=== PATIENT | female | born 1955 | race Caucasian/White ===

== ENCOUNTER 2020-12-13 08:09 | Outpatient (REF) | payer MEDICARE, SELFPAY ==
[2020-12-13 08:52] LABS: MANUAL DIFF FLAG NO
[2020-12-13 08:53] LABS: Glucose Urine UA NEG (NEG); Leukocyte Esterase Urine 1+ (NEG); Nitrite Urine NEG (NEG); Specific Gravity - Urine 1.025 (1.005-1.025); Urine Blood TRACE (NEG); Urine Ketones NEG (NEG); Urine Protein NEG (NEG-TRACE)
[2020-12-13 08:54] LABS: Basophils Absolute Auto 0.1 X10*3/uL (0.0-0.2); Basophils Percent Auto 1.4 % (0-2); Eosinophils Absolute Auto 0.3 X10*3/uL (0.0-0.4); Eosinophils Percent Auto 5.1 % (0-4); Hematocrit 42.6 % (37-47); Hemoglobin 14.3 g/dl (12.0-16.0); Imm Gran Abs Auto 0.01 X10*3/uL (0.00-0.03); Imm Gran Pct Auto 0.2 % (0.0-0.4); Lymphocytes Absolute Auto 1.3 X10*3/uL (1.2-4.9); Lymphocytes Percent Auto 23.5 % (20-40); Mean Corpuscular HGB Conc 33.6 g/dl (31.0-35.0); Mean Corpuscular Hemoglobin 30.6 pg (27.0-33.0); Mean Corpuscular Volume 91.2 fL (80-98); Mean Platelet Volume 10.2 fL (9.4-12.3); Monocytes Absolute Auto 0.5 X10*3/uL (0.1-1.2); Monocytes Percent Auto 8.1 % (2-11); Neutrophils Absolute Auto 3.5 X10*3/uL (2.0-8.3); Neutrophils Percent Auto 61.7 % (45-73); Platelet Count 247 X10*3/uL (160-400); Red Blood Count 4.67 X10*6/uL (4.20-5.50); Red Cell Distribution Width 12.6 % (11.0-16.0); White Blood Count 5.7 X10*3/uL (4.8-10.8)
[2020-12-13 08:59] LABS: Appearance Urine CLEAR; Color Urine YELLOW
[2020-12-13 09:02] LABS: Estimated Average Glucose 128 mg/dL; Hemoglobin A1c % 6.1 %
[2020-12-13 09:21] LABS: Bacteria Urine TRACE /LPF; RBC Urine 0-2 /HPF (0); Squamous Epithelial Cell Urine 2+ /LPF
[2020-12-13 09:46] LABS: Alanine Aminotransferase 24 U/L (0-31); Albumin Level 3.9 g/dL (3.5-5.0); Alkaline Phosphatase 58 U/L (39-117); Anion Gap 10 (12-20); Aspartate Amino Transferase 20 U/L (5-31); Bilirubin Total 0.7 mg/dL (0.0-1.0); Blood Urea Nitrogen 12 mg/dL (9-16); Calcium 9.1 mg/dL (8.4-10.2); Carbon Dioxide 28 mmol/L (22-29); Chloride 108 mmol/L (96-108); Cholesterol 188 mg/dL; Estimated Glomerular Filt Rate > 60; Glucose Random 105 mg/dL (60-115); HDL Cholesterol 42 mg/dL; LDL Cholesterol Calculated 113 mg/dl; Potassium 3.9 mmol/L (3.3-5.1); Sodium 142 mmol/L (135-145); Total Protein 6.3 g/dL (6.5-8.0); Triglycerides 166 mg/dL
[2020-12-13 10:07] LABS: Free T4 (Free Thyroxine) 0.91 ng/dL (0.71-1.85); Thyroid Stimulating Hormone 3.58 uIU/mL (0.32-4.0); Vitamin D 25-OH Total 43.4 ng/mL (>30)
[2020-12-13 10:24] LABS: Folate 19.2 ng/mL (> or = 4.0); Vitamin B12 259 pg/mL (200-900)
== END 2020-12-13 08:10 | disposition home or self-care (01) ==
LOC: HO.LAB 08:09
PROVIDERS: PCP Internal Medicine; Visit Provider Internal Medicine
DX: E03.9 Hypothyroidism, unspecified (principal); R73.02 Impaired glucose tolerance (oral); E78.00 Pure hypercholesterolemia, unspecified
CPT/HCPCS: 36415; 80053; 80061; 81001; 82306; 82607; 82746; 83036; 84439; 84443; 85025

== ENCOUNTER → 2021-02-09 09:04 | Outpatient (REF) | payer MEDICARE, SELFPAY ==
--- NOTE | 2021-02-09 09:07 | CA_ITS ---
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 Normal LV systolic function with grade 1 diastolic dysfunction 2. Mild tricuspid regurgitation 3. Normal RV systolic pressure 4. No gross pericardial effusion Findings Left Ventricle Normal left ventricular size, thickness, and systolic function. The visually estimated ejection fraction is between 65-70%. Spectral Doppler is indicative of an impaired relaxation filling pattern. E/E prime ratio is <8, consistent with normal filling pressures. Evidence suggests grade I (mild) diastolic dysfunction. Right Ventricle Normal right ventricular cavity size and systolic function. Atria Both atria are normal in size. There is lipomatous hypertrophy of the interatrial septum. There is no evidence of interatrial shunt. Aortic Valve There is mild calcification of the aortic valve. There is no aortic valve stenosis. There is no aortic valve regurgitation. Mitral Valve There is mild anterior and posterior mitral leaflet thickening. There is trace mitral valve regurgitation. There is no mitral valve stenosis. Pulmonic Valve The pulmonic valve is likely normal. There is trace pulmonic valve regurgitation. Tricuspid Valve Normal tricuspid valve structure. There is mild tricuspid valve regurgitation. The right ventricular systolic pressure is normal. The right ventricular systolic pressure is 27 mmHg. Normal right atrial pressure. There is no evidence of pulmonary hypertension. Great Vessels All visible segments of the aorta are normal in size. The pulmonary artery was not well visualized. Venous The inferior vena cava is normal in size and collapses greater than 50% with inspiration. Pericardium/Pleural There is no evidence of pericardial effusion. Prior Study Comparison Changes noted compared to prior study dated: 02/07/2016. tricuspid regurgitation is mild Measurements 2D Linear Measurements IVSd: 1.11 0.6-0.9/0.6-1.0 cm LVIDd: 4.32 3.9-5.3/4.2-5.9 cm LVIDd Index: 2.34 2.4-3.2/2.2-3.1 cm/m2 LVIDs: 3.05 2.0-3.6 cm LVPWd: 1.19 0.7-1.1 cm Ao Root: 3.00 2.1-3.5 cm LA Diam: 2.90 2.7-3.8/3.0-4.0 cm LAIDs Index: 1.57 1.5-2.3 cm/m2 LV Mass: 217.88 67-162/88-224 g LV Mass Index: 117.77 43-95/49-115 g/m2 LVOT Diam: 2.20 3.0+(-)1.3 cm 2D Systolic Function EF 4C: 73.70 >55% EF 2C: 72.70 >55% EF BiP: 74.00 >55% Mitral Valve MV Pk E: 0.54 MV PK A: 0.83 MV Decel Time: 231.00 E/A: 0.70 E'Lateral: 8.27 E'Medial: 4.68 E/E' Med: 11.50 E/E' Lat: 6.50 PHT: 68.00 MVA PHT: 3.24 Decel Tyler: 2.33 Aortic Valve AoV Pk Dylan: 1.32 AoV Pk Grad: 7.00 LVOT LVOT Pk Dylan: 0.85 LVOT Mn Dylan: 0.58 LVOT VTI: 0.19 LVOT Pk Grad: 3.00 LVOT Mn Grad: 2.00 LVOT Diam: 2.20 LVOT Area: 3.80 Diastolic Function MV Pk E: 0.54 MV Pk A: 0.83 E/A: 0.70 E'Medial: 4.68 E/E' Med: 11.50 E' Laterial: 8.27 E/E' Lat: 6.50 Right Ventricle TAPSE (mm): 2.30 Tricuspid Valve TR Pk Dylan: 2.46 TR Pk Grad: 24.00 RA Press: 3.00 RVSP: 27.00 Great Vessels Aorta Ao Root-2D: 3.00 2.0-3.7 cm Ao Asc: 3.40 2.1-3.4 cm Updated in Other Vendor System with Status of Final Tello Salazar MD electronically signed on 02/10/2021 9:03:24 AM with status of Final
== END ==
LOC: HO.CARD 09:04
PROVIDERS: Visit Provider Internal Medicine
DX: I07.1 Rheumatic tricuspid insufficiency (principal)
CPT/HCPCS: 93306

== ENCOUNTER 2021-06-20 18:21 | Outpatient (REF) | payer MEDICARE, SELFPAY | END 2021-06-20 18:22 | disposition home or self-care (01) | LOC: HO.LNP 18:21 | PROVIDERS: Visit Provider Nurse Practitioner Family | DX: M54.50 Low back pain, unspecified (principal) | CPT/HCPCS: 87086 ==

== ENCOUNTER 2021-07-13 09:51 | Outpatient (REF) | payer MEDICARE, SELFPAY ==
--- NOTE | ~2021-07-13 | US_ITS ---
EXAMINATION: US RETROPERITONEAL LIMITED (RENAL ONLY) CLINICAL INFORMATION: Low back pain, unspecified. COMPARISON: None TECHNIQUE: Real-time imaging of the kidneys. FINDINGS: RIGHT KIDNEY: 10.4 x 4.2 x 5.4 cm (SAG x AP x TRV). The kidney is normal in size, contour, and echogenicity. Renal cortical thickness is normal. No calculi or focal parenchymal lesions. There is mild fullness of kidney pelvis. There are scattered echogenic areas likely vascular calcifications. LEFT KIDNEY: 10.2 x 5.1 x 4.3 cm (SAG x AP x TRV). The kidney is normal in size, contour, and echogenicity. Renal cortical thickness is normal. No renal calculi or focal parenchymal lesions. There is mild fullness of left kidney pelvis. US/US renal BI IMPRESSION: 1. Scattered echogenic vascular calcifications throughout the right kidney. 2. No echogenic stones or hydronephrosis seen. There is mild fullness of bilateral kidney pelvis.
[2021-07-13 11:36] LABS: Appearance Urine CLEAR; Color Urine YELLOW; Glucose Urine UA NEG (NEG); Leukocyte Esterase Urine NEG (NEG); Nitrite Urine NEG (NEG); PH 5.5 (5.0-8.0); Urine Blood NEG (NEG); Urine Ketones NEG (NEG); Urine Protein NEG (NEG-TRACE)
== END 2021-07-13 09:52 | disposition home or self-care (01) ==
LOC: HO.US 09:51
PROVIDERS: PCP Internal Medicine; Visit Provider Nurse Practitioner Family
DX: M54.50 Low back pain, unspecified (principal)
CPT/HCPCS: 76775; 81003

== ENCOUNTER 2021-08-08 08:31 | Outpatient (REF) | payer MEDICARE, SELFPAY ==
--- NOTE | ~2021-08-08 | MM_ITS ---
EXAMINATION: MM SCREENING DIGITAL BREAST TOMOSYNTHESIS, BILATERAL CLINICAL INFORMATION: Screening. Asymptomatic. The lifetime risk of breast cancer based on the Tyrer-Cuzick Model is 4.2%. COMPARISON: Mammography: December 07, 2019 and studies dating back to July 25, 2013 TECHNIQUE: Digital breast tomosynthesis is performed in both the craniocaudal and mediolateral oblique views along with computer-aided detection (CAD). Synthesized 2D images are generated from the tomosynthesis. FINDINGS: There are scattered areas of fibroglandular density (ACR BI-RADS breast composition Category b). There are no significant masses, abnormal calcifications, or other abnormalities. MM/MM tomosynthesis screening BI IMPRESSION: There are no significant changes from prior study. ASSESSMENT: BI-RADS 1: Negative RECOMMENDATION: Routine annual mammography screening. This patient's information was entered into a reminder system with a target due date for their next mammogram.
[2021-08-08 10:56] LABS: Anion Gap 12 (12-20); Blood Urea Nitrogen 13 mg/dL (9-16); Carbon Dioxide 29 mmol/L (22-29); Chloride 105 mmol/L (96-108); Estimated Glomerular Filt Rate > 60; Glucose Random 110 mg/dL (60-115); Potassium 4.1 mmol/L (3.3-5.1); Sodium 142 mmol/L (135-145)
== END 2021-08-08 08:32 | disposition home or self-care (01) ==
LOC: HO.MAMMO 08:31
PROVIDERS: Absent Provider Nurse Practitioner Family; PCP Internal Medicine; Visit Provider Internal Medicine
DX: M54.50 Low back pain, unspecified (principal); Z12.31 Encounter for screening mammogram for malignant neoplasm of breast
CPT/HCPCS: 36415; 77063; 77067; 80048

== ENCOUNTER 2022-08-09 08:01 | Outpatient (REF) | payer MEDICARE, SELFPAY ==
--- NOTE | ~2022-08-09 | MM_ITS ---
EXAMINATION: MM SCREENING DIGITAL BREAST TOMOSYNTHESIS, BILATERAL CLINICAL INFORMATION: Screening. Asymptomatic. The lifetime risk of breast cancer based on the Tyrer-Cuzick Model is 4.7%. COMPARISON: Mammography: August 08, 2021 and studies dating back to August 05, 2015 TECHNIQUE: Digital breast tomosynthesis is performed in both the craniocaudal and mediolateral oblique views along with computer-aided detection (CAD). Synthesized 2D images are generated from the tomosynthesis. FINDINGS: There are scattered areas of fibroglandular density (ACR BI-RADS breast composition Category b). There are no significant masses, abnormal calcifications, or other abnormalities. MM/MM tomosynthesis screening BI IMPRESSION: No significant changes ASSESSMENT: BI-RADS 1: Negative RECOMMENDATION: Routine annual mammography screening. This patient's information was entered into a reminder system with a target due date for their next mammogram.
--- NOTE | ~2022-08-09 | MM_ITS ---
EXAMINATION: BONE DENSITOMETRY CLINICAL INDICATION: Osteoporosis. COMPARISON: Previous BD dated 11/10/2019 and baseline BD dated 04/06/2011. TECHNIQUE: Using a [employer] DXA System (software version: 13.1) manufactured by [employer], dual-energy x-ray absorptiometry was performed of the lumbar spine and left hip. The images are of good technical quality. Summary results are attached. FINDINGS: AP SPINE L1-L4: Current: BMD 1.144 g/cm2, Z-score 0.9, T-score -0.3, normal, 4.0% increase from previous, 0.5% decrease from baseline (<5% change is not significant). Prior: BMD 1.100 g/cm2. Baseline: BMD 1.150 g/cm2. LEFT FEMUR, NECK: Current: BMD 0.780 g/cm2, Z-score -0.5, T-score -1.9, osteopenia. Prior: BMD 0.802 g/cm2. Baseline: BMD 0.897 g/cm2. LEFT FEMUR, TOTAL: Current: BMD 0.870 g/cm2, Z-score 0.0, T-score -1.1, osteopenia, 1.3% increase from previous, 5.9% decrease from baseline (<5% change is not significant). Prior: BMD 0.859 g/cm2. Baseline: BMD 0.925 g/cm2. IDENTIFIED RISK FACTORS: Menopause, height loss, hyperthyroidism, low calcium intake, secondary osteoporosis, thiazide. HISTORY OF FRACTURE: None listed. MEDICATIONS: Calcium or multivitamin. Vitamin D. MM/XR DEXA axial skeleton IMPRESSION: 1. DIAGNOSIS: Osteopenia based on the lowest T-score value of -1.9 in the femoral neck applying World Health Organization criteria. 2. 10-YEAR FRACTURE RISK PREDICTION, FRAX: Major osteoporotic fracture (clinical spine, forearm, hip or shoulder) 10.8%. Hip fracture 1.8%. 3. Treatment Recommendations: NOF guidelines recommend consideration for treatment in postmenopausal women and men age 50 and older presenting with the following: -A hip or vertebral (clinical or morphometric) fracture. -T-score less than or equal to -2.5 at the femoral neck or spine after appropriate evaluation to exclude secondary causes. -Low bone mass at the hip or spine and a 10-year fracture probability by FRAX of greater than or equal to 3% for hip fracture or greater than or equal to 20% for major osteoporotic fracture based on the [place] adapted WHO algorithm. 4. Other Recommendations: All treatment decisions require clinical judgment and consideration of individual patient factors, including patient preferences, comorbidities, previous drug use, risk factors not captured in the FRAX model (e.g. frailty, falls, vitamin D deficiency, increased bone turnover, interval significant decline in bone density) and possible under or overestimation of fracture risk by FRAX. Additional medical evaluation for secondary cause of low bone mineral density may be appropriate. FUTURE SCAN RECOMMENDATION: People with diagnosed cases of osteoporosis or at high risk for fracture should have regular bone mineral density tests. For patients eligible for Medicare, routine testing is allowed once every 2 years. The testing frequency can be increased to one year for patients who have rapidly progressing disease, those who are receiving or discontinuing medical therapy to restore bone mass, or have additional risk factors.
[2022-08-09 08:09] LABS: MANUAL DIFF FLAG NO
[2022-08-09 08:43] LABS: Basophils Absolute Auto 0.1 X10*3/uL (0.0-0.2); Basophils Percent Auto 1.5 % (0-2); Eosinophils Absolute Auto 0.2 X10*3/uL (0.0-0.4); Eosinophils Percent Auto 4.3 % (0-4); Hematocrit 42.3 % (37.0-47.0); Hemoglobin 14.6 g/dl (12.0-16.0); Lymphocytes Absolute Auto 1.4 X10*3/uL (1.2-4.9); Lymphocytes Percent Auto 29.9 % (20-40); Mean Corpuscular HGB Conc 34.5 g/dl (31.0-35.0); Mean Corpuscular Hemoglobin 30.9 pg (27.0-33.0); Mean Corpuscular Volume 89.4 fL (80.0-98.0); Mean Platelet Volume 10.5 fL (9.4-12.3); Monocytes Absolute Auto 0.4 X10*3/uL (0.1-1.2); Monocytes Percent Auto 8.8 % (2-11); Neutrophils Absolute Auto 2.6 x10*3/uL (2.0-8.3); Neutrophils Percent Auto 55.5 % (45-73); Platelet Count 239 X10*3/uL (160-400); Red Blood Count 4.73 X10*6/uL (4.20-5.50); White Blood Count 4.7 X10*3/uL (4.8-10.8)
[2022-08-09 09:20] LABS: Alanine Aminotransferase 20 U/L (0-31); Alkaline Phosphatase 61 U/L (39-117); Anion Gap 13 (12-20); Aspartate Amino Transferase 19 U/L (5-31); Bilirubin Total 0.7 mg/dL (0.0-1.0); Blood Urea Nitrogen 16 mg/dL (9-16); Calcium 9.1 mg/dL (8.4-10.2); Carbon Dioxide 26 mmol/L (22-29); Chloride 109 mmol/L (96-108); Cholesterol 192 mg/dL; Estimated Glomerular Filt Rate > 60; Glucose Random 108 mg/dL (60-115); HDL Cholesterol 43 mg/dL; LDL Cholesterol Calculated 126 mg/dl; Potassium 4.1 mmol/L (3.3-5.1); Sodium 144 mmol/L (135-145); Total Protein 6.4 g/dL (6.5-8.0); Triglycerides 115 mg/dL
[2022-08-09 09:42] LABS: Folate 16.7 ng/mL (> or = 4.0); Free T4 (Free Thyroxine) 1.06 ng/dL (0.71-1.85); Thyroid Stimulating Hormone 0.47 uIU/mL (0.32-4.0); Vitamin B12 225 pg/mL (200-900); Vitamin D 25-OH Total 57.9 ng/mL (>30)
== END 2022-08-09 08:02 | disposition home or self-care (01) ==
LOC: HO.MAMMO 08:01
PROVIDERS: PCP Internal Medicine; Visit Provider Internal Medicine
DX: Z13.820 Encounter for screening for osteoporosis (principal); Z12.31 Encounter for screening mammogram for malignant neoplasm of breast; E03.9 Hypothyroidism, unspecified; I10 Essential (primary) hypertension; E78.00 Pure hypercholesterolemia, unspecified; M85.80 Other specified disorders of bone density and structure, unspecified site; M81.0 Age-related osteoporosis without current pathological fracture; Z02.0 Encounter for examination for admission to educational institution; Z78.0 Asymptomatic menopausal state
CPT/HCPCS: 36415; 77063; 77067; 77080; 80053; 80061; 82306; 82607; 82746; 84439; 84443; 85025; 86787

== ENCOUNTER → 2022-10-10 10:19 | Outpatient (BNVA) | payer MEDICARE, SELFPAY | PROVIDERS: PCP Internal Medicine; Visit Provider Internal Medicine | DX: R19.5 Other fecal abnormalities (principal) | CPT/HCPCS: 99202 ==

== ENCOUNTER → 2023-01-10 06:56 | Day surgery (SDC) | payer MEDICARE, SELFPAY ==
[2023-01-08 10:11] VITALS: BMI 30.6
--- NOTE | 2023-01-09 11:06 | HO.ANESPROP2 ---
Documented by User: Janis Rivera NP 01/09/23 11:06 HPI - Anesthesia Eval Consult details Narrative: 68yo F for Colonoscopy PMFSH Active Problems Active Problems: All Active Problems (Updated 01/08/23 @ 10:12 by Vanessa Mcknight RN) Adult general medical exam (Acute) Photosensitive contact dermatitis (Acute) Low back pain (Acute) Knee pain (Acute) Foot pain, bilateral (Acute) Palpitations (Acute) Osteopenia (Acute) Positive colorectal cancer screening using Cologuard test (Acute) Vitamin B 12 deficiency (Acute) Moderate tricuspid regurgitation (Acute) Hypersomnia (Acute) Osteopenia (Acute) Impaired glucose tolerance (Acute) Hypertension (Acute) Obesity (BMI 30-39.9) (Acute) Hypothyroid (Acute) Past Medical History Medical History Colon cancer screening Colonoscopy refused Graves disease Hypersomnia Hypertension Hypothyroid Impaired glucose tolerance Medicare annual wellness visit, initial Moderate tricuspid regurgitation Obesity (BMI 30-39.9) Osteopenia Family History Family History Father Colon cancer Mother CAD (coronary artery disease) Myocardial infarction Paternal Aunt Myocardial infarction Sister Diabetes Hypertension Surgical History Surgical History History of eye surgery History of oral surgery History of tonsillectomy History of tubal ligation Hx of colonoscopy Social History Social History Housing: House Alcohol intake: current Alcohol intake frequency: holidays/special occasions only Patient Tobacco Use Status: Former Tobacco user Tobacco use type: Cigarette Years Smoked: 15 years old e-Cigarette/Vaping Use: Never Used Second Hand Smoke Exposure: No Advance Directives: No Advance Directives Information Provided: Yes service: No Current occupational status: retired Cognitive needs: No Hearing needs: No Vision needs: Yes (glasses) Meds Allergies Allergy/AdvReac Type Severity Reaction Status Date / Time venom-honey bee Allergy Intermediate swelling Verified 10/10/22 10:25 sulfamethoxazole AdvReac Intermediate nausea Verified 10/10/22 10:25 [From Bactrim] trimethoprim [From Bactrim] AdvReac Intermediate nausea Verified 10/10/22 10:25 estradiol [From Vagifem] AdvReac Unknown rash Verified 10/10/22 10:25 Home Medications Medication Instructions Recorded Confirmed Last Taken Type cholecalciferol (vitamin D3) 50 50 mcg PO DAILY 03/01/20 01/08/23 Unknown History mcg (2,000 unit) capsule multivitamin,[id number] 1 tab PO DAILY 03/01/20 01/08/23 Unknown History (Complete Multivitamin tablet) Exam Exam Date and Time: January 09, 2023 1106 Height,Weight and Vital Signs: Height 5 ft 3 in Weight 78.471 kg Narrative Narrative: ECHO 2020 Conclusions: - 1. Normal LV systolic function with grade 1 diastolic? dysfunction? 2. Mild tricuspid regurgitation? 3. Normal RV systolic pressure ? 4. No gross pericardial effusion ? ? Assessment and Plan Assessment Anesthesia Assessment: Chart Reviewed Documented by User: Sherry Christina MD 01/10/23 07:54 [facility] Past Medical History Medical History Colon cancer screening Colonoscopy refused Graves disease Hypersomnia Hypertension Hypothyroid Impaired glucose tolerance Medicare annual wellness visit, initial Moderate tricuspid regurgitation Obesity (BMI 30-39.9) Osteopenia Family History Family History Father Colon cancer Mother CAD (coronary artery disease) Myocardial infarction Paternal Aunt Myocardial infarction Sister Diabetes Hypertension Family history of problems with anesthesia: No Surgical History Surgical History History of eye surgery History of oral surgery History of tonsillectomy History of tubal ligation Hx of colonoscopy History of Problems with Anesthesia: No Social History Social History Housing: House Alcohol intake: current Alcohol intake frequency: holidays/special occasions only Patient Tobacco Use Status: Former Tobacco user Tobacco use type: Cigarette Years Smoked: 15 years old e-Cigarette/Vaping Use: Never Used Second Hand Smoke Exposure: No Advance Directives: No Advance Directives Information Provided: Yes service: No Current occupational status: retired Cognitive needs: No Hearing needs: No Vision needs: Yes (glasses) Meds Allergies Allergy/AdvReac Type Severity Reaction Status Date / Time venom-honey bee Allergy Intermediate swelling Verified 10/10/22 10:25 sulfamethoxazole AdvReac Intermediate nausea Verified 10/10/22 10:25 [From Bactrim] trimethoprim [From Bactrim] AdvReac Intermediate nausea Verified 10/10/22 10:25 estradiol [From Vagifem] AdvReac Unknown rash Verified 10/10/22 10:25 Home Medications Medication Instructions Recorded Confirmed Last Taken Type cholecalciferol (vitamin D3) 50 50 mcg PO DAILY 03/01/20 01/08/23 Unknown History mcg (2,000 unit) capsule multivitamin,[id number] 1 tab PO DAILY 03/01/20 01/08/23 Unknown History (Complete Multivitamin tablet) Exam Airway Mallampati Class: II TM Dist: >3cm Neck ROM: Full Heart: rrr Lungs: ta Assessment and Plan Assessment Anesthesia Assessment: Anesthesia Plan Discussed Final Anesthetic Review Family History of Problems with Anesthesia: No History of Problems with Anesthesia: No NPO: Yes ASA Class: II Final Preanesthetic Review: No Changes in Pt Med Stat, Meds/Allgs Chart Reviewed, Consent Obtained/Reviewed and Anes Risks/Benef Reviewed Patient Risk: Low Procedure Risk: Low Anesthetic Plan Anesthetic Plan: MAC: Disposition: Standard PACU
--- NOTE | 2023-01-10 07:43 | ECG_ITS ---
Test Reason : st depression Blood Pressure : / mmHG Vent. Rate : 065 BPM Atrial Rate : 065 BPM P-R Int : 168 ms QRS Dur : 086 ms QT Int : 418 ms P-R-T Axes : 016 -17 -71 degrees QTc Int : 434 ms Normal sinus rhythm Minimal voltage criteria for LVH, may be normal variant ( R in aVL ) ST & T wave abnormality, consider inferior ischemia ST & T wave abnormality, consider anterolateral ischemia Abnormal ECG When compared with ECG of 15-FEB-2020 09:06, T wave inversion now evident in Anterior leads Referred By: Maik Caal Electronically Signed By:VENECIA DE
[2023-01-10 08:07] VITALS: BP 136/78; PULSE 82; RESP 18; TEMP 36.3; O2SAT 94
--- NOTE | 2023-01-10 09:19 | PCS.ADM ---
Proedure canceled per Dr Velasquez/Dr Perez/ Dr Marquez 2 abn EKG needing cardiology workup prior to next procedure
== END ==
PROVIDERS: PCP Internal Medicine; Visit Provider Internal Medicine
DX: R19.5 Other fecal abnormalities (principal); Z53.09 Procedure and treatment not carried out because of other contraindication; R94.31 Abnormal electrocardiogram [ECG] [EKG]
CPT/HCPCS: 93005

== ENCOUNTER 2023-01-22 13:52 | Outpatient (AMB) | payer MEDICARE, SELFPAY ==
[2023-01-22 14:03] VITALS: BP 124/76; PULSE 76; BMI 29.7
--- NOTE | 2023-01-22 14:03 | MHC.OFFVIS ---
Intake Vital Signs 01/22/23 14:03 Height 5 ft 3 in Weight 167 lb 8.821 oz BMI 29.7 BP 124/76 Blood Pressure Location Lt brachial Position Sitting Pulse 76 Intake Visit Reasons: INSPECT[employer]GE/ Po/abnormal ekg Intake Note: Juan Bernal abnormal ekg was in [facility] this morning with chest pressure Engineer Chief Required: No Allergies venom-honey bee Allergy (Intermediate, Verified 10/10/22 10:25) swelling sulfamethoxazole [From Bactrim] Adverse Reaction (Intermediate, Verified 10/10/22 10:25) nausea trimethoprim [From Bactrim] Adverse Reaction (Intermediate, Verified 10/10/22 10:25) nausea estradiol [From Vagifem] Adverse Reaction (Unknown, Verified 10/10/22 10:25) rash Medication List - Last Reconciled 01/22/23 by Tello Salazar MD cholecalciferol (vitamin D3) 50 mcg PO DAILY cyanocobalamin (vitamin B-12) 1,000 mcg PO DAILY hydrochlorothiazide 12.5 mg PO DAILY levothyroxine 88 mcg PO QAM multivitamin,[id number] (Complete Multivitamin tablet) 1 tab PO DAILY HPI HPI Comments History of Present Illness Details Thank you for referring Mira in cardiology consultation today for abnormal EKG. She is a pleasant 68-year-old woman with prior history of hypertension and tricuspid regurgitation which was mild by prior echocardiogram. She has no show pulmonary hypertension a coronary artery disease. She has had a myocardial perfusion imaging in 2016 which was within normal limits. See in general good physical health. She presented to emergency room today at [facility] with chest discomfort. EKG there showed similar changes as she had in December which was done for pre colonoscopy. EKG is abnormal which shows diffuse ST T wave changes in inferior and anterolateral leads. Persistent changes noted repeat EKG. She denies any clear exertional symptoms. Her troponins today with chest pressure within normal limits. She was discharged and comes for cardiology consultation today. She says a blood pressure is generally well controlled. She denies any heart failure symptoms. Denies any exertional lightheadedness, syncope. She does have intermittent history of palpitation that happens happens twice with rise year that causes prolonged palpitations associated with lightheadedness. There has never been an EKG performed during that time to assess for any arrhythmias. She has family history of atrial fibrillation in her sister. [facility] Medical History Colon cancer screening Colonoscopy refused Graves disease Hypersomnia Hypertension Hypothyroid Impaired glucose tolerance Medicare annual wellness visit, initial Moderate tricuspid regurgitation Obesity (BMI 30-39.9) Osteopenia Surgical History History of eye surgery History of oral surgery History of tonsillectomy History of tubal ligation Hx of colonoscopy Family History Father Colon cancer Mother CAD (coronary artery disease) Myocardial infarction Paternal Aunt Myocardial infarction Sister Diabetes Hypertension Social History Housing: House Are you a primary pharmacy customer care specialist to a significant other at home: No Do you presently have visiting nurse or other home services: No Alcohol intake: current Alcohol intake frequency: holidays/special occasions only Patient Tobacco Use Status: Former Tobacco user Tobacco use type: Cigarette Years Smoked: 15 years old e-Cigarette/Vaping Use: Never Used Second Hand Smoke Exposure: No service: No Current occupational status: retired Cognitive needs: No Hearing needs: No Vision needs: Yes (glasses) Review of Systems Const Denies chills, Denies daytime sleepiness, Denies fatigue, Denies fever(s), Denies frequent falls, Denies poor appetite, Denies snoring, Denies stops breathing during sleep, Denies weakness, Denies weight gain and Denies weight loss Eyes Denies loss of vision ENT Denies dizziness and Denies hearing loss Card Denies chest pain, Denies claudication, Denies leg edema, Denies lightheadedness, Denies palpitations, Denies dyspnea, Denies dyspnea on exertion and Denies orthopnea Resp Denies cough, Denies excessive phlegm production, Denies dyspnea, Denies dyspnea on exertion, Denies snoring and Denies wheezing GI Denies abdominal pain, Denies hematochezia, Denies change in bowel habits, Denies nausea and Denies vomiting Denies urinary frequency and Denies dysuria Musc Denies arthralgias, Denies muscle weakness, Denies numbness and Denies other (frequent falls) Skin/Breast Denies nail changes and Denies rash Neuro Denies Abnormal speech present, Denies dizziness, Denies frequent falls, Denies loss of vision, Denies memory loss, Denies numbness and Denies weakness Psych Denies depression and Denies memory loss Endo Denies fatigue and Denies palpitations Pro/Lymph Reports easy bruising and Reports other (anemia) Aller/Immun Denies wheezing Physical Exam Vital Signs: Last Vital Signs Pulse 76 01/22/23 14:03 BP 124/76 01/22/23 14:03 BMI result Body Mass Index 29.7 Const General: cooperative, comfortable, no acute distress, alert, awake and Physically active Nutritional Appearance: overweight Orientation/consciousness: patient oriented x3 Limitations: no limitations HEENT Head: Yes normocephalic and Yes atraumatic Neck Neck: Yes trachea midline, Yes supple and Yes no JVD Resp Effort & Inspection: normal respiratory effort Auscultation: clear to auscultation bilaterally Cardio Jugular venous distension: no JVD Palpation: normal PMI Rate: regular rate Rhythm: regular rhythm Heart sounds: S1 normal heart sound present, S2 normal heart sound present, no click, no gallops, no murmurs and no rubs GI Auscultation: normal bowel sounds Skin General skin exam: no rashes or lesions noted Neuro General: patient oriented x3 and no focal motor deficits Speech: No Abnormal speech present Extrem General: Yes no clubbing, cyanosis or edema Assessment & Plan Assessment & Plan (1) EKG abnormality: Code(s): R94.31 - Abnormal electrocardiogram [ECG] [EKG] Plan: Abnormal EKG with diffuse ST T wave changes in multiple leads. This could be seen in patient with coronary artery disease especially with her chest pressure symptoms need to be ruled out. Will suggest a coronary CTA to further assess for it. Other possibilities includes LV systolic/diastolic dysfunction hypertensive heart disease and/or RV enlargement for example related to pulmonary hypertension. Will obtain echocardiogram to assess for the same. These tests will be performed in near future. There is no obvious structural heart abnormalities, no further workup and treatment would be pursued. Treatment based on the findings of about mention test. (2) Palpitations: Code(s): R00.2 - Palpitations Plan: Patient with also many years of intermittent episodes of palpitations which are long-lasting associated lightheadedness. As high likelihood of atrial fibrillation given her risk factors especially family history, weight as well as longstanding hypertension. This needs to be ruled out. Will suggest smart phone based EKG monitoring system to assess for presence of atrial fibrillation that would change our management plan. This was discussed with her. Avoidance of stimulants was discussed. (3) Hypertension: Code(s): I10 - Essential (primary) hypertension Qualifiers: Hypertension type: essential hypertension Qualified Code(s): I10 - Essential (primary) hypertension Plan: Hypertension which is currently well optimized on low-dose hydrochlorothiazide therapy. Advised to continue the same. Advised low-salt diet. Advised to monitor blood pressure intermittently at home and maintain a log. Goal blood pressure less than 130/84. Pleasant will follow up in the clinic in 6 weeks time, sooner p.r.n.. Thank you for allowing me to partake in her care Coding Level of Care Code New Pt Level 4 (76861) Diagnoses EKG abnormality R94.31 Palpitations R00.2 Hypertension I10 Hypertension type: essential hypertension
== END 2023-01-22 14:49 | disposition home or self-care (01) ==
PROVIDERS: PCP Internal Medicine; Visit Provider Internal Medicine Cardiovascular Disease
DX: R94.31 Abnormal electrocardiogram [ECG] [EKG] (principal); R00.2 Palpitations; I10 Essential (primary) hypertension
CPT/HCPCS: 99204

== ENCOUNTER → 2023-01-22 13:52 | Outpatient (BNVA) | payer MEDICARE, SELFPAY | PROVIDERS: PCP Internal Medicine; Visit Provider Internal Medicine Cardiovascular Disease | DX: R94.31 Abnormal electrocardiogram [ECG] [EKG] (principal); R00.2 Palpitations; I10 Essential (primary) hypertension | CPT/HCPCS: 99202 ==

== ENCOUNTER 2023-04-09 08:48 | Outpatient (AMB) | payer MEDICARE, SELFPAY ==
[2023-04-09 08:51] VITALS: BP 132/70; PULSE 77; O2SAT 96; BMI 30.6
--- NOTE | 2023-04-09 08:51 | A.OFFPC_ITS ---
Vital Signs 04/09/23 08:51 Height 5 ft 3 in Weight 173 lb BMI 30.6 BP 132/70 Blood Pressure Location Lt brachial Position Sitting Pulse 77 Pulse Source Pulse Oximeter Pulse Oximetry (%) 96 Oxygen Delivery Method Room Air Intake Visit Reasons: cologuard positive, vitamin b 12 Professional Organizer Required: No Case Hardener: Not Required per policy Accompanied by: Self / Same As Patient Allergies venom-honey bee Allergy (Intermediate, Verified 04/09/23 08:51) swelling sulfamethoxazole [From Bactrim] Adverse Reaction (Intermediate, Verified 04/09/23 08:51) nausea trimethoprim [From Bactrim] Adverse Reaction (Intermediate, Verified 04/09/23 08:51) nausea estradiol [From Vagifem] Adverse Reaction (Unknown, Verified 04/09/23 08:51) rash Tobacco use date assessed: 07/03/22 Fall risk assessment: 1 Fall in past year Last assessed Fall Risk: 04/09/23 Dental Screening Dental Screen Date: 04/09/23 Did you have a dental visit in the last 12 months?: Yes Did you have a dental problem in the last 6 months where you did not have access to dental care?: No Was dental information given to patient?: Patient has dentist HPI cologuard positive, vitamin b 12 HPI Details 68-year-old obese female with hypothyroi dism hypertension impaired glucose tolerance osteopenia recently July 2022 positive Cologuard test patient was advised colonoscopy. Patient did see gastroenterology already and booked for 3-6 months... Patient was last seen in September 2022. Review of the notes . Patient went to the emergency room in January 2023 with chest pains patient has been sent to cardiology due to an abnormal EKG with diffuse ST T wave changes multiple leads patient was advised to get coronary CTA, echocardiogram [facility] Medical History Medicare annual wellness visit, initial Colon cancer screening Colonoscopy refused Moderate tricuspid regurgitation Hypersomnia Osteopenia Impaired glucose tolerance Graves disease Hypertension Obesity (BMI 30-39.9) Hypothyroid Surgical History Hx of colonoscopy History of eye surgery History of oral surgery History of tonsillectomy History of tubal ligation Family History Father Colon cancer Mother CAD (coronary artery disease) Myocardial infarction Paternal Aunt Myocardial infarction Sister Diabetes Hypertension Social History Housing: House Are you a primary technical healthcare consultant to a significant other at home: No Do you presently have visiting nurse or other home services: No Alcohol intake: current Alcohol intake frequency: holidays/special occasions only Patient Tobacco Use Status: Former Tobacco user Tobacco use type: Cigarette Years Smoked: 15 years old e-Cigarette/Vaping Use: Never Used Second Hand Smoke Exposure: No service: No Current occupational status: retired Cognitive needs: No Hearing needs: No Vision needs: Yes (glasses) Questionnaire PHQ-9 Over the last 2 weeks, how often have you been bothered by any of the following problems? 1. Little interest or pleasure in doing things: not at all 2. Feeling down, depressed, or hopeless: not at all 3. Trouble falling or staying asleep, or sleeping too much: not at all 4. Feeling tired or having little energy: not at all 5. Poor appetite or overeating: not at all 6. Feeling bad about yourself - or that you are a failure or have let yourself or your family down: not at all 7. Trouble concentrating on things, such as reading the newspaper or watching television: not at all 8. Moving or speaking so slowly that other people could have noticed. Or the opposite - being so fidgety or restless that you have been moving around a lot more than usual: not at all 9. Thoughts that you would be better off or of hurting yourself in some way: not at all Total score: 0 Depression Screening Interpretation: Negative Depression Screening Done: Yes Source: Developed by Drs. Edvin Phillip, Yamilet Rivera, Micky Deng and colleagues, with an educational radha from [employer]. Thrive Questionnaire Date Thrive assessed: 07/03/22 AUDIT C Alcohol Use Questionnaire (AUDIT-C) 1. How often do you have a drink containing alcohol?: Monthly or less Total Score: 1 Score Reviewed/Action Taken: No MOHAMUD-7 AMB Questionnaire MOHAMUD-7 Date MOHAMUD - 7 assessed: 07/03/22 Source: Developed by Yamilet Salinas B.W. Miguel, Micky Deng and colleagues, with an educational radha from [employer]. Physical exam (Primary Care) Vital Signs: Last Vital Signs Pulse 77 04/09/23 08:51 BP 132/70 04/09/23 08:51 Pulse Ox 96 04/09/23 08:51 Oxygen Delivery Method Room Air 04/09/23 08:51 BMI result Body Mass Index 30.6 Tobacco/Smoking Status: Tobacco use Status Tobacco use date assessed 07/03/22 04/09/23 08:52 Patient Tobacco Use Status Former Tobacco user 04/09/23 08:52 Tobacco use type Cigarette 04/09/23 08:52 e-Cigarette/Vaping Use Never Used 04/09/23 08:52 PHQ-9: PHQ-9 Score PHQ-9: Total score 0 04/09/23 08:52 Depression Screening Interpretation: Negative Thrive Assessment: Date of Thrive Assessment Date Thrive assessed 07/03/22 04/09/23 08:52 Const General: alert; No acute distress Eyes Conjunctivae: conjunctivae normal Resp Auscultation: clear to auscultation bilaterally Cardio Rate: regular rate Rhythm: regular rhythm GI Inspection: Yes normal to inspection Extrem General: Yes normal to inspection and No edema Assessment and Plan Assessment & Plan (1) Positive colorectal cancer screening using Cologuard test: Code(s): R19.5 - Other fecal abnormalities Plan: Patient has met with Gastroenterology and will be scheduled for colonoscopy. (2) Obesity (BMI 30-39.9): Code(s): E66.9 - Obesity, unspecified Plan: Diet and exercise (3) Hypothyroid: Code(s): E03.9 - Hypothyroidism, unspecified Qualifiers: Hypothyroidism type: acquired Qualified Code(s): E03.9 - Hypothyroidism, unspecified Plan: Continue with thyroid medication (4) Hypertension: Code(s): I10 - Essential (primary) hypertension Qualifiers: Hypertension type: essential hypertension Qualified Code(s): I10 - Essential (primary) hypertension Plan: Continue with blood pressure medication. Decrease salt intake and exercise patient on hydrochlorothiazide 12.5 mg once a day (5) Impaired glucose tolerance: Code(s): R73.02 - Impaired glucose tolerance (oral) Plan: Decrease the amount of carbohydrate intake, pasta, bread, rice and potatoes are all sugar and that is aside from all the sweet stuff, remember that fruits are good but they are Sweet also. (6) Chest pain: Code(s): R07.9 - Chest pain, unspecified Plan: Patient has met with Cardiology already and CTA as well as echocardiogram requested. 04/2023 Orders: Orders Hemoglobin A1c 3 Months R73.02 - Impaired glucose tolerance (oral) Lipid Panel 3 Months E78.00 - Pure hypercholesterolemia, unspecified, R73.02 - Impaired glucose tolerance (oral) Complete Blood Count Auto Diff 3 Months R73.02 - Impaired glucose tolerance (oral) Comprehensive Met. Panel 3 Months R73.02 - Impaired glucose tolerance (oral) Thyroid Stimulating Hormone 3 Months R73.02 - Impaired glucose tolerance (oral) Vitamin B12 and Folate 3 Months R73.02 - Impaired glucose tolerance (oral) Free T4 (Free Thyroxine) 3 Months R73.02 - Impaired glucose tolerance (oral) Coding Level of Care Code Est Pt Level 4 (57141) Diagnoses Positive colorectal cancer screening using Cologuard test R19.5 Obesity (BMI 30-39.9) E66.9 Acquired hypothyroidism E03.9 Hypothyroidism type: acquired Essential hypertension I10 Hypertension type: essential hypertension Impaired glucose tolerance R73.02 Chest pain R07.9 Additional Codes PHQ-9 - 98817 - PHQ-9 Billing: ([id number])
== END 2023-04-09 09:19 | disposition home or self-care (01) ==
PROVIDERS: Visit Provider Internal Medicine
DX: I10 Essential (primary) hypertension (principal); R19.5 Other fecal abnormalities; E66.9 Obesity, unspecified; Z68.30 Body mass index [BMI] 30.0-30.9, adult; E03.9 Hypothyroidism, unspecified; R73.02 Impaired glucose tolerance (oral); R07.9 Chest pain, unspecified
CPT/HCPCS: 99214

== ENCOUNTER 2023-04-18 08:30 | Outpatient (REF) | payer MEDICARE, SELFPAY ==
[2023-04-18 09:59] LABS: Anion Gap 10 (12-20); Blood Urea Nitrogen 14 mg/dL (9-16); Calcium 9.1 mg/dL (8.4-10.2); Carbon Dioxide 30 mmol/L (22-29); Chloride 106 mmol/L (96-108); Estimated Glomerular Filt Rate > 60; Glucose Random 109 mg/dL (60-115); Potassium 3.6 mmol/L (3.3-5.1); Sodium 142 mmol/L (135-145)
== END 2023-04-18 08:31 | disposition home or self-care (01) ==
LOC: HO.LAB 08:30
PROVIDERS: PCP Internal Medicine; Visit Provider Internal Medicine Cardiovascular Disease
DX: R00.2 Palpitations (principal); R94.31 Abnormal electrocardiogram [ECG] [EKG]
CPT/HCPCS: 36415; 80048

== ENCOUNTER 2023-05-06 12:52 | Outpatient (AMB) | payer MEDICARE, SELFPAY ==
[2023-05-06 12:58] VITALS: BP 120/80; PULSE 84; BMI 31.2
--- NOTE | 2023-05-06 12:58 | A.OFFVIS_ITS ---
Intake Vital Signs 05/06/23 12:58 Height 5 ft 3 in Weight 176 lb 5.917 oz BMI 31.2 BP 120/80 Blood Pressure Location Lt brachial Position Sitting Pulse 84 Intake Visit Reasons: 6 WK FUP S/P ECHO+CTA Intake Note: 6 week follow-up after CTA feeling ok Bulk Mail Technician Required: No Allergies venom-honey bee Allergy (Intermediate, Verified 04/09/23 08:51) swelling sulfamethoxazole [From Bactrim] Adverse Reaction (Intermediate, Verified 04/09/23 08:51) nausea trimethoprim [From Bactrim] Adverse Reaction (Intermediate, Verified 04/09/23 08:51) nausea estradiol [From Vagifem] Adverse Reaction (Unknown, Verified 04/09/23 08:51) rash Medication List - Last Reconciled 05/06/23 by Tello Salazar MD atorvastatin 20 mg PO BEDTIME cholecalciferol (vitamin D3) 50 mcg PO DAILY cyanocobalamin (vitamin B-12) 1,000 mcg PO DAILY hydrochlorothiazide 12.5 mg PO DAILY levothyroxine 88 mcg PO QAM multivitamin,[id number]-[id number] (Complete Multivitamin tablet) 1 tab PO DAILY HPI HPI Comments History of Present Illness Details Mira Callejas comes for follow-up. She recently underwent coronary CTA with FFR which showed moderately severe LAD stenosis which was FFR positive in the distal LAD. She says she continues to have dull ache in her chest with exercise usually after she finishes her exercise. She was started on statin therapy recently. Although with exercise she continues to have symptoms. Denies any symptoms at rest or progressive symptoms. Denies any prolonged palpitation irregular heartbeat. Denies any heart failure symptoms. [facility] Medical History (Updated 05/06/23 @ 13:30 by Tello Salazar MD) CAD (coronary artery disease) Medicare annual wellness visit, initial Colon cancer screening Colonoscopy refused Moderate tricuspid regurgitation Hypersomnia Osteopenia Impaired glucose tolerance Graves disease Hypertension Obesity (BMI 30-39.9) Hypothyroid Surgical History Hx of colonoscopy History of eye surgery History of oral surgery History of tonsillectomy History of tubal ligation Family History Father Colon cancer Mother CAD (coronary artery disease) Myocardial infarction Paternal Aunt Myocardial infarction Sister Diabetes Hypertension Social History Housing: House Are you a primary rn critical care to a significant other at home: No Do you presently have visiting nurse or other home services: No Alcohol intake: current Alcohol intake frequency: holidays/special occasions only Comment: fell in garden Patient Tobacco Use Status: Former Tobacco user Tobacco use type: Cigarette Years Smoked: 15 years old e-Cigarette/Vaping Use: Never Used Second Hand Smoke Exposure: No service: No Current occupational status: retired Cognitive needs: No Hearing needs: No Vision needs: Yes (glasses) Review of Systems Const Denies chills, Denies fatigue, Denies fever(s), Denies frequent falls, Denies weakness, Denies weight gain and Denies weight loss ENT Denies dizziness Card Reports chest pain with activity, Denies leg edema, Denies lightheadedness, Denies palpitations, Denies dyspnea, Denies dyspnea on exertion, Denies orthopnea and Denies other (loss of consciousness) Resp Denies cough, Denies dyspnea and Denies dyspnea on exertion GI Denies hematochezia and Denies change in stool character Musc Denies abnormal gait, Denies muscle weakness, Denies numbness, Denies radiating pain into limb and Denies tingling Neuro Denies Abnormal speech present, Denies abnormal gait, Denies dizziness, Denies frequent falls, Denies numbness, Denies tingling and Denies weakness Endo Denies fatigue and Denies palpitations Physical Exam Vital Signs: Last Vital Signs Pulse 84 05/06/23 12:58 BP 120/80 05/06/23 12:58 BMI result Body Mass Index 31.2 Const General: cooperative, comfortable, no acute distress, alert, awake and Physically active Nutritional Appearance: overweight Orientation/consciousness: patient oriented x3 Limitations: no limitations HEENT Head: Yes normocephalic and Yes atraumatic Neck Neck: Yes trachea midline, Yes supple and Yes no JVD Resp Effort & Inspection: normal respiratory effort Auscultation: clear to auscultation bilaterally Cardio Jugular venous distension: no JVD Palpation: normal PMI Rate: regular rate Rhythm: regular rhythm Heart sounds: S1 normal heart sound present, S2 normal heart sound present, no click, no gallops, no murmurs and no rubs GI Auscultation: normal bowel sounds Skin General skin exam: no rashes or lesions noted Neuro General: patient oriented x3 and no focal motor deficits Speech: No Abnormal speech present Extrem General: Yes no clubbing, cyanosis or edema Assessment & Plan Assessment & Plan (1) CAD (coronary artery disease): Code(s): I25.10 - Atherosclerotic heart disease of [place] coronary artery without angina pectoris Plan: Patient with CAD which is of moderate to severe stenosis anatomic [place] but with FFR positive consistent with physiologically important stenosis although appears to have stable CAD. She has dull ache in her chest post exercise immediately which can last for up to 10 minutes. We discussed that these symptoms are suggestive of myocardial ischemia and represent angina. We discussed pathophysiology of supply demand mismatch. We discussed about management of this. Given chronic stable nature of CAD will require medical therapy as per ISCHEMIA trial. Will start her on Toprol-XL 50 mg and isosorbide 30 mg daily for treatment of angina. If her symptoms are completely resolved and will follow-up with exercise myocardial perfusion imaging to show that she has no ischemia on full medical therapy, can pursue medical therapy aggressively. Continue aspirin and statin therapy. Target goal LDL closer to 60 mg/dL. Pathophysiology of coronary artery disease was discussed in details. Will also suggest an echocardiogram to evaluate for LV systolic function and any regional wall motion abnormality which may also trigger interventional therapy. This was discussed with her. Will follow up in the clinic in 2 months time, sooner p.r.n.. Thank you for allowing me to partake in her care Orders: Orders NM cardiolite stress test 2 Weeks I25.10 - Atherosclerotic heart disease of [place] coronary artery without angina pectoris, R07.9 - Chest pain, unspecified CA stress test Today I25.10 - Atherosclerotic heart disease of [place] coronary artery without angina pectoris CA echo transthoracic complete 2 Months I25.10 - Atherosclerotic heart disease of [place] coronary artery without angina pectoris Medications: New isosorbide mononitrate ER 30 mg PO DAILY 30 tabs 3RF aspirin (Ecotrin Low Strength) 81 mg PO DAILY 30 tabs 1RF metoprolol succinate ER (Toprol XL) 50 mg PO DAILY 30 tabs 1RF Discontinued hydrochlorothiazide Discontinued Reason: Doctor's Order 12.5 mg PO DAILY 90 tabs 3RF Coding Level of Care Code Est Pt Level 4 (71255) Diagnoses CAD (coronary artery disease) I25.10
== END 2023-05-06 14:01 | disposition home or self-care (01) ==
PROVIDERS: PCP Internal Medicine; Visit Provider Internal Medicine Cardiovascular Disease
DX: I25.10 Atherosclerotic heart disease of native coronary artery without angina pectoris (principal)
CPT/HCPCS: 99214

== ENCOUNTER → 2023-05-06 12:52 | Outpatient (BNVA) | payer MEDICARE, SELFPAY | PROVIDERS: PCP Internal Medicine; Visit Provider Internal Medicine Cardiovascular Disease | DX: I25.10 Atherosclerotic heart disease of native coronary artery without angina pectoris (principal) | CPT/HCPCS: 99212 ==

== ENCOUNTER → 2023-06-25 07:30 | Outpatient (REF) | payer MEDICARE, SELFPAY ==
[2023-06-25 07:44] LABS: MANUAL DIFF FLAG NO
--- NOTE | 2023-06-25 07:45 | CA_ITS ---
Transthoracic Echocardiogram Patient (Last, First, Middle): Amanda De Oliveira A Gender: Female Date of : 1955 Age: 68 Procedure Date: 06/25/2023 Procedure Type: Transthoracic Echocardiogram Location: OP Height: 160.02 cm Weight: 81.65 kg BSA: 1.85 m2 Heart Rate: 54 bpm BP: 130 / 90 mmHg Tool Planer Set Up Operator: TO Referring MD: Tello Salazar MD Symptoms: I25.10 - Atherosclerotic heart disease of [place] coronary artery without... Study Quality: Adequate ECG Rhythm: Bradycardia Conclusions: - The left ventricular systolic function is normal. The calculated ejection fraction is 59% by biplane method. - No obvious valvular pathology seen on this study. Findings Procedure Information Contrast agent, definity, is being given per protocol without apparent complications. Left Ventricle Normal left ventricular cavity size. The left ventricular systolic function is normal. The calculated ejection fraction is 59% by biplane method. There is no evidence of regional wall motion abnormalities. Diastolic function is normal for age. There is mild septal asymmetric hypertrophy. Right Ventricle Normal right ventricular cavity size and systolic function. Atria Both atria are normal in size. Aortic Valve There is a normal trileaflet aortic valve. There is mild calcification of the aortic valve. There is no aortic valve stenosis. There is trace (trivial) aortic valve regurgitation. Mitral Valve The mitral valve appears normal. There is no mitral valve regurgitation. There is no mitral valve stenosis. Pulmonic Valve The pulmonic valve is likely normal. Tricuspid Valve Normal tricuspid valve structure. There is mild tricuspid valve regurgitation. There is no evidence of pulmonary hypertension. Great Vessels The asc aorta is normal in size. Venous The inferior vena cava is normal in size and collapses greater than 50% with inspiration. Pericardium/Pleural There is no evidence of pericardial effusion. Prior Study Comparison No significant change compared to prior study dated: 02/09/2021. Recommendations, Care & Conclusions No obvious valvular pathology seen on this study. Measurements 2D Linear Measurements IVSd: 1.17 0.6-0.9/0.6-1.0 cm LVIDd: 4.37 3.9-5.3/4.2-5.9 cm LVIDd Index: 2.36 2.4-3.2/2.2-3.1 cm/m2 LVIDs: 3.06 2.0-3.6 cm LVPWd: 0.99 0.7-1.1 cm LA Diam: 3.40 2.7-3.8/3.0-4.0 cm LAIDs Index: 1.84 1.5-2.3 cm/m2 LV Mass: 202.79 67-162/88-224 g LV Mass Index: 109.62 43-95/49-115 g/m2 LVOT Diam: 2.00 3.0+(-)1.3 cm 2D Systolic Function EF 4C: 60.40 >55% EF 2C: 55.20 >55% EF BiP: 58.70 >55% Mitral Valve MV VTI: 0.38 MV Pk Dylan: 0.83 MV Mn Dylan: 0.55 MV Pk Grad: 3.00 MV Mn Grad: 1.00 MV Pk E: 0.71 MV PK A: 0.63 MV Decel Time: 226.00 E/A: 1.10 E'Lateral: 7.18 E'Medial: 4.90 E/E' Med: 14.50 E/E' Lat: 9.90 PHT: 66.00 MVA PHT: 3.33 MVA Continuity: 1.68 Decel Glynn: 3.15 Aortic Valve AoV Pk Dylan: 1.33 AoV Mn Dylan: 0.92 AoV VTI: 0.36 AoV Pk Grad: 7.00 Aov Mn Grad: 4.00 GARRETT Cont.VTI: 1.76 LVOT LVOT Pk Dylan: 0.76 LVOT Mn Dylan: 0.51 LVOT VTI: 0.20 LVOT Pk Grad: 2.00 LVOT Mn Grad: 1.00 LVOT Diam: 2.00 LVOT Area: 3.14 Diastolic Function MV Pk E: 0.71 MV Pk A: 0.63 E/A: 1.10 E'Medial: 4.90 E/E' Med: 14.50 E' Laterial: 7.18 E/E' Lat: 9.90 Right Ventricle TAPSE (mm): 19.90 TVS' Dylan: 9.90 Tricuspid Valve TR Pk Dylan: 2.76 TR Pk Grad: 30.00 RA Press: 3.00 RVSP: 33.00 Great Vessels Aorta Sinus of Valsalva: 3.32 2.0-3.[address] [place]: 2.40 1.7-3.4 cm Ao Asc: 3.60 2.1-3.4 cm Updated in Other Vendor System with Status of Final Johann Marquez MD electronically signed on 06/27/2023 12:08:55 PM with status of Final
[2023-06-25 08:18] LABS: Basophils Absolute Auto 0.1 X10*3/uL (0.0-0.2); Basophils Percent Auto 1.1 % (0-2); Eosinophils Absolute Auto 0.2 X10*3/uL (0.0-0.4); Eosinophils Percent Auto 4.1 % (0-4); Hematocrit 43.9 % (37.0-47.0); Imm Gran Abs Auto 0.01 X10*3/uL (0.00-0.03); Imm Gran Pct Auto 0.2 % (0.0-0.4); Lymphocytes Absolute Auto 1.4 X10*3/uL (1.2-4.9); Mean Corpuscular HGB Conc 34.2 g/dl (31.0-35.0); Mean Corpuscular Hemoglobin 30.8 pg (27.0-33.0); Mean Corpuscular Volume 90.1 fL (80.0-98.0); Monocytes Absolute Auto 0.5 X10*3/uL (0.1-1.2); Monocytes Percent Auto 8.5 % (2-11); Neutrophils Absolute Auto 3.3 x10*3/uL (2.0-8.3); Neutrophils Percent Auto 61.1 % (45-73); Platelet Count 251 X10*3/uL (160-400); Red Blood Count 4.87 X10*6/uL (4.20-5.50); Red Cell Distribution Width 12.2 % (11.0-16.0); White Blood Count 5.4 X10*3/uL (4.8-10.8)
[2023-06-25 08:21] LABS: Estimated Average Glucose 120 mg/dL; Hemoglobin A1C 150.3247 umol/L; Hemoglobin A1c % 5.8 % (<6.0)
[2023-06-25 08:40] LABS: Alanine Aminotransferase 30 U/L (0-31); Albumin Level 4.1 g/dL (3.5-5.0); Alkaline Phosphatase 69 U/L (39-117); Anion Gap 10 (12-20); Aspartate Amino Transferase 21 U/L (5-31); Bilirubin Total 0.7 mg/dL (0.0-1.0); Blood Urea Nitrogen 15 mg/dL (9-16); Calcium 9.3 mg/dL (8.4-10.2); Carbon Dioxide 28 mmol/L (22-29); Chloride 108 mmol/L (96-108); Cholesterol 141 mg/dL (<200); Estimated Glomerular Filt Rate > 60; Glucose Random 111 mg/dL (60-115); HDL Cholesterol 47 mg/dL (>40); LDL Cholesterol Calculated 75 mg/dL (<100); Potassium 3.9 mmol/L (3.3-5.1); Sodium 142 mmol/L (135-145); Total Protein 6.9 g/dL (6.5-8.0); Triglycerides 95 mg/dL (<150)
[2023-06-25 09:01] LABS: Free T4 (Free Thyroxine) 1.01 ng/dL (0.71-1.85); Thyroid Stimulating Hormone 1.05 uIU/mL (0.32-4.0)
[2023-06-25 09:04] LABS: Folate 13.9 ng/mL (> or = 4.0); Vitamin B12 842 pg/mL (200-900)
== END ==
LOC: HO.CARD 07:30
PROVIDERS: PCP Internal Medicine; Visit Provider Internal Medicine Cardiovascular Disease
DX: I25.10 Atherosclerotic heart disease of native coronary artery without angina pectoris (principal); E78.00 Pure hypercholesterolemia, unspecified; R73.02 Impaired glucose tolerance (oral)
CPT/HCPCS: 36415; 80053; 80061; 82607; 82746; 83036; 84439; 84443; 85025; 93306; Q9957

== ENCOUNTER → 2023-06-25 07:45 | Outpatient (BNV) | payer MEDICARE, SELFPAY | PROVIDERS: PCP Internal Medicine; Visit Provider Internal Medicine | DX: I25.10 Atherosclerotic heart disease of native coronary artery without angina pectoris (principal); I36.1 Nonrheumatic tricuspid (valve) insufficiency | CPT/HCPCS: 93306 ==

== ENCOUNTER → 2023-06-26 07:41 | Outpatient (REF) | payer MEDICARE, SELFPAY ==
--- NOTE | ~2023-06-26 | NM_ITS ---
EXERCISE MYOCARDIAL PERFUSION STUDY INDICATION: Coronary artery disease, assess for ischemia TECHNIQUE: The patient was brought in for an exercise perfusion study on 06/26/2023. Patient performed exercise as per Deon protocol and was injected 25 mCi of sestamibi once target heart rate was achieved. Images were obtained using the SPECT gamma camera interlaced with the gating device. Images were obtained in supine position. Resting perfusion study was performed on 06/27/2023. Patient was administered 25 mCi of sestamibi intravenously at rest. Images were then obtained in supine position. Images were processed with the software and compared side to side in short axis, horizontal long axis and vertical long axis views. Total DLP 106mGy-cm. FINDINGS: Raw images were reviewed. The stress perfusion study showed diminished tracer uptake in the septum, most prominent in the basal to mid sections. There is improvement with CT attenuation correction, but not completely. The gated study shows normal LV systolic function with calculated LVEF of 59%. LV cavity is normal in size. The gated study shows lack of thickening in the septum. Resting study shows diminished tracer uptake in the basal to mid septum. There is improvement with CT attenuation correction and hence could've components of attenuation artifact. Gating at rest reveals ejection fraction at 57%. Basal to mid septum with contracted abnormality. The findings are consistent with basal to mid septum with mixed fixed/some reversible components. NM/NM cardiolite stress test IMPRESSION: 1. Myocardial perfusion imaging study shows mixed ischemia/infarct pattern in the septum, basal to mid portions. 2. Gated LVEF is 59% during stress and 57% during rest. 3. Transient ischemic dilatation not present. EKG component of the test reported separately.
--- NOTE | 2023-06-26 07:45 | CA_ITS ---
Acquisition Time: 2023-06-26 08:40:04 Total Exercise Time: 00:07:31 Test Indications: CP Medications: SEE H Protocol: BOLIVAR Max HR: 130 BPM 86% of Pred: 150 BPM Max BP: 300/070 mmHG Max Work Load: 9.3 METS Exercise stress test exercise 7 min 31 sec of Bolivar protocol achieving 88% MPHR, without anginal symptoms, with PVCs, with normotensive response to exercise, without EKG changes. Nuclear images pending, Test reviewed with Dr. Marquez. Referred By: Tello Salazar Overread By: Cherelle Myers
== END ==
LOC: HO.CARD 07:41
PROVIDERS: PCP Internal Medicine; Visit Provider Internal Medicine Cardiovascular Disease
DX: R07.9 Chest pain, unspecified (principal); I25.10 Atherosclerotic heart disease of native coronary artery without angina pectoris
CPT/HCPCS: 78452; 93017; A9500

== ENCOUNTER → 2023-06-26 07:45 | Outpatient (BNV) | payer MEDICARE, SELFPAY | PROVIDERS: PCP Internal Medicine; Visit Provider Nurse Practitioner | DX: I25.10 Atherosclerotic heart disease of native coronary artery without angina pectoris (principal) | CPT/HCPCS: 78452; 93016; 93018 ==

== ENCOUNTER 2023-07-15 13:07 | Outpatient (AMB) | payer MEDICARE, SELFPAY ==
[2023-07-15 13:32] VITALS: BP 116/70; PULSE 94; BMI 31.7
--- NOTE | 2023-07-15 13:32 | MHC.OFFVIS ---
Intake Vital Signs 07/15/23 13:32 Height 5 ft 3 in Weight 179 lb 0.246 oz BMI 31.7 BP 116/70 Blood Pressure Location Lt brachial Position Sitting Pulse 94 Pulse Source Pulse Oximeter Intake Visit Reasons: 2 month follow up Intake Note: pt is here for 2 month follow up Solution Consultant Required: No Allergies venom-honey bee Allergy (Intermediate, Verified 07/15/23 13:36) swelling sulfamethoxazole [From Bactrim] Adverse Reaction (Intermediate, Verified 04/09/23 08:51) nausea trimethoprim [From Bactrim] Adverse Reaction (Intermediate, Verified 04/09/23 08:51) nausea estradiol [From Vagifem] Adverse Reaction (Unknown, Verified 04/09/23 08:51) rash Medication List - Last Reconciled 07/15/23 by Tello Salazar MD aspirin (Ecotrin Low Strength) 81 mg PO DAILY atorvastatin 20 mg PO BEDTIME cholecalciferol (vitamin D3) 50 mcg PO DAILY cyanocobalamin (vitamin B-12) 1,000 mcg PO DAILY isosorbide mononitrate ER 30 mg PO DAILY levothyroxine 88 mcg PO QAM metoprolol succinate ER (Toprol XL) 50 mg PO DAILY multivitamin,[id number] (Complete Multivitamin tablet) 1 tab PO DAILY HPI HPI Comments History of Present Illness Details Amanda comes for follow-up. Since starting to dual antianginal therapy her symptoms of angina have resolved after exercise although she says she feels a lot of fatigue. She said this has increased compared to in the past she is to have symptoms fatigue. She denies any other symptoms. No lightheadedness, syncope. No prolonged palpitation irregular heartbeat. No shortness of breath, orthopnea, PND. [facility] Medical History CAD (coronary artery disease) Medicare annual wellness visit, initial Colon cancer screening Colonoscopy refused Moderate tricuspid regurgitation Hypersomnia Osteopenia Impaired glucose tolerance Graves disease Hypertension Obesity (BMI 30-39.9) Hypothyroid Surgical History Hx of colonoscopy History of eye surgery History of oral surgery History of tonsillectomy History of tubal ligation Family History Father Colon cancer Mother CAD (coronary artery disease) Myocardial infarction Paternal Aunt Myocardial infarction Sister Diabetes Hypertension Social History Housing: House Are you a primary healthcare network consultant to a significant other at home: No Do you presently have visiting nurse or other home services: No Alcohol intake: current Alcohol intake frequency: holidays/special occasions only Comment: fell in garden Patient Tobacco Use Status: Former Tobacco user Tobacco use type: Cigarette Years Smoked: 15 years old e-Cigarette/Vaping Use: Never Used Second Hand Smoke Exposure: No service: No Current occupational status: retired Cognitive needs: No Hearing needs: No Vision needs: Yes (glasses) Review of Systems Const Denies chills, Denies fatigue, Denies fever(s), Denies frequent falls, Denies weakness, Denies weight gain and Denies weight loss ENT Denies dizziness Card Denies chest pain, Denies leg edema, Denies lightheadedness, Denies palpitations, Reports dyspnea, Denies dyspnea on exertion, Denies orthopnea and Denies other (loss of consciousness) Resp Denies cough, Reports dyspnea and Denies dyspnea on exertion GI Denies hematochezia and Denies change in stool character Musc Denies abnormal gait, Denies muscle weakness, Denies numbness, Denies radiating pain into limb and Denies tingling Neuro Denies Abnormal speech present, Denies abnormal gait, Denies dizziness, Denies frequent falls, Denies numbness, Denies tingling and Denies weakness Endo Denies fatigue and Denies palpitations Physical Exam Vital Signs: Last Vital Signs Pulse 94 07/15/23 13:32 BP 116/70 07/15/23 13:32 BMI result Body Mass Index 31.7 Const General: cooperative, comfortable, no acute distress, alert, awake and Physically active Nutritional Appearance: overweight Orientation/consciousness: patient oriented x3 Limitations: no limitations HEENT Head: Yes normocephalic and Yes atraumatic Neck Neck: Yes trachea midline, Yes supple and Yes no JVD Resp Effort & Inspection: normal respiratory effort Auscultation: clear to auscultation bilaterally Cardio Jugular venous distension: no JVD Palpation: normal PMI Rate: regular rate Rhythm: regular rhythm Heart sounds: S1 normal heart sound present, S2 normal heart sound present, no click, no gallops, no murmurs and no rubs GI Auscultation: normal bowel sounds Skin General skin exam: no rashes or lesions noted Neuro General: patient oriented x3 and no focal motor deficits Speech: No Abnormal speech present Extrem General: Yes no clubbing, cyanosis or edema Assessment & Plan Assessment & Plan (1) CAD (coronary artery disease): Code(s): I25.10 - Atherosclerotic heart disease of [place] coronary artery without angina pectoris Plan: CAD with hemodynamically significant stenosis in the LAD by FFR. Stable CAD. Patient is having adverse effects to high metoprolol therapy. Will reduce metoprolol to 25 mg daily to see if this will continue to resolve her issues of angina. Continue isosorbide therapy. Management of chronic CAD was discussed. Continue low-dose aspirin therapy. Will further uptitrate statin therapy to atorvastatin 40 mg daily to target goal LDL less than 60 mg/dL. Follow-up lipid panel in 3 months time. Follow up in the clinic in 3 months time. (2) Preoperative cardiovascular examination: Code(s): Z01.810 - Encounter for preprocedural cardiovascular examination Plan: Preoperative cardiovascular risk stratification for colonoscopy which is considered low risk procedure. She is stable coronary artery disease withdrawal symptoms of angina. Continue dual antianginal therapy in the perioperative time. Continue statin therapy as well. Aspirin can be withheld for 5-7 days prior to the procedure. She is currently optimized to undergo the procedure with low to intermediate risk for perioperative cardiovascular morbidity mortality. Will follow up in the clinic in 3 months time, sooner p.r.n.. Thank you for allowing me to partake in her care Orders: Orders Lipid Panel 3 Months I25.10 - Atherosclerotic heart disease of [place] coronary artery without angina pectoris Medications: New atorvastatin 40 mg PO DAILY 30 tabs 5RF Changed From metoprolol succinate ER (Toprol XL) 50 mg PO DAILY 90 tabs 1RF To metoprolol succinate ER (Toprol XL) 25 mg (1/2 x 50 mg) PO DAILY 90 tabs 1RF Discontinued atorvastatin Discontinued Reason: Doctor's Order 20 mg PO BEDTIME 30 tabs 11RF Coding Level of Care Code Est Pt Level 4 (04898) Diagnoses CAD (coronary artery disease) I25.10 Preoperative cardiovascular examination Z01.810
== END 2023-07-15 14:02 | disposition home or self-care (01) ==
PROVIDERS: PCP Internal Medicine; Visit Provider Internal Medicine Cardiovascular Disease
DX: I25.10 Atherosclerotic heart disease of native coronary artery without angina pectoris (principal); Z01.810 Encounter for preprocedural cardiovascular examination
CPT/HCPCS: 99214

== ENCOUNTER → 2023-07-15 13:07 | Outpatient (BNVA) | payer MEDICARE, SELFPAY | PROVIDERS: PCP Internal Medicine; Visit Provider Internal Medicine Cardiovascular Disease | DX: Z01.810 Encounter for preprocedural cardiovascular examination (principal); I25.10 Atherosclerotic heart disease of native coronary artery without angina pectoris | CPT/HCPCS: 99212 ==

== ENCOUNTER 2023-07-16 08:22 | Outpatient (AMB) | payer MEDICARE, SELFPAY ==
[2023-07-16 08:33] VITALS: BP 120/72; PULSE 56; O2SAT 96; BMI 31.2
--- NOTE | 2023-07-16 08:33 | A.OFFPC_ITS ---
Vital Signs 07/16/23 08:33 Height 5 ft 3 in Weight 176 lb 0.8 oz BMI 31.2 BP 120/72 Blood Pressure Location Lt brachial Position Sitting Pulse 56 Pulse Source Pulse Oximeter Pulse Oximetry (%) 96 Oxygen Delivery Method Room Air Intake Visit Reasons: IGT, HTN, hypothyroid Principal Librarian Required: No Allergies venom-honey bee Allergy (Intermediate, Verified 07/16/23 08:34) swelling sulfamethoxazole [From Bactrim] Adverse Reaction (Intermediate, Verified 07/16/23 08:34) nausea trimethoprim [From Bactrim] Adverse Reaction (Intermediate, Verified 07/16/23 08:34) nausea estradiol [From Vagifem] Adverse Reaction (Unknown, Verified 07/16/23 08:34) rash Tobacco use date assessed: 07/16/23 Fall risk assessment: No Falls in past year Last assessed Fall Risk: 07/16/23 Dental Screening Dental Screen Date: 07/16/23 HPI IGT, HTN, hypothyroid HPI Details 68-year-old obese female with hypothyroi dism hypertension impaired glucose tolerance last seen in March 2023. Patient had a positive Cologuard testing and was referred for colonoscopy had chest pain and workup was requested. Patient has met with Cardiology : Stress test myocardial perfusion:Myocardial perfusion imaging study shows mixed ischemia/infarct pattern in the septum, basal to mid portions. 2. Gated LVEF is 59% during stress and 57% during rest. 3. Transient ischemic dilatation not pre sent. Echocardiogram June 2023:The left ventricular systolic function is normal. The calculated ejection fraction is 59% by biplane method. - No obvious valvular pathology seen on this study. CTA April 2023 moderate stenosis proximal LAD due to a short segment of noncalcified plaque there is also mild stenosis of the ostium of the LAD due to calcified plaque as well as minimal stenosis 1-24% in the mid LAD due to segment long segment of noncalcified plaque there is minimal stenosis in the RCA due to a short segment of mixed plaque scattered mixed atherosclerotic plaques throughout the visualized portion of the descending thoracic aorta dilated main pulmonary artery 3 cm pulmonary arterial hypertension and or obstructive sleep apnea in June 2023 CAD with hemodynamically significant stenosis in the LAD on metoprolol and isosorbide aspirin and aggressive lowering of cholesterol continue dual antianginal therapy had preoperative clearance for colonoscopy. finds tired all the time. [facility] Medical History (Updated 07/16/23 @ 08:52 by Zainab Bernal MD) CAD (coronary artery disease) Medicare annual wellness visit, initial Colon cancer screening Colonoscopy refused Moderate tricuspid regurgitation Hypersomnia Osteopenia Impaired glucose tolerance Graves disease Hypertension Obesity (BMI 30-39.9) Hypothyroid Surgical History Hx of colonoscopy History of eye surgery History of oral surgery History of tonsillectomy History of tubal ligation Family History Father Colon cancer Mother CAD (coronary artery disease) Myocardial infarction Paternal Aunt Myocardial infarction Sister Diabetes Hypertension Social History Housing: House Are you a primary point of care technician to a significant other at home: No Do you presently have visiting nurse or other home services: No Alcohol intake: current Alcohol intake frequency: holidays/special occasions only Comment: fell in garden Patient Tobacco Use Status: Former Tobacco user Tobacco use type: Cigarette Years Smoked: 15 years old e-Cigarette/Vaping Use: Never Used Second Hand Smoke Exposure: No service: No Current occupational status: retired Cognitive needs: No Hearing needs: No Vision needs: Yes (glasses) Questionnaire Thrive Questionnaire Date Thrive assessed: 07/03/22 AUDIT C Alcohol Use Questionnaire (AUDIT-C) 1. How often do you have a drink containing alcohol?: Monthly or less 2. How many drinks containing alcohol do you have on a typical day when you are drinking?: 1 or 2 3. How often do you have six or more drinks on one occasion?: Never Total Score: 1 Score Reviewed/Action Taken: No MOHAMUD-7 AMB Questionnaire MOHAMUD-7 Date MOHAMUD - 7 assessed: 07/03/22 Source: Developed by Drs. Edvin Phillip, Yamilet Rivera, Micky Deng and colleagues, with an educational radha from [employer]. Physical exam (Primary Care) Vital Signs: Last Vital Signs Pulse 56 07/16/23 08:33 BP 120/72 07/16/23 08:33 Pulse Ox 96 07/16/23 08:33 Oxygen Delivery Method Room Air 07/16/23 08:33 BMI result Body Mass Index 31.2 Tobacco/Smoking Status: Tobacco use Status Tobacco use date assessed 07/16/23 07/16/23 08:34 Patient Tobacco Use Status Former Tobacco user 07/16/23 08:34 Tobacco use type Cigarette 07/16/23 08:34 e-Cigarette/Vaping Use Never Used 07/16/23 08:34 Thrive Assessment: Date of Thrive Assessment Date Thrive assessed 07/03/22 07/16/23 08:34 Const General: alert; No acute distress Eyes Conjunctivae: conjunctivae normal Resp Auscultation: clear to auscultation bilaterally Cardio Rate: regular rate Rhythm: regular rhythm GI Inspection: Yes normal to inspection Extrem General: Yes normal to inspection and No edema Assessment and Plan Assessment & Plan (1) CAD (coronary artery disease): Comment: CTA April 2023 Code(s): I25.10 - Atherosclerotic heart disease of [place] coronary artery without angina pectoris Plan: Control the cholesterol, weight, blood pressure continue with aspirin 81 mg once a day and placed on isosorbide mononitrate 30 mg once a day (2) Hypertension: Code(s): I10 - Essential (primary) hypertension Qualifiers: Hypertension type: essential hypertension Qualified Code(s): I10 - Essential (primary) hypertension Plan: Continue with blood pressure medication. Decrease salt intake and exercise presently on metoprolol 25 mg once a day (3) Obesity (BMI 30-39.9): Code(s): E66.9 - Obesity, unspecified Plan: Diet and exercise (4) Hypothyroid: Code(s): E03.9 - Hypothyroidism, unspecified Qualifiers: Hypothyroidism type: acquired Qualified Code(s): E03.9 - Hypothyroidism, unspecified Plan: Continue with thyroid medication (5) Impaired glucose tolerance: Code(s): R73.02 - Impaired glucose tolerance (oral) Plan: Decrease the amount of carbohydrate intake, pasta, bread, rice and potatoes are all sugar and that is aside from all the sweet stuff, remember that fruits are good but they are Sweet also. (6) Positive colorectal cancer screening using Cologuard test: Code(s): R19.5 - Other fecal abnormalities Plan: Patient has met with Cardiology low to intermediate risk for any cardiac complication and has been advised to stop aspirin 1 week before the procedure/colonoscopy (7) Hypercholesterolemia: Code(s): E78.00 - Pure hypercholesterolemia, unspecified Plan: Avoid fried foods, chicken skin, eggs, butter margarine, pastries and meat. Be it pork or beef they have a lot of cholesterol LDL goal of less than 60 atorvastatin increased to 40 mg once a day (8) Hypersomnia: Code(s): G47.10 - Hypersomnia, unspecified Orders: Orders RT home sleep study Today G47.10 - Hypersomnia, unspecified Coding Level of Care Code Est Pt Level 4 (24812) Diagnoses CAD (coronary artery disease) I25.10 Essential hypertension I10 Hypertension type: essential hypertension Obesity (BMI 30-39.9) E66.9 Acquired hypothyroidism E03.9 Hypothyroidism type: acquired Impaired glucose tolerance R73.02 Positive colorectal cancer screening using Cologuard test R19.5 Hypercholesterolemia E78.00 Hypersomnia G47.10
== END 2023-07-16 09:15 | disposition home or self-care (01) ==
PROVIDERS: PCP Internal Medicine; Visit Provider Internal Medicine
DX: I25.10 Atherosclerotic heart disease of native coronary artery without angina pectoris (principal); I10 Essential (primary) hypertension; E66.9 Obesity, unspecified; Z68.31 Body mass index [BMI] 31.0-31.9, adult; E03.9 Hypothyroidism, unspecified; R73.02 Impaired glucose tolerance (oral); R19.5 Other fecal abnormalities; E78.00 Pure hypercholesterolemia, unspecified; G47.10 Hypersomnia, unspecified
CPT/HCPCS: 99214

== ENCOUNTER 2023-08-20 08:16 | Outpatient (REF) | payer MEDICARE, SELFPAY | END 2023-08-20 08:17 | disposition home or self-care (01) | LOC: HO.MAMMO 08:16 | PROVIDERS: PCP Internal Medicine; Visit Provider Internal Medicine | DX: Z12.31 Encounter for screening mammogram for malignant neoplasm of breast (principal) | CPT/HCPCS: 77063; 77067 ==

== ENCOUNTER → 2023-08-20 08:30 | Outpatient (BNV) | payer MEDICARE, SELFPAY | PROVIDERS: PCP Internal Medicine; Visit Provider Radiology Diagnostic Radiology | DX: Z12.31 Encounter for screening mammogram for malignant neoplasm of breast (principal) | CPT/HCPCS: 77063; 77067 ==

== ENCOUNTER → 2023-08-22 09:48 | Outpatient (REF) | payer MEDICARE, SELFPAY | LOC: HO.SL 09:48 | PROVIDERS: PCP Internal Medicine; Visit Provider Internal Medicine | DX: G47.33 Obstructive sleep apnea (adult) (pediatric) (principal); G47.10 Hypersomnia, unspecified | CPT/HCPCS: 95806 ==

== ENCOUNTER → 2023-08-22 10:00 | Outpatient (BNV) | payer MEDICARE, SELFPAY | PROVIDERS: PCP Internal Medicine; Visit Provider Internal Medicine | DX: G47.33 Obstructive sleep apnea (adult) (pediatric) (principal) | CPT/HCPCS: 95806 ==

== ENCOUNTER 2023-09-17 07:15 | Day surgery (SDC) | payer MEDICARE, SELFPAY ==
--- NOTE | 2023-09-16 08:47 | P.CONAN_ITS ---
Documented by User: Janis Rivera NP 09/16/23 08:50 HPI - Anesthesia Eval Consult details Narrative: 68yo F for Colonoscopy Cx'd DOS 12/2022 for EKG changes. Subsequent cardiac w/u shows stable CAD. Last cardiac office visit 06/2023, optimized for colo PMFSH Active Problems Active Problems: All Active Problems Hypercholesterolemia (Acute) CAD (coronary artery disease) (Acute) Chest pain (Acute) EKG abnormality (Acute) Adult general medical exam (Acute) Photosensitive contact dermatitis (Acute) Low back pain (Acute) Knee pain (Acute) Foot pain, bilateral (Acute) Palpitations (Acute) Osteopenia (Acute) Positive colorectal cancer screening using Cologuard test (Acute) Vitamin B 12 deficiency (Acute) Moderate tricuspid regurgitation (Acute) Hypersomnia (Acute) Osteopenia (Acute) Impaired glucose tolerance (Acute) Hypertension (Acute) Obesity (BMI 30-39.9) (Acute) Hypothyroid (Acute) Past Medical History Medical History CAD (coronary artery disease) Medicare annual wellness visit, initial Colon cancer screening Colonoscopy refused Moderate tricuspid regurgitation Hypersomnia Osteopenia Impaired glucose tolerance Graves disease Hypertension Obesity (BMI 30-39.9) Hypothyroid Family History Family History Father Colon cancer Mother CAD (coronary artery disease) Myocardial infarction Paternal Aunt Myocardial infarction Sister Diabetes Hypertension Family history of problems with anesthesia: No Surgical History Surgical History Hx of colonoscopy History of eye surgery History of oral surgery History of tonsillectomy History of tubal ligation History of Problems with Anesthesia: No Social History Social History Housing: House Are you a primary vp care management to a significant other at home: No Do you presently have visiting nurse or other home services: No Alcohol intake: current Alcohol intake frequency: holidays/special occasions only Comment: fell in garden Patient Tobacco Use Status: Former Tobacco user Tobacco use type: Cigarette Years Smoked: 15 years old e-Cigarette/Vaping Use: Never Used Second Hand Smoke Exposure: No Use of substances other than those prescribed or required for medical reasons: No Are you DNR?: No Advance Directives: No Advance Directives Information Provided: Yes service: No Current occupational status: retired Cognitive needs: No Hearing needs: No Vision needs: Yes (glasses) Meds Allergies Allergy/AdvReac Type Severity Reaction Status Date / Time venom-honey bee Allergy Intermediate swelling Verified 07/16/23 08:34 sulfamethoxazole AdvReac Intermediate nausea Verified 07/16/23 08:34 [From Bactrim] trimethoprim [From Bactrim] AdvReac Intermediate nausea Verified 07/16/23 08:34 estradiol [From Vagifem] AdvReac Unknown rash Verified 07/16/23 08:34 Home Medications ?Medication ?Instructions ?Recorded ?Confirmed ?Last Taken ?Type cholecalciferol (vitamin D3) 50 50 mcg PO DAILY 03/01/20 09/17/23 Unknown History mcg (2,000 unit) capsule multivitamin,[id number] 1 tab PO DAILY 03/01/20 09/17/23 Unknown History (Complete Multivitamin tablet) Exam Pertinent Lab Results Pertinent Lab Results: Laboratory Tests 06/25/23 07:43 WBC 5.4 Hgb 15.0 Hct 43.9 Plt Count 251 Sodium 142 Potassium 3.9 Chloride 108 Carbon Dioxide 28 BUN 15 Creatinine 0.82 Narrative Narrative: ECHO 06/2023 Conclusions: - The left ventricular systolic function is normal. The calculated ejection fraction is 59% by biplane method. - No obvious valvular pathology seen on this study. NM cardiolite stress test 06/2023 IMPRESSION: 1. Myocardial perfusion imaging study shows mixed ischemia/infarct pattern in the septum, basal to mid portions. 2. Gated LVEF is 59% during stress and 57% during rest. 3. Transient ischemic dilatation not present. EKG component of the test reported separately. EKG 12/2022 Vent. Rate : 065 BPM Atrial Rate : 065 BPM P-R Int : 168 ms QRS Dur : 086 ms QT Int : 418 ms P-R-T Axes : 016 -17 -71 degrees QTc Int : 434 ms Normal sinus rhythm Minimal voltage criteria for LVH, may be normal variant ( R in aVL ) ST & T wave abnormality, consider inferior ischemia ST & T wave abnormality, consider anterolateral ischemia Abnormal ECG When compared with ECG of 15-FEB-2020 09:06, T wave inversion now evident in Anterior leads Assessment and Plan Assessment Anesthesia Assessment: Chart Reviewed Final Anesthetic Review Family History of Problems with Anesthesia: No History of Problems with Anesthesia: No Documented by User: Umm Kitchen MD 09/17/23 09:17 PMFSH Past Medical History Medical History CAD (coronary artery disease) Medicare annual wellness visit, initial Colon cancer screening Colonoscopy refused Moderate tricuspid regurgitation Hypersomnia Osteopenia Impaired glucose tolerance Graves disease Hypertension Obesity (BMI 30-39.9) Hypothyroid Family History Family History Father Colon cancer Mother CAD (coronary artery disease) Myocardial infarction Paternal Aunt Myocardial infarction Sister Diabetes Hypertension Surgical History Surgical History Hx of colonoscopy History of eye surgery History of oral surgery History of tonsillectomy History of tubal ligation Social History Social History Housing: House Are you a primary vp care management to a significant other at home: No Do you presently have visiting nurse or other home services: No Alcohol intake: current Alcohol intake frequency: holidays/special occasions only Comment: fell in garden Patient Tobacco Use Status: Former Tobacco user Tobacco use type: Cigarette Years Smoked: 15 years old e-Cigarette/Vaping Use: Never Used Second Hand Smoke Exposure: No Use of substances other than those prescribed or required for medical reasons: No Are you DNR?: No Advance Directives: No Advance Directives Information Provided: Yes service: No Current occupational status: retired Cognitive needs: No Hearing needs: No Vision needs: Yes (glasses) Meds Allergies Allergy/AdvReac Type Severity Reaction Status Date / Time venom-honey bee Allergy Intermediate swelling Verified 07/16/23 08:34 sulfamethoxazole AdvReac Intermediate nausea Verified 07/16/23 08:34 [From Bactrim] trimethoprim [From Bactrim] AdvReac Intermediate nausea Verified 07/16/23 08:34 estradiol [From Vagifem] AdvReac Unknown rash Verified 07/16/23 08:34 Home Medications ?Medication ?Instructions ?Recorded ?Confirmed ?Last Taken ?Type cholecalciferol (vitamin D3) 50 50 mcg PO DAILY 03/01/20 09/17/23 Unknown History mcg (2,000 unit) capsule multivitamin,[id number] 1 tab PO DAILY 03/01/20 09/17/23 Unknown History (Complete Multivitamin tablet) Exam Airway Mallampati Class: II TM Dist: >3cm Neck ROM: Full Loose/Missing/Broken Teeth: No Heart: RRR Lungs: CTA Assessment and Plan Assessment Anesthesia Assessment: Anesthesia Plan Discussed Final Anesthetic Review NPO: Yes ASA Class: III Final Preanesthetic Review: Meds/Allgs Chart Reviewed, Consent Obtained/Reviewed and Anes Risks/Benef Reviewed Patient Risk: Intermediate Procedure Risk: Low Anesthetic Plan Anesthetic Plan: MAC: Disposition: Standard PACU
[2023-09-17 07:53] VITALS: BMI 29.5
[2023-09-17 07:57] VITALS: BP 149/75; PULSE 66; RESP 18; TEMP 36.6; O2SAT 95
[2023-09-17] MEDS: Lactated Ringers 1,000 ML 100 ML IVCONT (08:19)
--- NOTE | 2023-09-17 08:21 | P.OP_ITS ---
Operative Note Operative Note Date of Service: 09/17/23 Narrative: Procedure: Colonoscopy Indication: + cologuard Endoscopist: Rina Velasquez MD Anesthesia Provider: Kings Ernst CRNA Anesthesia type: MAC Instrument: Olympus [id number]-[id number] Consent: Indication, risks vs benefits, and alternatives were discussed with the patient who gave written informed consent to proceed. EKG, pulse, pulse oximetry and blood pressure were monitored throughout the procedure. Please see anesthesia flowsheet. Procedure: The patient was brought to the procedure room and placed in the left lateral decubitus position. IV medications were administered by the anesthesia provider in attendance. A digital rectal exam was performed which was abnormal due to finding of ext hemorrhoids. A distal attachment cap was affixed to the tip of the scope and the colonoscope was then inserted through the anus and advanced through the colon to the cecum at 75 cm,and terminal ileum. Appendiceal orifice and ileocecal valve were identified. Mucosa was carefully examined under high definition white light as the instrument was slowly withdrawn in a retrograde panoramic fashion. Retroflexion was performed in rectum. The procedure was not difficult. There were no immediate obvious complications. The quality of the prep was BBPS: 2+3+2 = adequate Withdrawal time 11 minutes. Limitations: No limitations. Findings: Mucosa: Normal to cecum and terminal ileum. Protruding lesions: * 1 sessile polyp of size 4 mm in sigmoid colon. Cold snare polypectomy was performed. The polyp was completely removed and retrieved. * 1 sessile polyp of size 2 mm in ascending colon. Cold forceps polypectomy was performed. The polyp was completely removed and retrieved. * Medium internal hemorrhoids without stigmata of recent bleeding. Excavated lesions: * Moderate diverticulosis of left sided colon. Impression: 1. Normal colon and terminal ileum mucosa 2. Total of 2 polyps removed 3. External and internal hemorrhoids 4. Diverticulosis Recommendations: - Follow path results. - Repeat colonoscopy in 5-7 years if polyps are adenomas.
--- NOTE | 2023-09-17 08:21 | MHC.SHP ---
Pre-Procedural Eval Section A - 24 Hr Update-Section A only Date of Service: 09/17/23 Section B - Complete if H&P > 30 days Chief Complaint: Other fecal abnormalities Details of Present Illness: Colon cancer screening Colonoscopy refused Graves disease Hypersomnia Hypertension Hypothyroid Impaired glucose tolerance Medicare annual wellness visit, initial Moderate tricuspid regurgitation Obesity (BMI 30-39.9) Osteopenia Surgical History History of eye surgery History of oral surgery History of tonsillectomy History of tubal ligation Hx of colonoscopy Present Medications: see Short Stay Collaborative assessment Allergies: Allergies Allergy/AdvReac Type Severity Reaction Status Date / Time venom-honey bee Allergy Intermediate swelling Verified 07/16/23 08:34 sulfamethoxazole AdvReac Intermediate nausea Verified 07/16/23 08:34 [From Bactrim] trimethoprim [From Bactrim] AdvReac Intermediate nausea Verified 07/16/23 08:34 estradiol [From Vagifem] AdvReac Unknown rash Verified 07/16/23 08:34 Review of Systems Review of Systems Comment: Ten point ROS negative Exam Exam Comment: Gen appear: No acute distress HEENT: no icterus Chest: No overt resp distress Abd: soft, nontender, nondistended Psych: Stable affect, answering questions appropriately Neuro: A/Ox3 noted to move all extremities spontaneously Ext: no peripheral edema Plan Diagnosis/Plan: Unchanged I have reviewed the history and physical and performed a pertinent physical examination on my patient. No changes have occurred unless specified. Time Spent With Patient Time: Total time managing care of this patient today ____ minutes.
[2023-09-17 09:59] VITALS: BP 105/58; PULSE 75; RESP 16; TEMP 36.6; O2SAT 100
[2023-09-17 10:14] VITALS: BP 125/87; PULSE 73; RESP 16; O2SAT 97
[2023-09-17 10:30] VITALS: TEMP 36.8
== END 2023-09-17 11:08 | disposition home or self-care (01) ==
PROVIDERS: PCP Internal Medicine; Visit Provider Internal Medicine
PROC: 0DJD8ZZ Inspection of Lower Intestinal Tract, Via Natural or Artificial Opening Endoscopic (ICD-10-PCS; CPT 45378; principal; 2023-09-17 09:10)
DX: R19.5 Other fecal abnormalities (principal); D12.2 Benign neoplasm of ascending colon; D12.5 Benign neoplasm of sigmoid colon; K57.30 Diverticulosis of large intestine without perforation or abscess without bleeding; K64.8 Other hemorrhoids; I10 Essential (primary) hypertension
CPT/HCPCS: 45385; 45380; 88305; J2704

== ENCOUNTER → 2023-09-17 07:15 | Outpatient (BNV) | payer MEDICARE, SELFPAY | PROVIDERS: PCP Internal Medicine; Visit Provider Internal Medicine | DX: Z12.11 Encounter for screening for malignant neoplasm of colon (principal); R19.5 Other fecal abnormalities; D12.5 Benign neoplasm of sigmoid colon; D12.2 Benign neoplasm of ascending colon; K57.30 Diverticulosis of large intestine without perforation or abscess without bleeding; K64.8 Other hemorrhoids | CPT/HCPCS: 45380; 45385 ==

== ENCOUNTER → 2023-09-30 10:19 | Outpatient (BNVA) | payer MEDICARE, SELFPAY | PROVIDERS: PCP Internal Medicine; Visit Provider Internal Medicine ==

== ENCOUNTER 2023-10-07 15:32 | Outpatient (AMB) | payer MEDICARE, SELFPAY ==
[2023-10-07 15:33] VITALS: BP 138/80; PULSE 57; O2SAT 94
--- NOTE | 2023-10-07 15:33 | MHC.PC.OV ---
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 Allergies venom-honey bee Allergy (Intermediate, Verified 10/07/23 15:33) swelling sulfamethoxazole [From Bactrim] Adverse Reaction (Intermediate, Verified 10/07/23 15:33) nausea trimethoprim [From Bactrim] Adverse Reaction (Intermediate, Verified 10/07/23 15:33) nausea estradiol [From Vagifem] Adverse Reaction (Unknown, Verified 10/07/23 15:33) rash Tobacco use date assessed: 10/07/23 Fall risk assessment: No Falls in past year Last assessed Fall Risk: 10/07/23 Dental Screening Dental Screen Date: 07/16/23 HPI CAD, pulmonary HTN , Cholesterol HPI Details 68-year-old obese female with coronary artery disease hypertension hypothyroidism impaired glucose tolerance recently had a positive Cologuard test and colonoscopy was done August 2023 had tubular adenoma was advised to repeat in 5-7 years. Hypercholesterolemia last seen in June 2023. Mammogram is up-to-date bone density is up-to-date July 2022. With the hypersomnia sleep study was done 08/25/2023 mild with an AHI of 8.7 PFSH Medical History CAD (coronary artery disease) Medicare annual wellness visit, initial Colon cancer screening Colonoscopy refused Moderate tricuspid regurgitation Hypersomnia Osteopenia Impaired glucose tolerance Graves disease Hypertension Obesity (BMI 30-39.9) Hypothyroid Surgical History Hx of colonoscopy History of eye surgery History of oral surgery History of tonsillectomy History of tubal ligation Family History Father Colon cancer Mother CAD (coronary artery disease) Myocardial infarction Paternal Aunt Myocardial infarction Sister Diabetes Hypertension Social History Housing: House Are you a primary student career development specialist to a significant other at home: No Do you presently have visiting nurse or other home services: No Alcohol intake: current Alcohol intake frequency: holidays/special occasions only Comment: fell in garden Patient Tobacco Use Status: Former Tobacco user Tobacco use type: Cigarette Years Smoked: 15 years old e-Cigarette/Vaping Use: Never Used Second Hand Smoke Exposure: No service: No Current occupational status: retired Cognitive needs: No Hearing needs: No Vision needs: Yes (glasses) Questionnaire Thrive Questionnaire Date Thrive assessed: 10/07/23 I am a: Patient What is your living situation today?: I have a steady place to live Within the past 12 months, did the food you bought not last and you didn't have the money to get more?: Never true Within the past 12 months, did you worry whether your food would run out before you got money to buy more?: Never true Do you have trouble paying for medicines?: No Do you have trouble getting transportation to medical appointments?: No Do you have trouble paying your heating and electricity bill?: No Do you have trouble taking care of your child, family member or friend?: No Do you have trouble with day-to-day activities such as bathing, preparing meals, shopping, managing finances, etc.?: No Are you currently unemployed and looking for a job?: No Are you interested in more education?: No Please select the resources that you would like help with: None Currently or been in a relationship where the following occur: no concerns reported THRIVE Score: 0 AUDIT C Alcohol Use Questionnaire (AUDIT-C) 1. How often do you have a drink containing alcohol?: Monthly or less 2. How many drinks containing alcohol do you have on a typical day when you are drinking?: 1 or 2 3. How often do you have six or more drinks on one occasion?: Never Total Score: 1 Score Reviewed/Action Taken: No MOHAMUD-7 AMB Questionnaire MOHAMUD-7 Date MOHAMUD - 7 assessed: 07/03/22 Source: Developed by Drs. Edvin Phillip, Yamilet Rivera, Micky Deng and colleagues, with an educational radha from [employer]. Physical exam (Primary Care) Vital Signs: Last Vital Signs Pulse 57 10/07/23 15:33 BP 138/80 10/07/23 15:33 Pulse Ox 94 10/07/23 15:33 Oxygen Delivery Method Room Air 10/07/23 15:33 BMI result Body Mass Index 30.0 Tobacco/Smoking Status: Tobacco use Status Tobacco use date assessed 10/07/23 10/07/23 15:34 Patient Tobacco Use Status Former Tobacco user 10/07/23 15:34 Tobacco use type Cigarette 10/07/23 15:34 e-Cigarette/Vaping Use Never Used 10/07/23 15:34 Thrive Assessment: Date of Thrive Assessment Date Thrive assessed 10/07/23 10/07/23 15:34 Currently or been in a relationship where the following occur: no concerns reported Const General: alert; No acute distress Eyes Conjunctivae: conjunctivae normal Resp Auscultation: clear to auscultation bilaterally Cardio Rate: regular rate Rhythm: regular rhythm GI Inspection: Yes normal to inspection Extrem General: Yes normal to inspection and No edema Immunizations tetanus-diphtheria toxoids-Td 2 Lf unit-2 Lf unit/0.5 mL IM suspension Performing Provider: Zainab Bernal MD Performing Location: [facility] Administered by: LATISHA Banda on 10/07/23 16:24 Dose Route Admin Location Dispensed Lot Number Expiration Date NDC Legal Archivist 0.5 mL IM Left Deltoid 0.5 mL [id number] 06/29/24 [address]-9 [employer] VIS Given Date VIS Provided VIS Publication Date 10/07/23 Single Vaccine 20 Eligibility Eligibility Date Funding Source Not [facility] Eligible 10/07/23 State [facility] Assessment and Plan Assessment & Plan (1) CAD (coronary artery disease): Comment: CTA April 2023 Code(s): I25.10 - Atherosclerotic heart disease of [place] coronary artery without angina pectoris Plan: Control the cholesterol, weight, blood pressure, on aspirin 81 mg once a day (2) Tubular adenoma of colon: Comment: August 2023 for 5-7 years Code(s): D12.6 - Benign neoplasm of colon, unspecified Plan: Colonoscopy done August 2023 advised repeat in 5-7 years (3) Obesity (BMI 30-39.9): Code(s): E66.9 - Obesity, unspecified Plan: Diet and exercise (4) Hypertension: Code(s): I10 - Essential (primary) hypertension Qualifiers: Hypertension type: essential hypertension Qualified Code(s): I10 - Essential (primary) hypertension Plan: Continue with blood pressure medication. Decrease salt intake and exercise on metoprolol 25 mg once a day (5) Impaired glucose tolerance: Code(s): R73.02 - Impaired glucose tolerance (oral) Plan: Decrease the amount of carbohydrate intake, pasta, bread, rice and potatoes are all sugar and that is aside from all the sweet stuff, remember that fruits are good but they are Sweet also. (6) Tick bite: Code(s): W57.XXXA - Bitten or stung by nonvenomous insect and other nonvenomous arthropods, initial encounter (7) Frequency of micturition: Code(s): R35.0 - Frequency of micturition Orders: Orders Lyme IgG/IgM w/reflex to WB Today W57.XXXA - Bitten or stung by nonvenomous insect and other nonvenomous arthropods, initial encounter Comprehensive Met. Panel Today R73.02 - Impaired glucose tolerance (oral) Complete Blood Count Auto Diff Today E03.9 - Hypothyroidism, unspecified Thyroid Stimulating Hormone Today E03.9 - Hypothyroidism, unspecified Free T4 (Free Thyroxine) Today E03.9 - Hypothyroidism, unspecified Td State Immunization Today Z23 - Encounter for immunization Hemoglobin A1c Today R73.02 - Impaired glucose tolerance (oral) Lipid Panel Today E78.00 - Pure hypercholesterolemia, unspecified, I25.10 - Atherosclerotic heart disease of [place] coronary artery without angina pectoris AMB Urinalysis Automated Today Z13.9 - Encounter for screening, unspecified Coding Level of Care Code Est Pt Level 4 (22503) Diagnoses CAD (coronary artery disease) I25.10 Tubular adenoma of colon D12.6 Obesity (BMI 30-39.9) E66.9 Essential hypertension I10 Hypertension type: essential hypertension Impaired glucose tolerance R73.02 Tick bite W57.XXXA Frequency of micturition R35.0
== END 2023-10-07 16:44 | disposition home or self-care (01) ==
PROVIDERS: PCP Internal Medicine; Visit Provider Internal Medicine
DX: I10 Essential (primary) hypertension (principal); R73.02 Impaired glucose tolerance (oral)
CPT/HCPCS: 81003; 90471; 90714; 99214

== ENCOUNTER 2023-10-17 09:08 | Outpatient (REF) | payer MEDICARE, SELFPAY ==
[2023-10-17 11:18] LABS: Cholesterol 111 mg/dL (<200); HDL Cholesterol 46 mg/dL (>40); LDL Cholesterol Calculated 52 mg/dL (<100); Triglycerides 66 mg/dL (<150)
== END 2023-10-17 09:09 | disposition home or self-care (01) ==
LOC: HO.LAB 09:08
PROVIDERS: PCP Internal Medicine; Visit Provider Internal Medicine Cardiovascular Disease
DX: I25.10 Atherosclerotic heart disease of native coronary artery without angina pectoris (principal)
CPT/HCPCS: 36415; 80061

== ENCOUNTER 2023-10-24 12:43 | Outpatient (AMB) | payer MEDICARE, SELFPAY ==
[2023-10-24 12:55] VITALS: BP 130/80; PULSE 60; BMI 29.5
--- NOTE | 2023-10-24 12:55 | MHC.OFFVIS ---
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 Allergies venom-honey bee Allergy (Intermediate, Verified 10/07/23 15:33) swelling sulfamethoxazole [From Bactrim] Adverse Reaction (Intermediate, Verified 10/07/23 15:33) nausea trimethoprim [From Bactrim] Adverse Reaction (Intermediate, Verified 10/07/23 15:33) nausea estradiol [From Vagifem] Adverse Reaction (Unknown, Verified 10/07/23 15:33) rash Medication List - Last Reconciled 10/24/23 by Tello Salazar MD aspirin (Ecotrin Low Strength) 81 mg PO DAILY atorvastatin 40 mg PO DAILY cholecalciferol (vitamin D3) 50 mcg PO DAILY cyanocobalamin (vitamin B-12) 1,000 mcg PO DAILY isosorbide mononitrate ER 30 mg PO DAILY levothyroxine 88 mcg PO QAM metoprolol succinate ER (Toprol XL) 25 mg (1/2 x 50 mg) PO DAILY multivitamin,[id number]-[id number]-pddgxojy (Complete Multivitamin tablet) 1 tab PO DAILY HPI Comments Details: Amanda Comes for follow-up. She has been doing very well from cardiac perspective. No new cardiac symptoms to report. Denies any anginal symptoms at current workload. Takes all her medications. LDL is not extremely well optimized on current regimen. Her fatigue symptoms have improved with lowering of metoprolol dose. She underwent colonoscopy without any incidence. No heart failure symptoms. No prolonged palpitations, irregular heartbeat, PFSH Medical History CAD (coronary artery disease) Medicare annual wellness visit, initial Colon cancer screening Colonoscopy refused Moderate tricuspid regurgitation Hypersomnia Osteopenia Impaired glucose tolerance Graves disease Hypertension Obesity (BMI 30-39.9) Hypothyroid Surgical History Hx of colonoscopy History of eye surgery History of oral surgery History of tonsillectomy History of tubal ligation Family History Father Colon cancer Mother CAD (coronary artery disease) Myocardial infarction Paternal Aunt Myocardial infarction Sister Diabetes Hypertension Social History Housing: House Are you a primary care advocate to a significant other at home: No Do you presently have visiting nurse or other home services: No Alcohol intake: current Alcohol intake frequency: holidays/special occasions only Comment: fell in garden Patient Tobacco Use Status: Former Tobacco user Tobacco use type: Cigarette Years Smoked: 15 years old e-Cigarette/Vaping Use: Never Used Second Hand Smoke Exposure: No service: No Current occupational status: retired Cognitive needs: No Hearing needs: No Vision needs: Yes (glasses) Review of Systems Const Denies chills, Denies fatigue, Denies fever(s), Denies frequent falls, Denies weakness, Denies weight gain and Denies weight loss ENT Denies dizziness Card Denies chest pain, Denies leg edema, Denies lightheadedness, Denies palpitations, Denies dyspnea, Denies dyspnea on exertion, Denies orthopnea and Denies other (loss of consciousness) Resp Denies cough, Denies dyspnea and Denies dyspnea on exertion GI Denies hematochezia and Denies change in stool character Musc Denies abnormal gait, Denies muscle weakness, Denies numbness, Denies radiating pain into limb and Denies tingling Neuro Denies Abnormal speech present, Denies abnormal gait, Denies dizziness, Denies frequent falls, Denies numbness, Denies tingling and Denies weakness Endo Denies fatigue and Denies palpitations Physical Exam Vital Signs: Last Vital Signs Pulse 60 10/24/23 12:55 BP 130/80 10/24/23 12:55 BMI result Body Mass Index 29.5 Const General: cooperative, comfortable, no acute distress, alert, awake and Physically active Nutritional Appearance: overweight Orientation/consciousness: patient oriented x3 Limitations: no limitations HEENT Head: Yes normocephalic and Yes atraumatic Neck Neck: Yes trachea midline, Yes supple and Yes no JVD Resp Effort & Inspection: normal respiratory effort Auscultation: clear to auscultation bilaterally Cardio Jugular venous distension: no JVD Palpation: normal PMI Rate: regular rate Rhythm: regular rhythm Heart sounds: S1 normal heart sound present, S2 normal heart sound present, no click, no gallops, Murmur heart sound present systolic early and no rubs GI Auscultation: normal bowel sounds Skin General skin exam: no rashes or lesions noted Neuro General: patient oriented x3 and no focal motor deficits Speech: No Abnormal speech present Extrem General: Yes no clubbing, cyanosis or edema Assessment & Plan Assessment & Plan (1) CAD (coronary artery disease): Comment: CTA April 2023 Code(s): I25.10 - Atherosclerotic heart disease of [place] coronary artery without angina pectoris Category: Medical Plan: Coronary artery disease which is stable at this point time with no symptoms of angina at current workload on dual antianginal therapy. Importance of continued aggressive medical therapy was discussed. She is encouraged to continue to participate in physical activity as tolerated. No restriction to activity daily. She is advised to call me with any worsening anginal sounding chest discomfort. Continue current statin therapy. LDL is very well optimized. Pathophysiology coronary artery was discussed and management plan was discussed. (2) Hypertension: Code(s): I10 - Essential (primary) hypertension Category: Medical Qualifiers: Hypertension type: essential hypertension Qualified Code(s): I10 - Essential (primary) hypertension Plan: Hypertension which is currently well optimized advised to monitor blood pressure at home maintain a log. Goal blood pressure less than 130/84. Advise adequate hydration low-salt diet. Continue current therapy. Will follow up in the clinic in 1 year's time, sooner p.r.n.. Thank you for allowing me to partake in the care Coding Level of Care Code Est Pt Level 4 (41296) Diagnoses CAD (coronary artery disease) I25.10 Essential hypertension I10 Hypertension type: essential hypertension
== END 2023-10-24 13:14 | disposition home or self-care (01) ==
PROVIDERS: PCP Internal Medicine; Visit Provider Internal Medicine Cardiovascular Disease
DX: I25.10 Atherosclerotic heart disease of native coronary artery without angina pectoris (principal); I10 Essential (primary) hypertension
CPT/HCPCS: 99214

== ENCOUNTER → 2023-10-24 12:43 | Outpatient (BNVA) | payer MEDICARE, SELFPAY | PROVIDERS: PCP Internal Medicine; Visit Provider Internal Medicine Cardiovascular Disease | DX: I25.10 Atherosclerotic heart disease of native coronary artery without angina pectoris (principal); I10 Essential (primary) hypertension | CPT/HCPCS: 99212 ==

== ENCOUNTER 2024-02-24 09:45 | Outpatient (AMB) | payer MEDICARE, SELFPAY ==
--- NOTE | 2024-02-24 09:54 | A.OFFPC_ITS ---
Vital Signs 02/24/24 09:56 Height 5 ft 4 in Weight 174 lb 2 oz BMI 29.9 BP 124/70 Blood Pressure Location Lt brachial Position Sitting Pulse 72 Pulse Source Pulse Oximeter Pulse Oximetry (%) 92 Oxygen Delivery Method Room Air Intake Visit Reasons: IGT, CAD Intake Note: Patient is here to follow up on IGT, CAD. Pt decline flu shot Desktop Publisher Required: No [employer] Media Mixer: Not Required per policy Accompanied by: Self / Same As Patient Allergies venom-honey bee Allergy (Intermediate, Verified 02/24/24 09:58) swelling sulfamethoxazole [From Bactrim] Adverse Reaction (Intermediate, Verified 02/24/24 09:58) nausea trimethoprim [From Bactrim] Adverse Reaction (Intermediate, Verified 02/24/24 09:58) nausea estradiol [From Vagifem] Adverse Reaction (Unknown, Verified 02/24/24 09:58) rash Tobacco use date assessed: 10/07/23 Fall risk assessment: No Falls in past year Last assessed Fall Risk: 02/24/24 Dental Screening Dental Screen Date: 07/16/23 HPI IGT, CAD HPI Details 69-year-old overweight female with coron panfilo artery disease hypertension impaired glucose tolerance last seen in September 2023. Patient's mammogram is up-to-date bone density is up-to-date colonoscopy is up-to-date in August 2023. Review of the notes has followed up with Cardiology in October 23 . 3 weeks ago - palpitations dizzy, while sitting down O2 sat 89 and on walking wound go down to 87 O2 placed [facility] Medical History CAD (coronary artery disease) Medicare annual wellness visit, initial Colon cancer screening Colonoscopy refused Moderate tricuspid regurgitation Hypersomnia Osteopenia Impaired glucose tolerance Graves disease Hypertension Obesity (BMI 30-39.9) Hypothyroid Surgical History Hx of colonoscopy History of eye surgery History of oral surgery History of tonsillectomy History of tubal ligation Family History Father Colon cancer Mother CAD (coronary artery disease) Myocardial infarction Paternal Aunt Myocardial infarction Sister Diabetes Hypertension Social History Housing: House Are you a primary director career to a significant other at home: No Do you presently have visiting nurse or other home services: No Alcohol intake: current Alcohol intake frequency: holidays/special occasions only Comment: fell in garden Patient Tobacco Use Status: Former Tobacco user Tobacco use type: Cigarette Years Smoked: 15 years old e-Cigarette/Vaping Use: Never Used Second Hand Smoke Exposure: No service: No Current occupational status: retired Cognitive needs: No Hearing needs: No Vision needs: Yes (glasses) Questionnaire PHQ-9 Over the last 2 weeks, how often have you been bothered by any of the following problems? 1. Little interest or pleasure in doing things: not at all 2. Feeling down, depressed, or hopeless: not at all 3. Trouble falling or staying asleep, or sleeping too much: not at all 4. Feeling tired or having little energy: not at all 5. Poor appetite or overeating: not at all 6. Feeling bad about yourself - or that you are a failure or have let yourself or your family down: not at all 7. Trouble concentrating on things, such as reading the newspaper or watching television: not at all 8. Moving or speaking so slowly that other people could have noticed. Or the opposite - being so fidgety or restless that you have been moving around a lot more than usual: not at all 9. Thoughts that you would be better off or of hurting yourself in some way: not at all Total score: 0 Depression Screening Interpretation: Negative Depression Screening Done: Yes Source: Developed by Drs. Edvin Phillip, Yamilet Rivera, Micky Deng and colleagues, with an educational radha from [employer]. Thrive Questionnaire Date Thrive assessed: 10/07/23 Are you currently unemployed and looking for a job?: No AUDIT C Alcohol Use Questionnaire (AUDIT-C) 3. How often do you have six or more drinks on one occasion?: Never Total Score: 0 MOHAMUD-7 AMB Questionnaire MOHAMUD-7 Date MOHAMUD - 7 assessed: 02/24/24 Feeling nervous, anxious, or on edge: 0 = Not at all Not being able to stop or control worryin = Not at all Worrying too much about different things: 0 = Not at all Trouble relaxin = Not at all Being so restless that it is hard to sit still: 0 = Not at all Becoming easily annoyed or irritable: 0 = Not at all Feeling afraid as if something awful might happen: 0 = Not at all Total MOHAMUD-7 score (0-4 normal; 5-9 mild; 10-14 moderate; 15-21 severe): 0 Source: Developed by Drs. Edvin Phillip, Yamilet Rivera, Micky Deng and colleagues, with an educational radha from [employer]. Physical exam (Primary Care) Vital Signs: Last Vital Signs Pulse 72 02/24/24 09:56 BP 124/70 02/24/24 09:56 Pulse Ox 92 02/24/24 09:56 Oxygen Delivery Method Room Air 02/24/24 09:56 BMI result Body Mass Index 29.9 Tobacco/Smoking Status: Tobacco use Status Tobacco use date assessed 10/07/23 02/24/24 09:55 Patient Tobacco Use Status Former Tobacco user 02/24/24 09:55 Tobacco use type Cigarette 02/24/24 09:55 e-Cigarette/Vaping Use Never Used 02/24/24 09:55 PHQ-9: PHQ-9 Score PHQ-9: Total score 0 02/24/24 09:55 Depression Screening Interpretation: Negative Thrive Assessment: Date of Thrive Assessment Date Thrive assessed 10/07/23 02/24/24 09:55 Const General: alert; No acute distress Eyes Conjunctivae: conjunctivae normal Resp Auscultation: clear to auscultation bilaterally Cardio Rate: regular rate Rhythm: regular rhythm GI Inspection: Yes normal to inspection Extrem General: Yes normal to inspection and No edema Results AMB Hemoglobin A1c AMB Hemoglobin A1c 6.2 % Last Edit by LATISHA Fair on 02/24/24 10:12 Results Reviewed Results Reviewed: Laboratory Last Values Hgb A1c (Clinic) 6.2 % (4.0-6.0) H 02/24/24 09:59 Coding Level of Care Code Est Pt Level 4 (42857) Diagnoses CAD (coronary artery disease) I25.10 Hypercholesterolemia E78.00 Impaired glucose tolerance R73.02 Acquired hypothyroidism E03.9 Hypothyroidism type: acquired Essential hypertension I10 Hypertension type: essential hypertension Overweight E66.3 Hypoxemia R09.02 Assessment & Plan Assessment & Plan (1) CAD (coronary artery disease): Comment: CTA April 2023 Code(s): I25.10 - Atherosclerotic heart disease of [place] coronary artery without angina pectoris Category: Medical Plan: Control the cholesterol, weight, blood pressure, continue with aspirin 81 mg once a day (2) Hypercholesterolemia: Code(s): E78.00 - Pure hypercholesterolemia, unspecified Category: Medical Plan: Avoid fried foods, chicken skin, eggs, butter margarine, pastries and meat. Be it pork or beef they have a lot of cholesterol LDL goal of less than 70 and triglyceride of less than 150. Last blood work was in September 2023 patient is on atorvastatin 40 mg once a day (3) Impaired glucose tolerance: Code(s): R73.02 - Impaired glucose tolerance (oral) Category: Medical Plan: Decrease the amount of carbohydrate intake, pasta, bread, rice and potatoes are all sugar and that is aside from all the sweet stuff, remember that fruits are good but they are Sweet also. (4) Hypothyroid: Code(s): E03.9 - Hypothyroidism, unspecified Category: Medical Qualifiers: Hypothyroidism type: acquired Qualified Code(s): E03.9 - Hypothyroidism, unspecified Plan: Continue with thyroid medication (5) Hypertension: Code(s): I10 - Essential (primary) hypertension Category: Medical Qualifiers: Hypertension type: essential hypertension Qualified Code(s): I10 - Essential (primary) hypertension Plan: Continue with blood pressure medication. Decrease salt intake and exercise takes metoprolol 25 mg half a tablet once a day isosorbide mononitrate 30 mg once a day (6) Overweight: Code(s): E66.3 - Overweight Category: Medical Plan: Diet and exercise (7) Hypoxemia: Code(s): R09.02 - Hypoxemia Category: Medical Plan: Discussed my concerns about hypoxemia . sitting on chair O2 sat, 89, walking 87 2LNC 95 and then oxygen taken off 89 will prescribe oxygen, xray chest and referral to Pulmonary, Orders: Orders Hemoglobin A1c 3 Months R73.02 - Impaired glucose tolerance (oral) XR chest 2V Today R09.02 - Hypoxemia Complete Blood Count Auto Diff Today R09.02 - Hypoxemia Free T4 (Free Thyroxine) Today R09.02 - Hypoxemia Thyroid Stimulating Hormone Today R09.02 - Hypoxemia UA CC w/rflx Micro + Cult Today R09.02 - Hypoxemia, R30.0 - Dysuria AMB Hemoglobin A1c Today R73.02 - Impaired glucose tolerance (oral) Vitamin B12 and Folate 3 Months R73.02 - Impaired glucose tolerance (oral) Vitamin D 25-OH Total 3 Months R73.02 - Impaired glucose tolerance (oral) Comprehensive Met. Panel Today R09.02 - Hypoxemia Vitamin B12 and Folate Today R09.02 - Hypoxemia Vitamin D 25-OH Total Today R09.02 - Hypoxemia Referrals Pulmonology Referral R09.02 - Hypoxemia Medications: New Oxygen Home Use As directed O2 2 L NC 1 ea 0RF R09.02 - Hypoxemia
[2024-02-24 09:56] VITALS: BP 124/70; PULSE 72; O2SAT 92; BMI 29.9
== END 2024-02-24 11:10 | disposition home or self-care (01) ==
PROVIDERS: PCP Internal Medicine; Visit Provider Internal Medicine
DX: I25.10 Atherosclerotic heart disease of native coronary artery without angina pectoris (principal); E78.00 Pure hypercholesterolemia, unspecified; R73.02 Impaired glucose tolerance (oral); E03.9 Hypothyroidism, unspecified; I10 Essential (primary) hypertension; E66.3 Overweight; R09.02 Hypoxemia

== ENCOUNTER → 2024-02-24 09:45 | Outpatient (BNVA) | payer MEDICARE, SELFPAY | PROVIDERS: PCP Internal Medicine; Visit Provider Internal Medicine | DX: I25.10 Atherosclerotic heart disease of native coronary artery without angina pectoris (principal); E78.00 Pure hypercholesterolemia, unspecified; R73.02 Impaired glucose tolerance (oral); E03.9 Hypothyroidism, unspecified; I10 Essential (primary) hypertension; E66.3 Overweight; R09.02 Hypoxemia | CPT/HCPCS: 83036; 99212 ==

== ENCOUNTER 2024-02-27 08:13 | Outpatient (REF) | payer MEDICARE, SELFPAY ==
--- NOTE | ~2024-02-27 | XR_ITS ---
EXAMINATION: XR CHEST 2 VIEWS CLINICAL INFORMATION: Hypoxemia R09.02. COMPARISON: XR Chest 07/22/2015 TECHNIQUE: 2 views of the chest were obtained. FINDINGS: No significant abnormality is noted involving the heart, lungs, mediastinum, bony thorax or soft tissues. XR/XR chest 2V IMPRESSION: Unremarkable examination. Electronically signed by: Zelalem Lovett MD 05/01/2024 09:38 AM EST
[2024-02-27 08:27] LABS: MANUAL DIFF FLAG NO
[2024-02-27 08:35] LABS: Basophils Percent Auto 0.9 % (0-2); Eosinophils Percent Auto 4.9 % (0-4); Hematocrit 43.6 % (37.0-47.0); Hemoglobin 14.7 g/dl (12.0-16.0); Imm Gran Pct Auto 0.4 % (0.0-0.4); Lymphocytes Percent Auto 22.8 % (20-40); Mean Corpuscular HGB Conc 33.7 g/dl (31.0-35.0); Mean Corpuscular Hemoglobin 31.1 pg (27.0-33.0); Mean Corpuscular Volume 92.2 fL (80.0-98.0); Mean Platelet Volume 9.8 fL (9.4-12.3); Monocytes Percent Auto 7.1 % (2-11); Neutrophils Percent Auto 63.9 % (45-73); Platelet Count 240 X10*3/uL (160-400); Red Blood Count 4.73 X10*6/uL (4.20-5.50); Red Cell Distribution Width 12.5 % (11.0-16.0); White Blood Count 5.7 X10*3/uL (4.8-10.8)
[2024-02-27 08:36] LABS: Basophils Absolute Auto 0.1 X10*3/uL (0.0-0.2); Eosinophils Absolute Auto 0.3 X10*3/uL (0.0-0.4); Imm Gran Abs Auto 0.02 X10*3/uL (0.00-0.03); Lymphocytes Absolute Auto 1.3 X10*3/uL (1.2-4.9); Monocytes Absolute Auto 0.4 X10*3/uL (0.1-1.2); Neutrophils Absolute Auto 3.6 x10*3/uL (2.0-8.3)
[2024-02-27 09:05] LABS: Estimated Average Glucose 126 mg/dL; Hemoglobin A1C 159.7874 umol/L
[2024-02-27 09:33] LABS: Appearance Urine Clear; Color Urine Yellow; Glucose Urine UA Negative (Negative); Leukocyte Esterase Urine Small (1+) (Negative); Nitrite Urine Negative (Negative); UMIC TRIGGER UACC YES; Urine Blood Trace (Negative); Urine Ketones Negative (Negative); Urine Protein Negative (Neg-Trace)
[2024-02-27 09:34] LABS: Free T4 (Free Thyroxine) 1.08 ng/dL (0.71-1.85); Vitamin D 25-OH Total 59.3 ng/mL (>30)
[2024-02-27 09:38] LABS: Anion Gap 9 (12-20)
[2024-02-27 09:42] LABS: Alanine Aminotransferase 25 U/L (0-31); Albumin Level 4.1 g/dL (3.5-5.0); Alkaline Phosphatase 85 U/L (39-117); Aspartate Amino Transferase 22 U/L (5-31); Bilirubin Total 0.7 mg/dL (0.0-1.0); Blood Urea Nitrogen 15 mg/dL (9-16); Calcium 9.3 mg/dL (8.4-10.2); Carbon Dioxide 27 mmol/L (22-29); Chloride 110 mmol/L (96-108); Cholesterol 120 mg/dL (<200); Estimated Glomerular Filt Rate > 60; Glucose Random 119 mg/dL (60-115); HDL Cholesterol 40 mg/dL (>40); LDL Cholesterol Calculated 66 mg/dL (<100); Sodium 142 mmol/L (135-145); Total Protein 6.7 g/dL (6.5-8.0); Triglycerides 72 mg/dL (<150)
[2024-02-27 10:38] LABS: Bacteria Urine None Seen (None Seen); Hyaline Casts Urine 0-2 /LPF (0-2); UACC Culture Trigger YES; WBC Urine 0-5 /HPF (0-5)
[2024-02-27 10:44] LABS: Folate 16.5 ng/mL (> or = 4.0); Vitamin B12 916 pg/mL (200-900)
[2024-02-29 03:18] LABS: Lyme Abs Screen <0.90 index
== END 2024-02-27 08:14 | disposition home or self-care (01) ==
LOC: HO.XRAY 08:13
PROVIDERS: PCP Internal Medicine; Visit Provider Internal Medicine
DX: R73.02 Impaired glucose tolerance (oral) (principal); E03.9 Hypothyroidism, unspecified; R09.02 Hypoxemia; T14.8XXA Other injury of unspecified body region, initial encounter; E78.00 Pure hypercholesterolemia, unspecified; I25.10 Atherosclerotic heart disease of native coronary artery without angina pectoris; R30.0 Dysuria
CPT/HCPCS: 36415; 71046; 80053; 80061; 81001; 82306; 82607; 82746; 83036; 84439; 84443; 85025; 86617; 86618; 87086

== ENCOUNTER 2024-03-16 14:03 | Outpatient (AMB) | payer MEDICARE, SELFPAY ==
--- NOTE | 2024-03-16 14:11 | MHC.OFFVIS ---
Vital Signs 03/16/24 14:12 Height 5 ft 4 in Weight 178 lb 9.191 oz BMI 30.6 BP 128/84 Blood Pressure Location Rt brachial Position Sitting Pulse 67 Pulse Source Pulse Oximeter Pulse Oximetry (%) 94 Oxygen Delivery Method Room Air Intake Visit Reasons: Hypoxemia Allergies venom-honey bee Allergy (Intermediate, Verified 03/16/24 14:14) swelling sulfamethoxazole [From Bactrim] Adverse Reaction (Intermediate, Verified 03/16/24 14:14) nausea trimethoprim [From Bactrim] Adverse Reaction (Intermediate, Verified 03/16/24 14:14) nausea estradiol [From Vagifem] Adverse Reaction (Unknown, Verified 03/16/24 14:14) rash HPI HPI Hypoxemia: Details: Amanda is a pleasant 69 year old female, former minimal smoker, quit 30+ years ago underlying CAD, HTN, and Grave's disease. She was referred by PCP for pulmonary evaluation for new onset hypoxia. She was seen at PCPs office, at rest 89% and 87% with exertion. A prescription for supplemental oxygen was sent however she reports she declined. She denies prior episodes of hypoxia. She does report occasional productive cough with white sputum for the last few years and has noted worsening dyspnea on minimal exertion with occasional wheezing over the last few months. She denies prior history of asthma. She does report significant secondhand smoke exposure as a child. She denies history of recurrent infections. 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 She denies any pertinent family history. She reports seasonal allergies however mild. She is under the care of cardiology for CAD and HTN. She also home sleep study in August which revealed mild MARGOT, not on CPAP therapy. [facility] Medical History CAD (coronary artery disease) Medicare annual wellness visit, initial Colon cancer screening Colonoscopy refused Moderate tricuspid regurgitation Hypersomnia Osteopenia Impaired glucose tolerance Graves disease Hypertension Obesity (BMI 30-39.9) Hypothyroid Surgical History Hx of colonoscopy History of eye surgery History of oral surgery History of tonsillectomy History of tubal ligation Family History Father Colon cancer Mother CAD (coronary artery disease) Myocardial infarction Paternal Aunt Myocardial infarction Sister Diabetes Hypertension Social History (Updated 03/18/24 @ 11:58 by Bessy Garzon NP) Housing: House Are you a primary hearing healthcare practitioner to a significant other at home: No Do you presently have visiting nurse or other home services: No Alcohol intake: current Alcohol intake frequency: holidays/special occasions only Patient Tobacco Use Status: Former Tobacco user Tobacco use type: Cigarette Years Smoked: 15 years old e-Cigarette/Vaping Use: Never Used Second Hand Smoke Exposure: No service: No Current occupational status: retired Cognitive needs: No Hearing needs: No Vision needs: Yes (glasses) Review of Systems Const Denies chills, Denies excessive sweating, Denies fever(s), Denies headache(s) and Denies night sweats Eyes Denies dry eyes, Denies irritation and Denies itchy eyes ENT Reports Normal hearing present, Denies headache(s), Denies nasal congestion, Denies nasal discharge, Denies post nasal drip and Denies sore throat Card Denies chest pain, Denies chest pain at rest, Denies chest pain with activity, Denies claudication, Denies leg edema, Denies orthopnea and Denies paroxysmal nocturnal dyspnea Resp Denies chest congestion, Denies excessive phlegm production, Denies pain on inspiration, Denies pain with cough and Denies stridor Musc Denies myalgias Neuro Reports Normal hearing present and Denies headache(s) Endo Denies excessive sweating Pro/Lymph Denies lymphadenopathy Aller/Immun Denies itchy eyes and Denies seasonal rhinorrhea Physical Exam Vital Signs: Last Vital Signs Pulse 67 03/16/24 14:12 BP 128/84 03/16/24 14:12 Pulse Ox 94 03/16/24 14:12 Oxygen Delivery Method Room Air 03/16/24 14:12 BMI result Body Mass Index 30.6 Const General: cooperative, healthy appearing, comfortable, no acute distress, well developed and alert Orientation/consciousness: patient oriented x3 Limitations: no limitations HEENT Head: Yes normal to inspection, Yes normocephalic and Yes atraumatic Ears: hearing grossly normal bilaterally and external ears normal Eyes General: appearance normal, both eyes and all related structures Eyelids: Yes eyelids normal Sclerae: sclerae normal EOM: EOMs intact bilaterally Neck Neck: Yes normal visual inspection and Yes no lymphadenopathy Lymphatic: no lymphadenopathy noted Chest Chest palpation & inspection: normal inspection of the chest Resp Effort & Inspection: normal respiratory effort, able to speak in complete sentences, no audible wheezes, no cough, no stridor, not tachypneic, no tripod positioning and no use of accessory muscles Auscultation: clear to auscultation bilaterally Cardio Jugular venous distension: no JVD Rate: regular rate Rhythm: regular rhythm Skin Other: warm, dry General skin exam: no rashes or lesions noted Neuro General: patient oriented x3 Cranial nerves: Yes Normal hearing present Cognition (Neuro): normal cognition Gait exam (Neuro): Normal gait present Extrem General: Yes normal to inspection, Yes capillary refill normal, Yes no clubbing, cyanosis or edema and Yes no pedal edema Psych Appearance: grossly normal and well kempt Speech and movement: Normal speech and movement present and Clear speech present Affect: normal affect Attitude: cooperative Thought process: Normal thought process present Thought content: Normal thought content present Insight: Good insight present (Psych) Judgement: Good judgement present (Psych) Office Procedures 6 Minute Walk Time:: 14:55 SPO2 % at rest: 96 Pulse at rest: 79 SPO2 % during excercise: 93 Pulse during excercise: 88 SPO2 % after excercise: 95 Pulse after excercise: 75 Distance in yards walked: 750 Tanna Score: 2 Performance Observations:: Patient walked on level ground unassisted at a moderate pace. Maintained O2 saturation of 93% or greater and pulse of 88 or less for the entirety of the walk. Denies shortness of breath. Did not require the use of supplemental O2. 68699 - 6 Minute Walk Assessment & Plan Assessment & Plan (1) Hypoxemia: Code(s): R09.02 - Hypoxemia Category: Medical (2) Chronic cough: Code(s): R05.3 - Chronic cough Category: Medical (3) Dyspnea on exertion: Code(s): R06.09 - Other forms of dyspnea Category: Medical Plan Amanda presents for pulmonary evaluation for reason hypoxia found at PCP visit. Unclear etiology. Will send for chest CT to assess for any underlying parenchymal condition as well as PFT. 6MWT performed at today's visit and patient does not require supplemental oxygen with ambulation. Will send for overnight oximetry to assess for nocturnal hypoxemia. All questions were answered and patient is in agreement of plan. Will follow-up to review results or sooner if needed. Orders: Orders CT chest wo IV con Today R05.3 - Chronic cough, R09.02 - Hypoxemia Overnight Pulse Oximetry Today G47.34 - Idiopathic sleep related nonobstructive alveolar hypoventilation AMB 6 minute walk 03/16/24 R09.02 - Hypoxemia PFT pulmonary function test Today R05.3 - Chronic cough Coding Level of Care Code New Pt Level 4 (95968) Diagnoses Hypoxemia R09.02 Chronic cough R05.3 Dyspnea on exertion R06.09 CPT Codes Coding ([id number])
[2024-03-16 14:12] VITALS: BP 128/84; PULSE 67; O2SAT 94; BMI 30.6
[2024-03-16 15:13] VITALS: PULSE 79; O2SAT 96
== END 2024-03-16 15:02 | disposition home or self-care (01) ==
LOC: HO.HPS 14:03
PROVIDERS: PCP Internal Medicine; Referring Provider Internal Medicine; Visit Provider Nurse Practitioner Family
DX: R09.02 Hypoxemia (principal); R05.3 Chronic cough
CPT/HCPCS: 94618; 99204

== ENCOUNTER → 2024-03-16 14:03 | Outpatient (BNVA) | payer MEDICARE, SELFPAY | PROVIDERS: PCP Internal Medicine; Referring Provider Internal Medicine; Visit Provider Nurse Practitioner Family | DX: R09.02 Hypoxemia (principal); R05.3 Chronic cough; R06.09 Other forms of dyspnea | CPT/HCPCS: 94618; 99202 ==

== ENCOUNTER 2024-05-01 07:48 | Outpatient (REF) | payer MEDICARE, SELFPAY ==
--- NOTE | 2024-05-01 08:10 | PFT_ITS ---
Indication: Hypoxia Spirometry [FEV1 to FVC 70% pre bronchodilators 75% post bronchodilators; FEV1 1.99 L; FVC 2.67 L. no significant response to bronchodilators noted. The maximum voluntary ventilation 101% predicted] Lung Volumes [Total capacity 82% predicted] Diffusion Capacity [DLCO 79% predicted] Comparisons [None] Interpretation [The patient appears to have a mild reversible obstruction suggesting the possibility of asthma. No significant response to bronchodilators noted. Although there is some evidence of small airways disease which is suspicious for asthma. Lung volumes are low normal therefore occult interstitial lung conditions can not be ruled out. The patient does have a very mild diffusion impairment. Clinical correlation warranted.] MTDD
[2024-05-01 10:12] VITALS: PULSE 72; O2SAT 94
== END 2024-05-01 07:49 | disposition home or self-care (01) ==
LOC: HO.RESP 07:48
PROVIDERS: PCP Internal Medicine; Visit Provider Nurse Practitioner Family
DX: R05.3 Chronic cough (principal)
CPT/HCPCS: 94010; 94640; 94727; 94729

== ENCOUNTER → 2024-05-01 08:10 | Outpatient (BNV) | payer MEDICARE, SELFPAY | PROVIDERS: PCP Internal Medicine; Visit Provider Hospitalist | DX: R09.02 Hypoxemia (principal); R05.3 Chronic cough | CPT/HCPCS: 94060; 94727; 94729 ==

== ENCOUNTER 2024-05-06 08:31 | Outpatient (REF) | payer MEDICARE, SELFPAY | END 2024-05-06 08:32 | disposition home or self-care (01) | LOC: HO.CT 08:31 | PROVIDERS: PCP Internal Medicine; Visit Provider Nurse Practitioner Family | DX: R09.02 Hypoxemia (principal); R05.3 Chronic cough | CPT/HCPCS: 71250 ==

== ENCOUNTER 2024-05-25 13:42 | Outpatient (AMB) | payer MEDICARE, SELFPAY ==
--- NOTE | 2024-05-25 13:48 | A.OFFVIS_ITS ---
Vital Signs 05/25/24 13:49 Height 5 ft 4 in Weight 178 lb 9.191 oz BMI 30.6 BP 122/70 Blood Pressure Location Rt brachial Position Sitting Pulse 55 Pulse Source Pulse Oximeter Pulse Oximetry (%) 93 Oxygen Delivery Method Room Air Intake Visit Reasons: Hypoxemia Divine Healer Required: No Supervisor Bottle Machines: Supervisor Bottle Machines offered & declined Accompanied by: Self / Same As Patient Allergies venom-honey bee Allergy (Intermediate, Verified 05/25/24 13:55) swelling sulfamethoxazole [From Bactrim] Adverse Reaction (Intermediate, Verified 05/25/24 13:55) nausea trimethoprim [From Bactrim] Adverse Reaction (Intermediate, Verified 05/25/24 13:55) nausea estradiol [From Vagifem] Adverse Reaction (Unknown, Verified 05/25/24 13:55) rash Medication List - Last Reconciled 05/25/24 by Elisabet Antonio LPN aspirin (Ecotrin Low Strength) 81 mg PO DAILY atorvastatin 40 mg PO DAILY 90 days cholecalciferol (vitamin D3) 50 mcg PO DAILY cyanocobalamin (vitamin B-12) 1,000 mcg PO DAILY isosorbide mononitrate ER 30 mg PO DAILY levothyroxine 88 mcg PO QAM metoprolol succinate ER (Toprol XL) 25 mg (1/2 x 50 mg) PO DAILY multivitamin,ua-wftm-stavydor (Complete Multivitamin tablet) 1 tab PO DAILY Oxygen Home Use As directed O2 2 L NC HPI HPI Hypoxemia: Details: Amanda is a pleasant 69 year old female, former minimal smoker, quit 30+ years ago underlying CAD, HTN, and Grave's disease. She was initially referred by PCP for pulmonary evaluation for new onset hypoxia, lowest 87% at PCP office. At the last visit, 6MWT was performed and patient did not require supplemental oxygen. Today she presents to review overnight oximetry, PFT and chest CT results. Unfortunately chest CT is not officially read today. She denies any visits to urgent care or hospitalizations related to respiratory distress since the last visit. She has been more aware of respiratory symptoms noting decrease endurance, wheezing and continues with cough. [facility] Medical History CAD (coronary artery disease) Medicare annual wellness visit, initial Colon cancer screening Colonoscopy refused Moderate tricuspid regurgitation Hypersomnia Osteopenia Impaired glucose tolerance Graves disease Hypertension Obesity (BMI 30-39.9) Hypothyroid Surgical History Hx of colonoscopy History of eye surgery History of oral surgery History of tonsillectomy History of tubal ligation Family History Father Colon cancer Mother CAD (coronary artery disease) Myocardial infarction Paternal Aunt Myocardial infarction Sister Diabetes Hypertension Social History (Updated 03/18/24 @ 11:58 by Bessy Garzon NP) Housing: House Are you a primary long term care pharmacist to a significant other at home: No Do you presently have visiting nurse or other home services: No Alcohol intake: current Alcohol intake frequency: holidays/special occasions only Patient Tobacco Use Status: Former Tobacco user Tobacco use type: Cigarette Years Smoked: 15 years old e-Cigarette/Vaping Use: Never Used Second Hand Smoke Exposure: No service: No Current occupational status: retired Cognitive needs: No Hearing needs: No Vision needs: Yes (glasses) Review of Systems Const Denies chills, Denies excessive sweating, Denies fever(s), Denies headache(s) and Denies night sweats Eyes Denies dry eyes, Denies irritation and Denies itchy eyes ENT Reports Normal hearing present, Denies headache(s), Denies nasal congestion, Denies nasal discharge, Denies post nasal drip and Denies sore throat Card Denies chest pain, Denies chest pain at rest, Denies chest pain with activity, Denies claudication, Denies leg edema, Denies orthopnea and Denies paroxysmal nocturnal dyspnea Resp Denies chest congestion, Denies excessive phlegm production, Denies pain on inspiration, Denies pain with cough and Denies stridor Musc Denies myalgias Neuro Reports Normal hearing present and Denies headache(s) Endo Denies excessive sweating Pro/Lymph Denies lymphadenopathy Aller/Immun Denies itchy eyes and Denies seasonal rhinorrhea Physical Exam Vital Signs: Last Vital Signs Pulse 55 05/25/24 13:49 BP 122/70 05/25/24 13:49 Pulse Ox 93 05/25/24 13:49 Oxygen Delivery Method Room Air 05/25/24 13:49 BMI result Body Mass Index 30.6 Const General: cooperative, healthy appearing, comfortable, no acute distress, well developed and alert Orientation/consciousness: patient oriented x3 Limitations: no limitations HEENT Head: Yes normal to inspection, Yes normocephalic and Yes atraumatic Ears: hearing grossly normal bilaterally and external ears normal Eyes General: appearance normal, both eyes and all related structures Eyelids: Yes eyelids normal Sclerae: sclerae normal EOM: EOMs intact bilaterally Neck Neck: Yes normal visual inspection and Yes no lymphadenopathy Lymphatic: no lymphadenopathy noted Chest Chest palpation & inspection: normal inspection of the chest Resp Effort & Inspection: normal respiratory effort, able to speak in complete sentences, no audible wheezes, no cough, no stridor, not tachypneic, no tripod positioning and no use of accessory muscles Auscultation: clear to auscultation bilaterally Cardio Jugular venous distension: no JVD Rate: regular rate Rhythm: regular rhythm Skin Other: warm, dry General skin exam: no rashes or lesions noted Neuro General: patient oriented x3 Cranial nerves: Yes Normal hearing present Cognition (Neuro): normal cognition Gait exam (Neuro): Normal gait present Extrem General: Yes normal to inspection, Yes capillary refill normal, Yes no clubbing, cyanosis or edema and Yes no pedal edema Psych Appearance: grossly normal and well kempt Speech and movement: Normal speech and movement present and Clear speech present Affect: normal affect Attitude: cooperative Thought process: Normal thought process present Thought content: Normal thought content present Insight: Good insight present (Psych) Judgement: Good judgement present (Psych) Assessment & Plan Assessment & Plan (1) Asthma: Code(s): J45.909 - Unspecified asthma, uncomplicated Category: Medical (2) Chronic cough: Code(s): R05.3 - Chronic cough Category: Medical (3) Dyspnea on exertion: Code(s): R06.09 - Other forms of dyspnea Category: Medical Plan Reviewed PFT which revealed mild reversible obstruction suggestive of asthma. No significant response to bronchodilators noted, only in the small to medium airways. Lung volumes are low normal therefore occult interstitial lung conditions can not be ruled out. The patient does have a very mild diffusion impairment and was sent for chest CT to assess for any underlying parenchymal conditions. Unfortunately chest CT not officially read, will discuss results when available. Reviewed overnight oximetry which revealed <88% for 6 minutes and suggestive of underlying MARGOT, which was confirmed on prior home sleep study. She is aware she has mild MARGOT, however does not want to proceed with CPAP therapy at this time. In regards to likely asthma dx, will send albuterol MDI to trial, if effective she would then consider ICS/LABA. All questions were answered and patient is in agreement of plan. Will follow-up in 6-8 weeks or sooner if needed. Medications: New albuterol sulfate 90 mcg/actuation 2 puffs inhalation Q4-6H PRN 1 ea 3RF shortness of breath or wheezing Coding Level of Care Code Est Pt Level 4 (68691) Diagnoses Asthma J45.909 Chronic cough R05.3 Dyspnea on exertion R06.09
[2024-05-25 13:49] VITALS: BP 122/70; PULSE 55; O2SAT 93; BMI 30.6
== END 2024-05-25 14:28 | disposition home or self-care (01) ==
PROVIDERS: PCP Internal Medicine; Visit Provider Nurse Practitioner Family
DX: J45.909 Unspecified asthma, uncomplicated (principal); R05.3 Chronic cough; R06.09 Other forms of dyspnea
CPT/HCPCS: 99214

== ENCOUNTER → 2024-05-25 13:42 | Outpatient (BNVA) | payer MEDICARE, SELFPAY | PROVIDERS: PCP Internal Medicine; Visit Provider Nurse Practitioner Family | DX: J45.909 Unspecified asthma, uncomplicated (principal); R06.09 Other forms of dyspnea; R05.3 Chronic cough | CPT/HCPCS: 99212 ==

== ENCOUNTER 2024-06-11 09:15 | Outpatient (AMB) | payer MEDICARE, SELFPAY ==
--- NOTE | 2024-06-11 09:22 | A.OFFPC_ITS ---
Vital Signs 06/11/24 09:23 Height 5 ft 4 in Weight 179 lb BMI 30.7 BP 134/76 Blood Pressure Location Lt brachial Position Sitting Pulse 75 Pulse Source Pulse Oximeter Pulse Oximetry (%) 96 Oxygen Delivery Method Room Air Intake Visit Reasons: hypoxemia, CAD Allergies venom-honey bee Allergy (Intermediate, Verified 06/11/24 09:25) swelling sulfamethoxazole [From Bactrim] Adverse Reaction (Intermediate, Verified 06/11/24 09:25) nausea trimethoprim [From Bactrim] Adverse Reaction (Intermediate, Verified 06/11/24 09:25) nausea estradiol [From Vagifem] Adverse Reaction (Unknown, Verified 06/11/24 09:25) rash Tobacco use date assessed: 06/11/24 Fall risk assessment: No Falls in past year Last assessed Fall Risk: 06/11/24 Dental Screening Dental Screen Date: 06/11/24 Did you have a dental visit in the last 12 months?: Yes Did you have a dental problem in the last 6 months where you did not have access to dental care?: No Was dental information given to patient?: Patient has dentist HPI hypoxemia, CAD HPI Details The patient is a 69-year-old female presenting with follow-up care for asthma and sleep apnea management, as well as monitoring of blood glucose levels and lipid profile. The patient's asthma was recently supported by objective test ing, showing signs on a pulmonary function test. She has been prescribed an albuterol inhaler primarily used before physical activity, with noted improvement in her ability to exercise. There is a mention of potential transition to a controller inhaler depending on further evaluation of symptoms. She was noted to experience a decrease in oxygen saturation to 88% during sleep, correlating with a diagnosis of mild obstructive sleep apnea. Consequently, nighttime supplemental oxygen has been recommended. Impaired fasting glucose was identified with readings ranging from 105 to 119 mg/dL over recent years. Hemoglobin A1c is measured at 6.0%, indicating a trend towards potential diabetes mellitus if not addressed via lifestyle modifications. No specific symptoms were reported related to hyperglycemia. The lipid profile indicates hyperlipidemia with controlled levels due to medication, as evidenced by LDL cholesterol at 66 mg/dL. The patient also has coronary artery disease with noted artery stenosis, managed with cholesterol- lowering medications. The blockage assessment showed 65% stenosis, and aggressive lipid control is ongoing to prevent further arteriosclerosis progression. [facility], [facility] Medical History CAD (coronary artery disease) Medicare annual wellness visit, initial Colon cancer screening Colonoscopy refused Moderate tricuspid regurgitation Hypersomnia Osteopenia Impaired glucose tolerance Graves disease Hypertension Obesity (BMI 30-39.9) Hypothyroid Surgical History Hx of colonoscopy History of eye surgery History of oral surgery History of tonsillectomy History of tubal ligation Family History Father Colon cancer Mother CAD (coronary artery disease) Myocardial infarction Paternal Aunt Myocardial infarction Sister Diabetes Hypertension Social History (Updated 03/18/24 @ 11:58 by Bessy Garzon NP) Housing: House Are you a primary adult day care worker to a significant other at home: No Do you presently have visiting nurse or other home services: No Alcohol intake: current Alcohol intake frequency: holidays/special occasions only Patient Tobacco Use Status: Former Tobacco user Tobacco use type: Cigarette Years Smoked: 15 years old e-Cigarette/Vaping Use: Never Used Second Hand Smoke Exposure: No service: No Current occupational status: retired Cognitive needs: No Hearing needs: No Vision needs: Yes (glasses) Questionnaire PHQ-9 Over the last 2 weeks, how often have you been bothered by any of the following problems? 1. Little interest or pleasure in doing things: not at all 2. Feeling down, depressed, or hopeless: not at all 3. Trouble falling or staying asleep, or sleeping too much: not at all 4. Feeling tired or having little energy: not at all 5. Poor appetite or overeating: not at all 6. Feeling bad about yourself - or that you are a failure or have let yourself o r your family down: not at all 7. Trouble concentrating on things, such as reading the newspaper or watching television: not at all 8. Moving or speaking so slowly that other people could have noticed. Or the opposite - being so fidgety or restless that you have been moving around a lot more than usual: not at all 9. Thoughts that you would be better off or of hurting yourself in some way: not at all Total score: 0 Depression Screening Interpretation: Negative Depression Screening Done: Yes Source: Developed by Drs. Edvin Phillip, Micky Barriga and colleagues, with an educational radha from [employer]. Thrive Questionnaire Date Thrive assessed: 06/11/24 I am a: Patient What is your living situation today?: I have a steady place to live Within the past 12 months, did the food you bought not last and you didn't have the money to get more?: Never true Within the past 12 months, did you worry whether your food would run out before you got money to buy more?: Never true Do you have trouble paying for medicines?: No Do you have trouble getting transportation to medical appointments?: No Do you have trouble paying your heating and electricity bill?: No Do you have trouble taking care of your child, family member or friend?: No Do you have trouble with day-to-day activities such as bathing, preparing meals, shopping, managing finances, etc.?: No Are you currently unemployed and looking for a job?: No Are you interested in more education?: No Currently or been in a relationship where the following occur: No concerns reported THRIVE Score: 0 AUDIT C Alcohol Use Questionnaire (AUDIT-C) 3. How often do you have six or more drinks on one occasion?: Never Total Score: 0 MOHAMUD-7 AMB Questionnaire MOHAMUD-7 Date MOHAMUD - 7 assessed: 06/11/24 Feeling nervous, anxious, or on edge: 0 = Not at all Not being able to stop or control worryin = Not at all Worrying too much about different things: 0 = Not at all Trouble relaxin = Not at all Being so restless that it is hard to sit still: 0 = Not at all Becoming easily annoyed or irritable: 0 = Not at all Feeling afraid as if something awful might happen: 0 = Not at all Total MOHAMUD-7 score (0-4 normal; 5-9 mild; 10-14 moderate; 15-21 severe): 0 Source: Developed by Drs. Edvin Phillip, Micky Barriga and colleagues, with an educational radha from [employer]. Physical exam (Primary Care) Vital Signs: Last Vital Signs Pulse 75 06/11/24 09:23 BP 134/76 06/11/24 09:23 Pulse Ox 96 06/11/24 09:23 Oxygen Delivery Method Room Air 06/11/24 09:23 BMI result Body Mass Index 30.7 Tobacco/Smoking Status: Tobacco use Status Tobacco use date assessed 06/11/24 06/11/24 09:32 Patient Tobacco Use Status Former Tobacco user 06/11/24 09:32 Tobacco use type Cigarette 06/11/24 09:32 e-Cigarette/Vaping Use Never Used 06/11/24 09:32 PHQ-9: PHQ-9 Score PHQ-9: Total score 0 06/11/24 10:21 Depression Screening Interpretation: Negative Thrive Assessment: Date of Thrive Assessment Date Thrive assessed 06/11/24 06/11/24 09:32 Currently or been in a relationship where the following occur: No concerns reported Const General: alert; No acute distress Eyes Conjunctivae: conjunctivae normal Resp Auscultation: clear to auscultation bilaterally Cardio Rate: regular rate Rhythm: regular rhythm GI Inspection: Yes normal to inspection Extrem General: Yes normal to inspection and No edema Immunizations pneumoc 20-jethro conj-dip cr(PF) 0.5 mL IM syringe Performing Provider: Zainab Bernal MD [facility] Administered by: LATISHA Turpin on 06/11/24 10:20 Dose Route Admin Location Dispensed Lot Number Expiration Date [facility] Top Inventory Control Executive 0.5 mL IM Left Deltoid 0.5 mL [id number] 09/17/25 [id number] WYETH/PFIZER VIS Given Date VIS Provided VIS Publication Date 06/11/24 Single Vaccine 21 Eligibility Eligibility Date Funding Source Not [facility] Eligible 06/11/24 Private Coding Level of Care Code Est Pt Level 4 (62353) Complex EM visit Add On G2211 Diagnoses Asthma J45.909 Nocturnal hypoxemia G47.34 CAD (coronary artery disease) I25.10 Impaired glucose tolerance R73.02 Essential hypertension I10 Hypertension type: essential hypertension Acquired hypothyroidism E03.9 Hypothyroidism type: acquired Obesity (BMI 30-39.9) E66.9 Assessment & Plan Assessment & Plan (1) Asthma: Code(s): J45.909 - Unspecified asthma, uncomplicated Category: Medical (2) Nocturnal hypoxemia: Code(s): G47.34 - Idiopathic sleep related nonobstructive alveolar hypoventilation Category: Medical (3) CAD (coronary artery disease): Comment: CTA April 2023 Code(s): I25.10 - Atherosclerotic heart disease of [place] coronary artery without angina pectoris Category: Medical (4) Impaired glucose tolerance: Code(s): R73.02 - Impaired glucose tolerance (oral) Category: Medical (5) Hypertension: Code(s): I10 - Essential (primary) hypertension Category: Medical Qualifiers: Hypertension type: essential hypertension Qualified Code(s): I10 - Essential (primary) hypertension (6) Hypothyroid: Code(s): E03.9 - Hypothyroidism, unspecified Category: Medical Qualifiers: Hypothyroidism type: acquired Qualified Code(s): E03.9 - Hypothyroidism, unspecified (7) Obesity (BMI 30-39.9): Code(s): E66.9 - Obesity, unspecified Category: Medical Plan - Continue current asthma management with consideration for a controller inhaler based on symptom assessment. Evaluate lung function and asthma control strategy in follow-up. - Monitor and manage obstructive sleep apnea with continued nighttime supplemental oxygen. Reassess oxygen saturation levels in subsequent visits. - Conductor And Engineer on lifestyle modifications to address impaired fasting glucose. Stress the importance of dietary changes with reduction in carbohydrate intake in cluding pasta, bread, rice, and potatoes. - Continue current statin therapy for hyperlipidemia to maintain LDL levels beneath 70 mg/dL. Follow up lipid panel as clinically indicated. - Discuss potential interventions for coronary artery stenosis if symptoms or cholesterol management indicate further concern. Reaffirm adherence to medication for cholesterol management and potential side effects. - Pneumococcal vaccination to proceed today to enhance protection given respiratory concerns. - Reinforce flu precautionary measures and consider flu shot benefits, particularly during the respiratory virus season. - Blood glucose levels to be re-evaluated in six months to monitor progression towards diabetes. Orders: Orders Lipid Panel Today E78.00 - Pure hypercholesterolemia, unspecified Pneumococcal 20 Immunization Today Z23 - Encounter for immunization
[2024-06-11 09:23] VITALS: BP 134/76; PULSE 75; O2SAT 96; BMI 30.7
== END 2024-06-11 12:22 | disposition home or self-care (01) ==
PROVIDERS: PCP Internal Medicine; Visit Provider Internal Medicine
DX: J45.909 Unspecified asthma, uncomplicated (principal); G47.34 Idiopathic sleep related nonobstructive alveolar hypoventilation; E66.9 Obesity, unspecified; Z68.30 Body mass index [BMI] 30.0-30.9, adult; I25.10 Atherosclerotic heart disease of native coronary artery without angina pectoris; R73.02 Impaired glucose tolerance (oral); I10 Essential (primary) hypertension; E03.9 Hypothyroidism, unspecified; Z23 Encounter for immunization

== ENCOUNTER → 2024-06-11 09:15 | Outpatient (BNVA) | payer MEDICARE, SELFPAY | PROVIDERS: PCP Internal Medicine; Visit Provider Internal Medicine | DX: Z23 Encounter for immunization (principal); J45.909 Unspecified asthma, uncomplicated; G47.34 Idiopathic sleep related nonobstructive alveolar hypoventilation; I25.10 Atherosclerotic heart disease of native coronary artery without angina pectoris; R73.02 Impaired glucose tolerance (oral); E03.9 Hypothyroidism, unspecified; I10 Essential (primary) hypertension; E66.9 Obesity, unspecified | CPT/HCPCS: 90471; 90677; 99212 ==

== ENCOUNTER 2024-07-13 10:27 | Outpatient (AMB) | payer MEDICARE, SELFPAY ==
--- NOTE | 2024-07-12 19:39 | A.OFFVIS_ITS ---
Vital Signs 07/13/24 10:35 Height 5 ft 4 in Weight 175 lb 4.28 oz BMI 30.1 BP 118/68 Blood Pressure Location Rt brachial Position Sitting Pulse 86 Pulse Source Pulse Oximeter Pulse Oximetry (%) 95 Oxygen Delivery Method Room Air Intake Visit Reasons: Hypoxemia Ror Engineer Required: No Turkey Roll Maker: Turkey Roll Maker offered & declined Accompanied by: Self / Same As Patient Allergies venom-honey bee Allergy (Intermediate, Verified 07/13/24 10:43) swelling sulfamethoxazole [From Bactrim] Adverse Reaction (Intermediate, Verified 07/13/24 10:43) nausea trimethoprim [From Bactrim] Adverse Reaction (Intermediate, Verified 07/13/24 10:43) nausea estradiol [From Vagifem] Adverse Reaction (Unknown, Verified 07/13/24 10:43) rash Medication List - Last Reconciled 07/13/24 by Elisabet Antonio LPN albuterol sulfate 90 mcg/actuation 2 puffs inhalation Q4-6H PRN aspirin (Ecotrin Low Strength) 81 mg PO DAILY atorvastatin 40 mg PO DAILY 90 days cholecalciferol (vitamin D3) 50 mcg PO DAILY cyanocobalamin (vitamin B-12) 1,000 mcg PO DAILY isosorbide mononitrate ER 30 mg PO DAILY levothyroxine 88 mcg PO QAM metoprolol succinate ER (Toprol XL) 25 mg (1/2 x 50 mg) PO DAILY multivitamin,[id number] (Complete Multivitamin tablet) 1 tab PO DAILY Oxygen Home Use As directed O2 2 L NC HPI HPI Hypoxemia: Details: Amanda is a pleasant 69 year old female, former minimal smoker, quit 30+ years ago underlying CAD, HTN, and Grave's disease. She was initially referred by PCP for pulmonary evaluation for new onset hypoxia, lowest 87% at PCP office. Previously 6MWT was performed and patient did not require supplemental oxygen. Overnight oximetry performed which revealed 6 minutes of hypoxia, however she did not want to initiate nocturnal supplemental oxygen or CPAP therapy for mild AMRGOT. She is currently recovering from the flu which she had 4 weeks ago, overall improvements in chest congestion, dyspnea and cough. She did not seek urgent /emergent care. She notes symptoms have slowly improved and today was the first day she was able to get back to her exercise routine. She denies any visits to urgent care or hospitalizations related to respiratory distress since the last visit. [facility] Medical History CAD (coronary artery disease) Medicare annual wellness visit, initial Colon cancer screening Colonoscopy refused Moderate tricuspid regurgitation Hypersomnia Osteopenia Impaired glucose tolerance Graves disease Hypertension Obesity (BMI 30-39.9) Hypothyroid Surgical History Hx of colonoscopy History of eye surgery History of oral surgery History of tonsillectomy History of tubal ligation Family History Father Colon cancer Mother CAD (coronary artery disease) Myocardial infarction Paternal Aunt Myocardial infarction Sister Diabetes Hypertension Social History (Updated 03/18/24 @ 11:58 by Bessy Garzon NP) Housing: House Are you a primary childcare administrator to a significant other at home: No Do you presently have visiting nurse or other home services: No Alcohol intake: current Alcohol intake frequency: holidays/special occasions only Patient Tobacco Use Status: Former Tobacco user Tobacco use type: Cigarette Years Smoked: 15 years old e-Cigarette/Vaping Use: Never Used Second Hand Smoke Exposure: No service: No Current occupational status: retired Cognitive needs: No Hearing needs: No Vision needs: Yes (glasses) Review of Systems Const Denies chills, Denies excessive sweating, Denies fever(s), Denies headache(s) and Denies night sweats Eyes Denies dry eyes, Denies irritation and Denies itchy eyes ENT Reports Normal hearing present and Denies headache(s) Card Denies chest pain, Denies chest pain at rest, Denies chest pain with activity, Denies claudication, Denies leg edema, Denies dyspnea, Denies dyspnea on exertion, Denies orthopnea and Denies paroxysmal nocturnal dyspnea Resp Denies chest congestion, Denies cough, Denies excessive phlegm production, Denies pain on inspiration, Denies pain with cough, Denies dyspnea, Denies dyspnea on exertion, Denies stridor and Denies wheezing Musc Denies myalgias Neuro Reports Normal hearing present and Denies headache(s) Endo Denies excessive sweating Pro/Lymph Denies lymphadenopathy Aller/Immun Denies itchy eyes, Denies seasonal rhinorrhea and Denies wheezing Physical Exam Vital Signs: Last Vital Signs Pulse 86 07/13/24 10:35 BP 118/68 07/13/24 10:35 Pulse Ox 95 07/13/24 10:35 Oxygen Delivery Method Room Air 07/13/24 10:35 BMI result Body Mass Index 30.1 Const General: cooperative, healthy appearing, comfortable, no acute distress, well developed and alert Orientation/consciousness: patient oriented x3 Limitations: no limitations HEENT Head: Yes normal to inspection, Yes normocephalic and Yes atraumatic Ears: hearing grossly normal bilaterally and external ears normal Eyes General: appearance normal, both eyes and all related structures Eyelids: Yes eyelids normal Sclerae: sclerae normal EOM: EOMs intact bilaterally Neck Neck: Yes normal visual inspection and Yes no lymphadenopathy Lymphatic: no lymphadenopathy noted Chest Chest palpation & inspection: normal inspection of the chest Resp Effort & Inspection: normal respiratory effort, able to speak in complete sentences, no audible wheezes, no cough, no stridor, not tachypneic, no tripod positioning and no use of accessory muscles Auscultation: clear to auscultation bilaterally Cardio Jugular venous distension: no JVD Rate: regular rate Rhythm: regular rhythm Skin Other: warm, dry General skin exam: no rashes or lesions noted Neuro General: patient oriented x3 Cranial nerves: Yes Normal hearing present Cognition (Neuro): normal cognition Gait exam (Neuro): Normal gait present Extrem General: Yes normal to inspection, Yes capillary refill normal, Yes no clubbing, cyanosis or edema and Yes no pedal edema Psych Appearance: grossly normal and well kempt Speech and movement: Normal speech and movement present and Clear speech present Affect: normal affect Attitude: cooperative Thought process: Normal thought process present Thought content: Normal thought content present Insight: Good insight present (Psych) Judgement: Good judgement present (Psych) Results Reviewed Results Reviewed: [address] [address] [address] Scan Report Signed Patient: Amanda De Oliveira MR#: [id number] : 1955 Acct:[id number] Age/Sex: 69 / F ADM Date: 05/06/24 Loc: HO.CT Attending Dr: Bessy Garzon NP Ordering Physician: Bessy Garzon NP Date of Service: 05/06/24 Procedure(s): CT chest wo IV con Accession Number(s): [id number] cc: Zainab Bernal MD; Bessy Garzon NP~ Report Number: [id number]: Total DLP = 171.00 mGy-cm EXAMINATION: CT CHEST WITHOUT CONTRAST CLINICAL INFORMATION: Hypoxemia. COMPARISON: Chest radiograph 02/27/2024. TECHNIQUE: Multidetector volumetric CT imaging of the chest was done. Axial MIP volume rendering provided. Sagittal and coronal reformatted images were obtained. This CT examination was performed using dose optimization techniques as appropriate, variously including the following: *Automated exposure control *Adjustment of mA and/or kV according to patient size (this includes techniques or standardized protocols for targeted exams where dose is matched to indication/reason for exam; i.e. extremities or head) *Use of iterative reconstruction technique FINDINGS: LUNGS: Central airways are patent. Streaky atelectasis in the right middle lobe, and bilateral lower lobes. Triangular pleural-based opacity in the lingula also favored to represent atelectasis. No focal consolidation. No suspicious pulmonary nodule. MEDIASTINUM: Heart is normal in size. No pericardial effusion. The thoracic aorta is nonaneurysmal. Mild aortic calcifications. CORONARY ARTERY CALCIFICATION: Present, mild. PLEURA: There is no pleural effusion. AXILLA: Few subcentimeter in short axis left subclavian lymph nodes which are not pathologic by size criteria. No enlarged axillary or internal mammary lymph nodes. UPPER ABDOMEN: Small diverticulum seen in relation to the distal duodenum, 3:58. Partially visualized simple left renal parapelvic cysts, for which no dedicated follow-up imaging is required. OSSEOUS STRUCTURES: No acute or suspicious osseous abnormality. Mild degeneration's of the visualized spine. CT/CT chest wo IV con IMPRESSION: 1. Scattered areas of atelectasis. No focal consolidation. 2. No enlarged lymph nodes in the chest. Electronically signed by: Thomas Desai MD 06/01/2024 07:43 PM [facility] [place] Dictated By: Thomas Desai Signed By: <Electronically signed by Thomas Desai in OV> 06/01/241942 DD/ 0836 TD/TT: 05/06/24 0842 Cath Lab Tech: Assessment & Plan Assessment & Plan (1) Asthma: Code(s): J45.909 - Unspecified asthma, uncomplicated Category: Medical (2) Chronic cough: Code(s): R05.3 - Chronic cough Category: Medical (3) Dyspnea on exertion: Code(s): R06.09 - Other forms of dyspnea Category: Medical (4) Atelectasis: Code(s): J98.11 - Atelectasis Category: Medical Plan Reviewed chest CT which revealed scattered atelectasis otherwise no significant findings. Will repeat in 6 months to ensure resolution of atlectasis. Patient has been using albuterol MDI with good effect, however infrequently. Discussed trialing an ICS/LABA however she would like to hold off at this time. She is aware if she would like to proceed to call office. All questions were answered and patient is in agreement of plan. Will follow-up in 6 months or sooner if needed. Orders: Orders CT chest wo IV con 4 Months J98.11 - Atelectasis Coding Level of Care Code Est Pt Level 4 (70563) Diagnoses Asthma J45.909 Chronic cough R05.3 Dyspnea on exertion R06.09 Atelectasis J98.11
[2024-07-13 10:35] VITALS: BP 118/68; PULSE 86; O2SAT 95; BMI 30.1
== END 2024-07-13 11:55 | disposition home or self-care (01) ==
PROVIDERS: PCP Internal Medicine; Visit Provider Nurse Practitioner Family
DX: J45.909 Unspecified asthma, uncomplicated (principal); R05.3 Chronic cough; R06.09 Other forms of dyspnea; J98.11 Atelectasis
CPT/HCPCS: 99214

== ENCOUNTER → 2024-07-13 10:27 | Outpatient (BNVA) | payer MEDICARE, SELFPAY | PROVIDERS: PCP Internal Medicine; Visit Provider Nurse Practitioner Family | DX: J45.909 Unspecified asthma, uncomplicated (principal); J98.11 Atelectasis; R05.3 Chronic cough; R06.09 Other forms of dyspnea | CPT/HCPCS: 99212 ==

== ENCOUNTER 2024-11-05 08:20 | Outpatient (REF) | payer MEDICARE, SELFPAY ==
--- NOTE | ~2024-11-05 | CT_ITS ---
CLINICAL HISTORY: J98.11 - Atelectasis CT chest without contrast Comparison: None provided Findings: There are mild coronary artery calcifications. The visualized thyroid and mediastinum are unremarkable. There is mild subsegmental atelectasis in the lower lobes and lingular segment. There is no focal pneumonia. There may be left renal parapelvic cysts. No acute fractures. IMPRESSION: There is mild subsegmental atelectasis in the lower lobes and lingular segment. This document has been electronically signed by: Kamaljit Serrano MD on 11/05/2024 12:32:43
== END 2024-11-05 08:21 | disposition home or self-care (01) ==
LOC: HO.CT 08:20
PROVIDERS: PCP Internal Medicine; Visit Provider Nurse Practitioner Family
DX: J98.11 Atelectasis (principal)
CPT/HCPCS: 71250

== ENCOUNTER 2024-12-16 12:16 | Outpatient (AMB) | payer MEDICARE, SELFPAY ==
[2024-12-16 12:31] VITALS: BP 120/78; PULSE 80; RESP 18; TEMP 36.2; O2SAT 94; BMI 29.8
--- NOTE | 2024-12-16 12:31 | A.OFFVIS_ITS ---
Intake Vital Signs 12/16/24 12:31 Height 5 ft 4 in Weight 173 lb 8 oz BMI 29.8 BP 120/78 Blood Pressure Location Lt brachial Position Sitting Respiration 18 Pulse 80 Pulse Source Pulse Oximeter Temp 97.1 F Temp Source Temporal Artery Scan Pulse Oximetry (%) 94 Oxygen Delivery Method Room Air Intake Visit Reasons: AWV Allergies venom-honey bee Allergy (Intermediate, Verified 12/16/24 12:34) swelling sulfamethoxazole (From Bactrim) Adverse Reaction (Intermediate, Verified 0 12/16/24 12:34) nausea trimethoprim (From Bactrim) Adverse Reaction (Intermediate, Verified 12/16/24 12:34) nausea estradiol (From Vagifem) Adverse Reaction (Unknown, Verified 12/16/24 12:34) rash Medication List - Last Reconciled 12/16/24 by Zainab Bernal MD albuterol sulfate 90 mcg/actuation 2 puffs inhalation Q4-6H PRN aspirin 81 mg PO DAILY atorvastatin 40 mg PO DAILY 90 days cholecalciferol (vitamin D3) 50 mcg PO DAILY cyanocobalamin (vitamin B-12) 1,000 mcg PO DAILY isosorbide mononitrate ER 30 mg PO DAILY levothyroxine 88 mcg PO QAM metoprolol succinate ER 100 mg PO DAILY multivitamin,[id number] (Complete Multivitamin tablet) 1 tab PO DAILY HPI AWV HPI Details [facility] pulmonary [facility] cardiology Dr. Pedraza gastroenterology helps her Dermatology, [facility] Medical History CAD (coronary artery disease) Medicare annual wellness visit, initial Colon cancer screening Colonoscopy refused Moderate tricuspid regurgitation Hypersomnia Osteopenia Impaired glucose tolerance Graves disease Hypertension Obesity (BMI 30-39.9) Hypothyroid Surgical History Hx of colonoscopy History of eye surgery History of oral surgery History of tonsillectomy History of tubal ligation Family History Father Colon cancer Mother CAD (coronary artery disease) Myocardial infarction Paternal Aunt Myocardial infarction Sister Diabetes Hypertension Social History (Updated 12/16/24 @ 12:54 by Zainab Bernal MD) Housing: House Are you a primary healthcare science specialist to a significant other at home: No Do you presently have visiting nurse or other home services: No Alcohol intake: current Alcohol intake frequency: holidays/special occasions only Comment: holiday 1 drink Patient Tobacco Use Status: Former Tobacco user Tobacco use type: Cigarette Years Smoked: 15 years old e-Cigarette/Vaping Use: Never Used Second Hand Smoke Exposure: No service: No Current occupational status: retired Cognitive needs: No Hearing needs: No Vision needs: Yes (glasses) Questionnaire Medicare Wellness Checkup [age] What gender do you identify with?: female During the past 4 weeks, how much have you been bothered by emotional problems such as feeling anxious, depressed, irritable, sad or downhearted, and blue?: not at all During the past 4 weeks, has your physical & emotional health limited your social activities with family, friends, neighbors, or groups?: not at all During the past 4 weeks, how much bodily pain have you generally had?: mild pain During the past 4 weeks, was someone available to help you if you needed & wanted help?: yes, as much as I wanted During the past 4 weeks, what was the hardest physical activity you could do for at least 2 minutes?: moderate Can you get to places out of walking distance without help? (For eg., can you travel alone on buses, taxis or drive your car?): Yes Can you go shopping for groceries or clothes without someone's help?: Yes Can you prepare your own meals?: Yes Can you do your housework without help?: Yes Because of any health problems, do you need the help of another person with your personal care needs such as eating, bathing, dressing or getting around the house?: No Can you handle your own money without help?: Yes During the past 4 weeks, how would you rate your health in general?: very good During the past 4 weeks how have things been going for you?: pretty well Are you having difficulties driving your car?: no Do you always fasten your seat belt when you are in a car?: no During past 4 weeks, have you been bothered by the following: never: Sexual problems?, Trouble eating well? and Problems using the telephone?, sometimes: Teeth or denture problems?, often: Falling or dizzy when standing up and always: Tiredness or fatigue? Have you fallen 2 or more times in the past year?: Yes Are you afraid of falling?: No Are you a smoker?: no During the past 4 weeks, how many drinks of wine, beer, or other alcoholic beverages did you have?: 1 drink or less per week Do you exercise for about 20 minutes 3 or more times a week?: yes, all the time Have you been given information to help with the following?: no: Hazards in your house that might hurt you? and no: Keeping track of your medications? How often do you have trouble taking medicines the way you have been told to take them?: I always take medicine as prescribed How confident are you that you can control & manage most of your health problems?: very confident What is your race?: White PHQ-9 Over the last 2 weeks, how often have you been bothered by any of the following problems? 1. Little interest or pleasure in doing things: not at all 2. Feeling down, depressed, or hopeless: not at all 3. Trouble falling or staying asleep, or sleeping too much: nearly every day 4. Feeling tired or having little energy: nearly every day 5. Poor appetite or overeating: not at all 6. Feeling bad about yourself - or that you are a failure or have let yourself or your family down: not at all 7. Trouble concentrating on things, such as reading the newspaper or watching television: not at all 8. Moving or speaking so slowly that other people could have noticed. Or the opposite - being so fidgety or restless that you have been moving around a lot more than usual: not at all 9. Thoughts that you would be better off or of hurting yourself in some way: not at all Total score: 6 Depression Screening Interpretation: Positive Depression Screening Done: Yes 17115 - PHQ-9 Billing: Yes Source: Developed by Drs. Edvin Phillip, Yamilet Rivera, Micky Deng and colleagues, with an educational radha from [employer]. Review of Systems Const Denies poor appetite and Denies weakness Eyes Denies no additional complaints ENT Reports Normal hearing present, Denies dizziness, Denies nasal congestion, Denies tinnitus and Denies sore throat Card Denies chest pain, Denies syncope, Denies rapid heart rate and Denies dyspnea Resp Denies cough and Denies dyspnea GI Denies change in stool character, Reports constipation, Denies diarrhea, Denies nausea and Denies vomiting Denies urinary frequency, Denies difficulty voiding and Denies dysuria Neuro Reports Normal hearing present, Denies confusion, Denies dizziness, Denies syncope and Denies weakness Psych Denies confusion Physical Exam Vital Signs: Last Vital Signs Temp 97.1 F 12/16/24 12:31 Pulse 80 12/16/24 12:31 Resp 18 12/16/24 12:31 BP 120/78 12/16/24 12:31 Pulse Ox 94 12/16/24 12:31 Oxygen Delivery Method Room Air 12/16/24 12:31 BMI result Body Mass Index 29.8 Const General: No confusion Orientation/consciousness: No confusion HEENT Head: Yes normocephalic Ears: external ears normal and TM's normal bilaterally Face and sinus: Yes normal facial exam Mouth: moist mucous membranes Throat: Yes tonsils normal Eyes Conjunctivae: conjunctivae normal Pupils: Equal, round and reactive pupils present and Pupil accommodation reflex normal Direct Ophthalmoscopy: normal light reflex Neck Neck: No lymphadenopathy Thyroid: Thyroid normal Chest Chest palpation & inspection: normal inspection of the chest Resp Effort & Inspection: normal respiratory effort and no audible wheezes Auscultation: clear to auscultation bilaterally, no crackles, no wheezes and lung sounds not diminished Cardio Rate: regular rate Rhythm: regular rhythm Peripheral pulses: radial pulses present and dorsalis pedis present GI Palpation (GI): no masses Auscultation: normal bowel sounds and normoactive bowel sounds Rectal Exam - Female: deferred Skin General skin exam: no rashes or lesions noted Rashes: no rashes Neuro General: No confusion Cranial nerves: Yes Equal, round and reactive pupils present and Yes Normal hearing present Cognition (Neuro): normal cognition Gait exam (Neuro): Normal gait present Motor exam (neuro): 5/5 motor strength present throughout Deep tendon reflexes (DTR's): Right brachioradialis reflex intensity grade: 2+, Left brachioradialis reflex intensity grade: 2+, Right patellar reflex intensity grade: 2+ and Left patellar reflex intensity grade: 2+ Extrem General: No edema Assessment & Plan Assessment & Plan (1) Medicare annual wellness visit, subsequent: Code(s): Z00.00 - Encounter for general adult medical examination without abnormal findings Plan: Patient is advised to eat healthy, keep well hydrated, keep active and have adequate sleep. (2) Impaired glucose tolerance: Code(s): R73.02 - Impaired glucose tolerance (oral) Plan: Decrease the amount of carbohydrate intake, pasta, bread, rice and potatoes are all sugar and that is aside from all the sweet stuff, remember that fruits are good but they are Sweet also. (3) Hypertension: Code(s): I10 - Essential (primary) hypertension Qualifiers: Hypertension type: essential hypertension Qualified Code(s): I10 - Essential (primary) hypertension Plan: Continue with blood pressure medication. Decrease salt intake and exercise patient is taking metoprolol 10 mg 100 mg once a day (4) CAD (coronary artery disease): Comment: April 2023 Code(s): I25.10 - Atherosclerotic heart disease of [place] coronary artery without angina pectoris Plan: Control the cholesterol, weight, blood pressure, diabetes on aspirin (5) Hypercholesterolemia: Code(s): E78.00 - Pure hypercholesterolemia, unspecified Plan: Avoid fried foods, chicken skin, eggs, butter margarine, pastries and meat. Be it pork or beef they have a lot of cholesterol LDL goal of less than 70 and triglyceride of less than 150 on atorvastatin 40 mg once a day (6) Hypothyroid: Code(s): E03.9 - Hypothyroidism, unspecified Qualifiers: Hypothyroidism type: acquired Qualified Code(s): E03.9 - Hypothyroidism, unspecified Plan: On thyroid medication advised repeat test (7) Osteopenia: Comment: July 2022 Code(s): M85.80 - Other specified disorders of bone density and structure, unspecified site Plan: Patient is reminded about bone density (8) Asthma: Code(s): J45.909 - Unspecified asthma, uncomplicated Plan: Patient is followed up by Pulmonary. Recent CAT scan for atelectasis. Continue with the inhalers as needed (9) Breast cancer screening by mammogram: Code(s): Z12.31 - Encounter for screening mammogram for malignant neoplasm of breast Plan: Reminded about mammogram Plan History of Present Illness The patient is a 69-year-old female presenting for an annual wellness visit. She has a history of obesity, hypertension, hypothyroidism, and impaired glucose tolerance. Her blood pressure is well-controlled with metoprolol, and she is currently on thyroid medication. Her recent hemoglobin A1c was 6.4, indicating impaired glucose tolerance, with previous readings showing a slight increase from 6.2. The patient has osteopenia, with the last bone density test conducted in July 2022. She is due for a repeat bone density screening. She has a history of coronary artery disease and hypercholesterolemia, managed with atorvastatin and aspirin. Her LDL cholesterol was last recorded at 66 mg/dL. The patient has a history of tubular adenoma of the colon, with her screenings up to date until August 2023. She reports a diagnosis of asthma, managed with albuterol as needed, and has been advised to use a controller inhaler if symptoms persist. She experiences dyspnea on exertion, particularly in hot weather or when climbing stairs. The patient has a history of hypoxemia and is followed by a combat control. She reports hearing loss, confirmed by an long distance billing operator, but has opted not to pursue hearing aids at this time. The patient has Graves' disease with associated eye disease, previously managed by a specialist who has since retired. Health Maintenance - Mammogram and bone density screening are due - Blood work including cholesterol and thyroid function tests are pending - Advised on diet and exercise for weight management and cardiovascular health - Discussed the benefits of the shingles vaccine Social History - Reports occasional alcohol consumption, limited to special occasions such as birthdays and [place], with a maximum of one drink per occasion - Denies tobacco use - Reports difficulty with hearing, confirmed by an long distance billing operator, but has chosen not to pursue hearing aids - Engages in regular exercise but experiences dyspnea on exertion, particularly in hot weather or when climbing stairs Review of Systems - General: Reports weight loss of 4 pounds - Cardiovascular: Reports palpitations, denies chest pain or syncope - Respiratory: Reports dyspnea on exertion, denies cough or wheezing - Neurological: Reports hearing loss, denies headaches or dizziness - Gastrointestinal: Denies nausea, vomiting, or dysphagia Physical Exam General: Cooperative, healthy appearing, comfortable, no acute distress and well developed Orientation: Patient oriented x3 Limitations: No limitations Head: Normal to inspection Ears: Hearing not good Nose: Normal external nose present Face and sinus: Normal facial exam Eyes: Appearance normal, both eyes and all related structures Neck: Normal visual inspection and Yes full ROM Respiratory: Mild subsegmental atelectasis in the lower lobes and lingular segment. Normal respiratory effort and able to speak in complete sentences. Clear to auscultation bilaterally Cardiovascular: Regular rate and rhythm. Normal S1 and S2. Some mild problems on some of the valves, some regurgitation GI: Normal to inspection. Soft to palpation and nontender Skin: No rashes or lesions noted Neuro: Patient oriented x3 Extremities: Normal to inspection Results - Labs: Hemoglobin A1c 6.4, LDL cholesterol 66 mg/dL, electrolytes normal, renal and liver function stable - Imaging: Echocardiogram showing normal ejection fraction 55-60%, normal diastolic function, trace mitral regurgitation, moderate tricuspid regurgitation - Imaging: CT scan of the chest showing mild subsegmental atelectasis and mild coronary artery calcifications Plan The patient will continue with her current medications, including metoprolol for hypertension and atorvastatin for hypercholesterolemia, with a goal to maintain LDL cholesterol below 100 mg/dL. She is advised to follow a diet low in sugar and saturated fats, and to increase physical activity to aid in weight management and improve cardiovascular health. For her impaired glucose tolerance, regular monitoring of blood glucose levels and hemoglobin A1c is recommended, with a focus on dietary modifications to prevent progression to diabetes. The patient is reminded to schedule her mammogram and bone density screening, as both are due. Her asthma management includes the use of albuterol as needed, and she is encouraged to use a controller inhaler if symptoms persist. She is advised to continue follow-up with her combat control for her hypoxemia and any respiratory concerns. The patient is informed about the benefits of the shingles vaccine and is encouraged to receive it at her convenience. Patient was informed and verbally consented to the use of an ambient scribe for clinic note documentation during this visit. Discussion Notes During the visit, I discussed the importance of maintaining a healthy lifestyle, including a balanced diet and regular exercise, to manage her weight and cardiovascular health. We reviewed her current medications and the need for regular monitoring of her blood glucose levels and hemoglobin A1c to prevent progression to diabetes. I emphasized the importance of scheduling her overdue mammogram and bone density screening. We also discussed the benefits of the shingles vaccine, and I encouraged her to receive it at her convenience. Patient Instructions - Continue taking your medications as prescribed, including metoprolol and atorvastatin. - Follow a diet low in sugar and saturated fats, and increase physical activity. - Monitor your blood glucose levels regularly and follow up on hemoglobin A1c tests. - Schedule your mammogram and bone density screening as soon as possible. - Use your albuterol inhaler as needed and consider using a controller inhaler if symptoms persist. - Follow up with your combat control for any respiratory concerns. - Consider receiving the shingles vaccine at your convenience. Orders: Orders XR DEXA axial skeleton Today M81.0 - Age-related osteoporosis without current pathological fracture, M85.80 - Other specified disorders of bone density and structure, unspecified site MM tomosynthesis screening BI Today Z12.31 - Encounter for screening mammogram for malignant neoplasm of breast Medications: Changed From metoprolol succinate ER 100 mg PO DAILY To metoprolol succinate ER 50 mg PO DAILY 90 tabs 0RF Quality Reporting (2019) Depression/Bipolar (159/160/161/177) PHQ-9: Total score: 6 Coding Level of Care Code Medicare Subsequent (G0439) Diagnoses Medicare annual wellness visit, subsequent Z00.00 Impaired glucose tolerance R73.02 Essential hypertension I10 Hypertension type: essential hypertension CAD (coronary artery disease) I25.10 Hypercholesterolemia E78.00 Acquired hypothyroidism E03.9 Hypothyroidism type: acquired Osteopenia M85.80 Asthma J45.909 Breast cancer screening by mammogram Z12.31 Additional Codes PHQ-9 - 23010 - PHQ-9 Billing: Yes ([id number])
--- OUTSIDE RECORDS SUMMARY | 2024-12-16 12:57 | XMS_ITS | Clinical Summary ---
Author Organization [facility] Address [address] [place] [id number] Phone Care Team Providers Care Instructor Dancing Name Role Phone Zainab Bernal MD Primary Care Provider [phone] Allergies Active Allergy Reactions Criticality Noted Date Comments Bee Pollen 01/22/2023 Medications aspirin 81 MG EC tablet Take 1 tablet by mouth every morning. 08/15/2024 Active atorvastatin (LIPITOR) 40 MG tablet Take 1 tablet by mouth every morning. 10/17/2024 Active cyanocobalamin, vitamin B-12, 1000 MCG tablet Take 1 tablet by mouth every morning. 09/29/2024 Active isosorbide mononitrate (IMDUR) 30 MG 24 hr tablet Take 30 mg by mouth daily. Active levothyroxine (SYNTHROID, LEVOTHROID) 88 MCG tablet Take 88 mcg by mouth every morning. Active metoprolol succinate (TOPROL-XL) 50 MG 24 hr tablet Take 100 mg by mouth daily. Active ALBUTEROL INHL Take 90 mcg by mouth daily as needed. Active cholecalciferol (VITAMIN D3) 2,000 unit tablet Take 2,000 Units by mouth daily. Active Active Problems Problem Noted Date Diagnosed Date Atherosclerosis of coronary artery 10/26/2024 Assessment & Plan (10/26/2024 7:46 AM EDT): She does have some CAT scan proven coronary disease but no intervention is indicated at the present time she just needs very aggressive risk factor modification Pure hypercholesterolemia 10/26/2024 Assessment & Plan (10/26/2024 7:46 AM EDT): She is on high intensity statin therapy ideally LDL should be less than 70 and preferably less than 55 mg/dL. I have ordered her some fasting lipids and an A1c. Benign essential hypertension 10/26/2024 Assessment & Plan (10/26/2024 7:46 AM EDT): Blood pressure and heart rate are bit high I am just going to increase her metoprolol to 100 mg in the evening time Palpitations 10/26/2024 Assessment & Plan (10/26/2024 7:46 AM EDT): No palpitations at this time we have ordered her an echocardiogram Encounters Date Type Department Care Team Description 11/25/2024 9:09 AM EDT - 11/25/2024 11:59 PM EDT Hospital Encounter [facility] [address] [place] [address] Orlin Alvares, DO Discharge Disposition: Home or Self Care 11/25/2024 8:06 AM EDT - 11/25/2024 9:08 AM EDT Hospital Encounter [facility] [place] [address] Orlin Alvares, DO Discharge Disposition: Home or Self Care 10/26/2024 7:30 AM EDT Office Visit [facility] [address] [place] [address] Dr [address] Floor, [address] [place] [address] rOlin Alvares, DO Benign essential hypertension (Primary Dx); Palpitations; Atherosclerosis of sycuan coronary artery of sycuan heart without angina pectoris; Pure hypercholesterolemia 10/26/2024 Procedure Pass Echo Lab [facility] [place] [address] from Last 3 Months Social History Tobacco Use Types Packs/Day Years Used Date Smoking Tobacco: Never Smokeless Tobacco: Never Tobacco Cessation:Counseling Given: Not Answered Alcohol Use Standard Drinks/Week Comments Not Currently 0 (1 standard drink = 0.6 oz pur e alcohol) Education Answer Date Recorded Are you interested in more education? Not on jaret e 01/22/2023 Are you concerned about learning? Not on file 01/22/2023 No 01/22/2023 No 01/22/2023 Digital Access Answer Date Recorded No 01/22/2023 No 01/22/2023 Reliable internet access at home? Not on file 01/22/2023 Device with a working camera? Not on file Intimate Partner Violence Answer Date R ecorded Are you denied basic needs s uch as food, clothing, or medical care? No 01/22/2023 In the past 12 months have y ou been in a relationship with a person who hurts, threatens, or tries to control you? No 01/22/2023 Are you denied basic needs s uch as food, clothing, or medical care? No 01/22/2023 In the past 12 months have y ou been in a relationship with a person who hurts, threatens, or tries to control you? No 01/22/2023 Comments Unknown Sex and Gender Information Value Date Recorded Sex Assigned at Female 01/22/2023 9:14 AM EDT Legal Sex Female 9:08 AM EDT Gender Identity Female 01/22/2023 9:14 AM EDT Sexual Orientation Not on file Last Filed Vital Signs Vital Sign Reading Time Taken Comments Blood Pressure 140/88 10/26/2024 7:27 AM EDT Pulse 84 10/26/2024 7:27 AM EDT Temperature 36.6 C (97.9 F) 01/22/2023 12:00 PM EDT Respiratory Rate 13 01/22/2023 12:00 PM EDT Oxygen Saturation 94% 10/26/2024 7:27 AM EDT Inhaled Oxygen Concentration - - Weight 79.4 kg (175 lb) 10/26/2024 7:27 AM EDT Height 162.6 cm (5' 4.02 ) 10/26/2024 7:27 AM ED T Body Mass Index 30.02 10/26/2024 7:27 AM EDT Plan of Treatment Upcoming Encounters Date Type Department Care Team (Late st Contact Info) Description 02/05/2025 8:00 AM EDT Office Visit [facility] [address] [facility] [address] Floor, [address] [place] [address] Orlin Alvares, 22 [facility] [address] [place] [id number] [email or web address] Health Maintenance Due Date Last Done Comments Adult Td,Tdap Booster 1955 TSH LEVEL 1955 DEPRESSION SCREENING 1965 HEPATITIS C SCREENING 1971 MAMMOGRAM 1993 COLOGUARD 1998 COLONOSCOPY 1998 COLORECTAL CANCER SCREENING 1998 FIT TEST 1998 FOBT 1998 SIGMOIDOSCOPY 1998 VIRTUAL COLONOSCOPY 1998 PNEUMOCOCCAL VACCINES (50+ y ears) (1 of 1 - PCV) 2003 ZOSTER VACCINES (1 of 2) 2003 OSTEOPOROSIS SCREENING INITI AL (ONE-TIME) 2018 COVID-19 VACCINE ( - 2023-2 5 season) 2024 BLOOD PRESSURE 04/27/2025 10/26/2024 RSV VACCINE (1 - 1-dose 75+ series) 01/05/2028 SMOKING STATUS SCREENING (On ce After 26 Yrs) Completed 10/26/2024 HEPATITIS A VACCINES Aged Out No long er eligible based on patient's age to complete this topic HIB VACCINES Aged Out No longer eligi ble based on patient's age to complete this topic MENINGOCOCCAL VACCINES (ACWY) Aged Out No longer eligible based on patient's age to complete this topic MENINGOCOCCAL VACCINES (B) Aged Out N o longer eligible based on patient's age to complete this topic Medical Devices Not on file Procedures Procedure Name Priority Date/Time Associated Diagnosis Comments BASIC METABOLIC PANEL Routine 11/25/2024 9:19 AM EDT Benign essential hypertension LFTS (HEPATIC PANEL) Routine 11/25/2024 9:19 AM EDT Benign essential hypertension LIPID PANEL Routine 11/25/2024 9:19 AM EDT Benign essential hypertension HEMOGLOBIN A1C Routine 11/25/2024 9:19 AM EDT Benign essential hypertension TTE COMPREHENSIVE Routine 11/25/2024 9:0 7 AM EDT Palpitations from Last 3 Months Results * (ABNORMAL) LFTs (hepatic panel) (11/25/2024 9:19 AM EDT) ALKALINE PHOSPHATASE 71 39 - 117 U/L [facility] TOTAL BILIRUBIN 0.7 0.0 - 1.2 mg/dL [facility] DIRECT BILIRUBIN 0.2 0.0 - 0.2 mg/dL [facility] Bilirubin (Indirect) 0.5 0 - 1.5 mg/dL [facility] AST 25 0 - 37 U/L [facility] ALT 19 0 - 40 U/L [facility] TOTAL PROTEIN 6.4(L) 6.5 - 8.0 g/dL [facility] ALBUMIN 3.9 3.9 - 4.8 g/dL [facility] GLOBULIN 2.5 1 - 4.8 g/dL [facility] A/G Ratio 1.56 1.00 - 4.80 RATIO [facility] Blood 11/25/2024 9:19 AM EDT 11/25/2024 9:30 AM EDT us Orlin Alvares DO LAB BLOOD ORDERABLES Final Re sult Performing Organization Address City/[facility]/ZIP Co de Phone Number [address] [address] * (ABNORMAL) Hemoglobin A1c (11/25/2024 9:19 AM EDT) HEMOGLOBIN A1C 6.4(H) 4.3 - 5.8 % [facility] Blood 11/25/2024 9:19 AM EDT 11/25/2024 9:29 AM EDT us Orlin Duqueo DO LAB BLOOD ORDERABLES Final Re sult Performing Organization Address City/[facility]/ZIP Co de Phone Number [address] [address] * (ABNORMAL) Lipid panel (11/25/2024 9:19 AM EDT) Pathologist [facility] HDL 44 mg/dL [facility] Comment: Interpretation <40 mg/dL: Low HDL cholesterol (major risk factor for CHD) Greater than or equal to 60 mg/dL: High HDL cholesterol ( negative risk factor for CHD) HDL - cholesterol is affected by a number of factors, e.g. smoking, excerise, hormones, sex and age. CHOLESTEROL 121 0 - 240 mg/dL [facility] TRIGLYCERIDES 94 30 - 160 mg/dL [facility] LDL 58 50 - 129 mg/dL [facility] Comment: LDL levels in terms of risk for coronary heart disease: <100 mg/dL: Optimal 100-129 mg/dL: Near or above optimal 130-159 mg/dL: Borderline high 160-189 mg/dL: High >190 mg/dL: Very High CARDIAC RISK RATIO 2.8(L) 3.3 - 4.4 C [facility] Blood 11/25/2024 9:19 AM EDT 11/25/2024 9:30 AM EDT us Orlin Alvares DO LAB BLOOD ORDERABLES Final Re sult [facility] [address] [place] [address] * (ABNORMAL) Basic metabolic panel (11/25/2024 9:19 AM EDT) SODIUM 141 133 - 146 mmol/L [facility] CHLORIDE 105 96 - 108 mmol/L [facility] POTASSIUM 4.3 3.3 - 5.1 mmol/L [facility] CO2 28 21 - 35 mmol/L [facility] BUN 14 6 - 19 mg/dL [facility] CREATININE 0.70 0.5 - 1.5 mg/dL [facility] GLUCOSE 123(H) 70 - 99 mg/dL [facility] CALCIUM 9.2 8.4 - 10.3 mg/dL [facility] EGFR 92 >59 mL/min/1.7 3m2 [facility] Comment:Estimated glomerular filtration rate calculated using the CKD-EPI refit equation. ANION GAP 12 10 - 20 mmol/L [facility] Blood 11/25/2024 9:19 AM EDT 11/25/2024 9:30 AM EDT us Orlin Alvares DO LAB BLOOD ORDERABLES Final Re sult [address] [address] * TTE COMPREHENSIVE (11/25/2024 9:07 AM EDT) Height 163 cm Weight 79 kg Systolic BP 121 mmHg Diastolic BP 76 mmHg Interventricular Septum Thickness 10 6 - 11 mm Left Ventricle Internal Diameter End Diastole 46 37 - 52 mm Left Ventricle Internal Diameter End Systole 32 <35 mm Left Ventricular Outflow Tract Diameter 21.0 mm Left Ventricular Posterior Wall Thickness 8 6 - 11 mm Left Ventricle Ea Lateral Wave Speed 7.3 cm/s Left Ventricle Ea Septal Wave Speed 4.9 cm/s Ejection Fraction 66 50 - 75 Percent Left Atrium Dimension Anterior-Posterior 31 15 - 40 mm Aortic Valve Mean Gradient 5 mmHg Aortic Valve Time Velocity Integral 345.0 mm Aortic Valve Peak Velocity 1.5 m/s Aortic Valve Peak Gradient 9 mmHg Aortic Arch Diameter 30 mm Aortic Sinus Diameter 32 <40 mm Ascending Aorta Diameter 36 <36 mm Inferior Vena Cava Diameter 15 <21 mm Mitral Valve Deceleration Time 230 ms Left Ventricle A Wave Speed 68.6 cm/s Left Ventricle E Wave Speed 40.3 cm/s Mitral Valve Mean Gradient 1 mmHg Mitral Valve Peak Gradient 3 mmHg Mitral Valve Area Continuity Equation 2.60 cm2 Pulmonary Valve Peak Velocity 0.8 m/s Pulmonary Valve Peak Gradient 3 mmHg Right Ventricle Basal Diameter 36 25 - 41 mm Tricuspid Valve Peak Velocity 2.7 m/s Raw LV EF% 52 % MV E/E' Tissue Velocity Lateral 5.52 Relative Wall Thickness 0.35 0.22 - 0.42 MV E/A ratio 0.6 MV E/e' septal 8.22 Left Ventricle E/e' Average 6.9 Aortic Valve Prosthetic Peak Gradient 9 mmHg Aortic Valve Prosthetic Mean Gradient 5 mmHg Aorta Sinus Index by Height 1.96 cm/m Aorta Sinus CSA index by Height 4.93 cm2/m Asc Aorta CSA Index by Height 6.24 cm2/m Mitral Valve Prosthetic Peak Gradient 3 mmHg Mitral Valve Prosthetic Mean Gradient 1 mmHg Right Ventricle to Right Atrium Pressure Gradient 29 mmHg Right Ventricle Peak Systolic Pressure (Assuming RAP 10) 39 mmHg MGB CV ECHO TV RVSP (ASSUMING RAP OF 5) 34 mmHg RVSP (Exclusive of RAP) 29 mmHg Pulmonic Valve Prosthetic Peak Gradient 3 mmHg Echo E/Ea 8.22 Right Ventricle Peak Systolic Pressure 32 mmHg Right Ventricle TAPSE 18 >=17 mm Right Ventricle Pulse Doppler S Wave 11.0 >=9.5 cm/s Left Atrial Volume 12 mL Left Atrial Volume Index by Height 7 mL/m Right Atrium Area 12 cm2 Right Atrium Pressure Estimated 3 mmHg Anatomical Region Laterality Modality Heart Ultrasound Narrative 11/25/2024 12:03 PM EDT Images from the original result were not included. 1. Indication is palpitation of the study. This patient had a normal ejection fraction of 55 to 60%. Diastolic function is normal left ventricular thickness is normal and regional wall motion is all normal. 2. Normal RV size and function. 3. Trileaflet aortic valve is no evidence of aortic stenosis, the ascending aortic root measures 36 mm. 4. Trace mitral and moderate tricuspid insufficiency, the PA pressures 32 mmHg. 5. Normal pericardium and no prior echo available for comparison. Left Ventricle The left ventricle is normal in size. There is normal wall thickness. There is normal left ventricular systolic function. The LV ejection fraction is 55-60% (visually estimated). Simpsons biplane EF 62%. LV diastolic function appears within normal limits for age. Right Ventricle The right ventricle is normal in size. The RV basal dimension is 36 mm. There is normal right ventricular systolic function. TAPSE is 18 mm. RV S' wave is 11.0 cm/s. Left Atrium The left atrium is normal in size. Right Atrium The right atrium is normal in size. The right atrial area is 12 cm2. Mitral Valve There is mild thickening of both mitral leaflets. There is no mitral stenosis. There is trace mitral regurgitation. Tricuspid Valve The tricuspid valve appears normal. There is no tricuspid stenosis. There is moderate tricuspid regurgitation with a centrally directed jet. The RV systolic pressure was calculated at 32 mmHg (using TR peak velocity of 2.7 m/s and assuming an RA pressure of 3 mmHg). Aortic Valve The aortic valve is tricuspid. There is no aortic stenosis. There is trace to mild aortic regurgitation. The visualized portions of the thoracic aorta appear normal in size. Pulmonic Valve The pulmonic valve appears normal. There is no pulmonic stenosis. Pericardium There is no pericardial effusion. General Findings The image quality was fair (3). Technique(s) used in the evaluation: Multiplane, Color flow Doppler, Spectral Doppler and Epiaortic scan. Adequate windows include: parasternal, apical, subcostal and suprasternal. The predominant rhythm during the study was sinus. Patient tolerated the procedure well. IAS/IVS The interatrial septum appears normal. us Orlin Alvares DO CV ECHO ORDERABLES Final Resu lt from Last 3 Months Insurance [employer] MEDEX SUPPLEMENT MEDICARE PART A & B Care Teams Instructor Dancing Relationship Specialty Start Date End Date Zainab Bernal MD [address] [place] [phone] PCP - General Internal Medicine 01/22/23 Additional Source Comments The information contained in this document represents components of the legal health record. It is not the complete legal health record.[facility]
== END 2024-12-16 13:15 | disposition home or self-care (01) ==
LOC: HO.HMCH 12:16
PROVIDERS: PCP Internal Medicine; Visit Provider Internal Medicine
DX: Z00.00 Encounter for general adult medical examination without abnormal findings (principal); R73.02 Impaired glucose tolerance (oral); I10 Essential (primary) hypertension; I25.10 Atherosclerotic heart disease of native coronary artery without angina pectoris; E78.00 Pure hypercholesterolemia, unspecified; E03.9 Hypothyroidism, unspecified; M85.80 Other specified disorders of bone density and structure, unspecified site; J45.909 Unspecified asthma, uncomplicated; Z12.31 Encounter for screening mammogram for malignant neoplasm of breast

== ENCOUNTER → 2024-12-16 12:16 | Outpatient (BNVA) | payer MEDICARE, SELFPAY | PROVIDERS: PCP Internal Medicine; Visit Provider Internal Medicine | DX: Z00.00 Encounter for general adult medical examination without abnormal findings (principal); I10 Essential (primary) hypertension; I25.10 Atherosclerotic heart disease of native coronary artery without angina pectoris; R73.02 Impaired glucose tolerance (oral); E78.00 Pure hypercholesterolemia, unspecified; E03.9 Hypothyroidism, unspecified; J45.909 Unspecified asthma, uncomplicated; M85.80 Other specified disorders of bone density and structure, unspecified site | CPT/HCPCS: 96127 ==

== ENCOUNTER 2024-12-21 08:43 | Outpatient (AMB) | payer MEDICARE, SELFPAY ==
--- NOTE | 2024-12-21 08:18 | A.OFFVIS_ITS ---
Vital Signs 12/21/24 09:00 Height 5 ft 4 in Weight 175 lb 4.28 oz BMI 30.1 BP 119/63 Blood Pressure Location Rt brachial Position Sitting Respiration 18 Pulse 63 Pulse Source Pulse Oximeter Pulse Oximetry (%) 95 Oxygen Delivery Method Room Air Intake Visit Reasons: Hypoxemia Events Solutions Consultant Required: No Allergies venom-honey bee Allergy (Intermediate, Verified 12/16/24 12:34) swelling sulfamethoxazole (From Bactrim) Adverse Reaction (Intermediate, Verified 12/16/24 12:34) nausea trimethoprim (From Bactrim) Adverse Reaction (Intermediate, Verified 12/16/24 12:34) nausea estradiol (From Vagifem) Adverse Reaction (Unknown, Verified 12/16/24 12:34) rash HPI HPI Hypoxemia: Details: Amanda is a pleasant 69 year old female, former minimal smoker, quit 30+ years ago underlying asthma, CAD, HTN, and Grave's disease. She was initially referred by PCP for pulmonary evaluation for new onset hypoxia, lowest 87% at PCP office. Previously 6MWT was performed and patient did not require supplemental oxygen. Overnight oximetry performed which revealed 6 minutes of hypoxia, however she did not want to initiate nocturnal supplemental oxygen or CPAP therapy for mild MARGOT. At this time, she has noticed an increase in dyspnea and continues with oc casional cough. Denies wheezing or chest tightness. We had previously discussed albuterol MDI vs ICS/LABA and has been using albuterol PRN with good effect. She is interested in trialing ICS/LABA at this time. Prior chest CT 04/2024 revealed scattered areas of atelectasis and presents today to review [address]. She denies any visits to urgent care or hospitalizations related to respirat ory distress since the last visit. [facility] Medical History CAD (coronary artery disease) Medicare annual wellness visit, initial Colon cancer screening Colonoscopy refused Moderate tricuspid regurgitation Hypersomnia Osteopenia Impaired glucose tolerance Graves disease Hypertension Obesity (BMI 30-39.9) Hypothyroid Surgical History Hx of colonoscopy History of eye surgery History of oral surgery History of tonsillectomy History of tubal ligation Family History Father Colon cancer Mother CAD (coronary artery disease) Myocardial infarction Paternal Aunt Myocardial infarction Sister Diabetes Hypertension Social History (Updated 12/16/24 @ 12:54 by Zainab Bernal MD) Housing: House Are you a primary resident care spec to a significant other at home: No Do you presently have visiting nurse or other home services: No Alcohol intake: current Alcohol intake frequency: holidays/special occasions only Comment: holiday 1 drink Patient Tobacco Use Status: Former Tobacco user Tobacco use type: Cigarette Years Smoked: 15 years old e-Cigarette/Vaping Use: Never Used Second Hand Smoke Exposure: No service: No Current occupational status: retired Cognitive needs: No Hearing needs: No Vision needs: Yes (glasses) Review of Systems Const Denies chills, Denies excessive sweating, Denies fever(s), Denies headache(s) and Denies night sweats Eyes Denies dry eyes, Denies irritation and Denies itchy eyes ENT Reports Normal hearing present, Denies headache(s), Denies nasal congestion, Denies nasal discharge, Denies post nasal drip and Denies sore throat Card Denies chest pain, Denies chest pain at rest, Denies chest pain with activity, Denies claudication, Denies leg edema, Denies orthopnea and Denies paroxysmal nocturnal dyspnea Resp Denies chest congestion, Denies excessive phlegm production, Denies pain on inspiration, Denies pain with cough, Denies stridor and Denies wheezing Musc Denies myalgias Neuro Reports Normal hearing present and Denies headache(s) Endo Denies excessive sweating Pro/Lymph Denies lymphadenopathy Aller/Immun Denies itchy eyes, Denies seasonal rhinorrhea and Denies wheezing Physical Exam Vital Signs: Last Vital Signs Pulse 63 12/21/24 09:00 Resp 18 12/21/24 09:00 BP 119/63 12/21/24 09:00 Pulse Ox 95 12/21/24 09:00 Oxygen Delivery Method Room Air 12/21/24 09:00 BMI result Body Mass Index 30.1 Const General: cooperative, healthy appearing, comfortable, no acute distress, well developed and alert Orientation/consciousness: patient oriented x3 Limitations: no limitations HEENT Head: Yes normal to inspection, Yes normocephalic and Yes atraumatic Ears: hearing grossly normal bilaterally and external ears normal Eyes General: appearance normal, both eyes and all related structures Eyelids: Yes eyelids normal Sclerae: sclerae normal EOM: EOMs intact bilaterally Neck Neck: Yes normal visual inspection and Yes no lymphadenopathy Lymphatic: no lymphadenopathy noted Chest Chest palpation & inspection: normal inspection of the chest Resp Effort & Inspection: normal respiratory effort, able to speak in complete sentences, no audible wheezes, no cough, no stridor, not tachypneic, no tripod positioning and no use of accessory muscles Auscultation: clear to auscultation bilaterally Cardio Jugular venous distension: no JVD Rate: regular rate Rhythm: regular rhythm Skin Other: warm, dry General skin exam: no rashes or lesions noted Neuro General: patient oriented x3 Cranial nerves: Yes Normal hearing present Cognition (Neuro): normal cognition Gait exam (Neuro): Normal gait present Extrem General: Yes normal to inspection, Yes capillary refill normal, Yes no clubbing, cyanosis or edema and Yes no pedal edema Psych Appearance: grossly normal and well kempt Speech and movement: Normal speech and movement present and Clear speech present Affect: normal affect Attitude: cooperative Thought process: Normal thought process present Thought content: Normal thought content present Insight: Good insight present (Psych) Judgement: Good judgement present (Psych) Results Reviewed Results Reviewed: [place] [id number] CT Scan Report Signed Patient: Amanda De Oliveira MR#: [id number] : 1955 Acct:[id number] Age/Sex: 69 / F ADM Date: 11/05/24 Loc: HO.CT Attending Dr: Bessy Garzon NP Ordering Physician: Bessy Garzon NP Date of Service: 11/05/24 Procedure(s): CT chest wo IV con Accession Number(s): [id number] cc: Zainab Bernal MD; Bessy Garzon NP~ Report Number: [id number]: Total DLP = 158.00 mGy-cm CLINICAL HISTORY: J98.11 - Atelectasis CT chest without contrast Comparison: None provided Findings: There are mild coronary artery calcifications. The visualized thyroid and mediastinum are unremarkable. There is mild subsegmental atelectasis in the lower lobes and lingular segment. There is no focal pneumonia. There may be left renal parapelvic cysts. No acute fractures. IMPRESSION: There is mild subsegmental atelectasis in the lower lobes and lingular segment. This document has been electronically signed by: Kamaljit Serrano MD on 11/05/2024 12:32:43 Dictated By: Kamaljit Serrano MD Signed By: <Electronically signed by Kamaljit Serrano MD in OV> 11/05/24 1233 DD/ 1232 TD/TT: 11/05/24 1232 Off Track Betting Manager: Assessment & Plan Assessment & Plan (1) Asthma: Code(s): J45.909 - Unspecified asthma, uncomplicated Category: Medical (2) Chronic cough: Code(s): R05.3 - Chronic cough Category: Medical (3) Dyspnea on exertion: Code(s): R06.09 - Other forms of dyspnea Category: Medical (4) Atelectasis: Code(s): J98.11 - Atelectasis Category: Medical Plan Prior chest CT 04/2024 revealed scattered atelectasis otherwise no significant findings and repeat chest CT continues to reveal scattered atelecasis. Encouraged deep breathing and forceful coughing in addition to Breo and will repeat in one year to assess stability. All questions were answered and patient is in agreement of plan. Will follow-up in 6-8 weeks or sooner if needed. Orders: Orders CT chest wo IV con 10 Months J98.11 - Atelectasis Medications: New fluticasone furoate-vilanterol 100-25 mcg/dose (Breo Ellipta) 1 inh inhalation DAILY 60 ea 3RF Coding Level of Care Code Est Pt Level 4 (40089) Diagnoses Asthma J45.909 Chronic cough R05.3 Dyspnea on exertion R06.09 Atelectasis J98.11
[2024-12-21 09:00] VITALS: BP 119/63; PULSE 63; RESP 18; O2SAT 95; BMI 30.1
--- OUTSIDE RECORDS SUMMARY | 2024-12-21 09:05 | XMS_ITS | Clinical Summary ---
Author Organization [facility] Address [address] [place] [address] Phone Care Team Providers Care Doorkeeper Name Role Phone Zainab Bernal MD Primary Care Provider [phone] Allergies Active Allergy Reactions Criticality Noted Date [...] PM EDT Hospital Encounter [facility] [address] [place] [address] Orlin Alvares, DO Discharge Disposition: Home or Self Care 11/25/2024 8:06 AM EDT - 11/25/2024 9:08 AM EDT Hospital Encounter Echo Lab [place] [place] [address] Orlin Alvares, DO Discharge Disposition: Home or Self Care 10/26/2024 7:30 AM EDT Office Visit [facility] [address] [place] [address] Dr 3rd Floor, [address] [place] [address] Orlin Alvares, DO Benign essential hypertension (Primary Dx); Palpitations; Atherosclerosis of [place] coronary artery of [place] heart without angina pectoris; Pure hypercholesterolemia 10/26/2024 Procedure Pass Echo Lab [place] [place] [address] from Last 3 Months Social History Tobacco [...] Description 02/05/2025 8:00 AM EDT Office Visit [facility] [address] [facility] 3rd Floor, [address] [place] [address] Orlin Alvares, 22 [facility] [address] [place] [address] [email or web address] Maintenance Due Date Last Done Comments [...] ALKALINE PHOSPHATASE 71 39 - 117 U/L [facility] TOTAL BILIRUBIN 0.7 0.0 - 1.2 mg/dL [facility] DIRECT BILIRUBIN 0.2 0.0 - 0.2 mg/dL [facility] Bilirubin (Indirect) 0.5 0 - 1.5 mg/dL [facility] AST 25 0 - 37 U/L [facility] ALT 19 0 - 40 U/L [facility] TOTAL PROTEIN 6.4(L) 6.5 - 8.0 g/dL [facility] ALBUMIN 3.9 3.9 - 4.8 g/dL [facility] GLOBULIN 2.5 1 - 4.8 g/dL [facility] A/G Ratio 1.56 1.00 - 4.80 RATIO [facility] Blood 11/25/2024 9:19 AM EDT 11/25/2024 9:30 AM EDT us Orlin Alvares DO LAB BLOOD ORDERABLES Final Re sult Performing Organization Address City/[facility]/ZIP Co de Phone Number [address] [address] * (ABNORMAL) Hemoglobin A1c (11/25/2024 9:19 AM EDT) HEMOGLOBIN A1C 6.4(H) 4.3 - 5.8 % [facility] Blood 11/25/2024 9:19 AM EDT 11/25/2024 9:29 AM EDT us Orlin Duqueo DO LAB BLOOD ORDERABLES Final Re sult Performing Organization Address City/[facility]/ZIP Co de Phone Number [address] [address] * (ABNORMAL) Lipid panel (11/25/2024 9:19 AM EDT) Pathologist [facility] HDL 44 mg/dL [facility] Comment: Interpretation <40 mg/dL: Low HDL cholesterol (major risk factor for CHD) Greater than or equal to 60 mg/dL: High HDL cholesterol ( negative risk factor for CHD) HDL - cholesterol is affected by a number of factors, e.g. smoking, excerise, hormones, sex and age. CHOLESTEROL 121 0 - 240 mg/dL [facility] TRIGLYCERIDES 94 30 - 160 mg/dL [facility] LDL 58 50 - 129 mg/dL [facility] Comment: LDL levels in terms of risk for coronary heart disease: <100 mg/dL: Optimal 100-129 mg/dL: Near or above optimal 130-159 mg/dL: Borderline high 160-189 mg/dL: High >190 mg/dL: Very High CARDIAC RISK RATIO 2.8(L) 3.3 - 4.4 [facility] Blood 11/25/2024 9:19 AM EDT 11/25/2024 9:30 AM EDT us Orlin Alvares DO LAB BLOOD ORDERABLES Final Re sult [facility] [address] [place] [address] * (ABNORMAL) Basic metabolic panel (11/25/2024 9:19 AM EDT) SODIUM 141 133 - 146 mmol/L [facility] CHLORIDE 105 96 - 108 mmol/L [facility] POTASSIUM 4.3 3.3 - 5.1 mmol/L [facility] CO2 28 21 - 35 mmol/L [facility] BUN 14 6 - 19 mg/dL [facility] CREATININE 0.70 0.5 - 1.5 mg/dL [facility] GLUCOSE 123(H) 70 - 99 mg/dL [facility] CALCIUM 9.2 8.4 - 10.3 mg/dL [facility] EGFR 92 >59 mL/min/1.7 3m2 [facility] Comment:Estimated glomerular filtration rate calculated using the CKD-EPI refit equation. ANION GAP 12 10 - 20 mmol/L [facility] Blood 11/25/2024 9:19 AM EDT 11/25/2024 9:30 AM EDT us Orlin Alvares DO LAB BLOOD ORDERABLES Final Re sult [address] [address] * TTE COMPREHENSIVE (11/25/2024 9:07 AM EDT) [...] Resu lt from Last 3 Months Insurance [employer] MEDEX SUPPLEMENT MEDICARE PART A & B Care Teams Doorkeeper Relationship Specialty Start Date End Date Zainab Bernal MD [address] [place] [phone] PCP - General Internal Medicine 01/22/23 Additional Source Comments The information contained in this document represents components of the legal health record. It is not the complete legal health record.[facility]
== END 2024-12-21 09:20 | disposition home or self-care (01) ==
LOC: HO.HPS 08:44
PROVIDERS: PCP Internal Medicine; Visit Provider Nurse Practitioner Family
DX: J45.909 Unspecified asthma, uncomplicated (principal); R05.3 Chronic cough; R06.09 Other forms of dyspnea; J98.11 Atelectasis
CPT/HCPCS: 99214

== ENCOUNTER → 2024-12-21 08:43 | Outpatient (BNVA) | payer MEDICARE, SELFPAY | PROVIDERS: PCP Internal Medicine; Visit Provider Nurse Practitioner Family | DX: J45.909 Unspecified asthma, uncomplicated (principal); R05.3 Chronic cough; R06.09 Other forms of dyspnea; J98.11 Atelectasis; Z87.891 Personal history of nicotine dependence | CPT/HCPCS: 99212 ==

== ENCOUNTER 2025-02-08 08:49 | Outpatient (REF) | payer MEDICARE, SELFPAY ==
[2025-02-08 09:09] LABS: MANUAL DIFF FLAG NO
[2025-02-08 09:39] LABS: Hematocrit 40.6 % (37.0-47.0); Hemoglobin 14.0 g/dl (12.0-16.0); Imm Gran Abs Auto 0.01 X10*3/uL (0.00-0.03); Imm Gran Pct Auto 0.2 % (0.0-0.4); Lymphocytes Absolute Auto 1.3 X10*3/uL (1.2-4.9); Mean Corpuscular HGB Conc 34.5 g/dl (31.0-35.0); Mean Corpuscular Hemoglobin 31.3 pg (27.0-33.0); Mean Corpuscular Volume 90.8 fL (80.0-98.0); NRBC Abs Auto 0.000 X10*3/uL (0.0-0.012); NRBC Pct Auto 0.0 /100WBC (0.0-0.2); Platelet Count 243 X10*3/uL (160-400); Red Blood Count 4.47 X10*6/uL (4.20-5.50); White Blood Count 5.2 X10*3/uL (4.8-10.8)
[2025-02-08 09:44] LABS: Hemoglobin A1C 169.7352 umol/L
[2025-02-08 10:08] LABS: Alanine Aminotransferase 28 U/L (0-31); Albumin Level 4.2 g/dL (3.5-5.0); Alkaline Phosphatase 70 U/L (39-117); Anion Gap 9 (12-20); Aspartate Amino Transferase 26 U/L (5-31); Blood Urea Nitrogen 16 mg/dL (9-16); Calcium 9.2 mg/dL (8.4-10.2); Carbon Dioxide 27 mmol/L (22-29); Chloride 110 mmol/L (96-108); Cholesterol 119 mg/dL (<200); Estimated Glomerular Filt Rate > 60; HDL Cholesterol 45 mg/dL (>40); Potassium 4.1 mmol/L (3.3-5.1); Sodium 142 mmol/L (135-145); Total Protein 6.5 g/dL (6.5-8.0); Triglycerides 74 mg/dL (<150)
--- OUTSIDE RECORDS SUMMARY | 2025-02-08 10:14 | XMS_ITS | Encounter Summary ---
Author Organization [facility] Address [address] [place] [address] [place] [phone] Phone Care Team Providers Care Parking Enforcement Technician Name Role Phone Zainab Bernal MD Primary Care Provider [phone] Encounter Details Date Type Department Care Team (Late st Contact Info) Description 10/26/2024 Procedure Pass Echo Lab [place] [place] [address] Social History Tobacco Use Types Packs/Day Years Used Date Smoking Tobacco: Never Smokeless Tobacco: Never Alcohol Use Standard Drinks/Week Comments Not Currently [...] AM EDT Sexual Orientation Not on file documented as of this encounter Plan of Treatment Upcoming Encounters Date Type Department Care Team (Late st Contact Info) Description 03/02/2025 7:45 AM EDT Office Visit [facility] [address] [facility] 3rd Floor, [address] [place] [address] Orlin Alvares DO [address] [facility] [address] [place] [address] [email or web address] documented as of this encounter Visit Diagnoses Not on filedocumented in this encounter Care Teams Parking Enforcement Technician Relationship Specialty Start Date End Date Gabe, Zainab Cano MD [address] [place] [address] Drive [address] [place] [phone] PCP - General Internal Medicine 01/22/23 documented as of this encounter Additional Source Comments The information contained in this document represents components of the legal health record. It is not the complete legal health record.[facility]
--- OUTSIDE RECORDS SUMMARY | 2025-02-08 10:14 | XMS_ITS | Clinical Summary ---
Author Organization [facility] Address [address] [place] [address] Phone Care Team Providers Care Interventional Radiologist Name Role Phone Zainab Bernal MD Primary Care Provider Allergies Active Allergy Reactions Criticality Noted Date [...] Take 2,000 Units by mouth daily. Active valACYclovir (VALTREX) 1000 MG tablet Take 1 tablet (1,000 mg total) by mouth 3 (three) times a day for 7 days. 21 tablet 01/18/2025 01/26/20 25 Active Problems Problem Noted Date Diagnosed Date [...] Encounters Date Type Department Care Team Description 01/18/2025 6:26 PM EDT - 01/18/2025 6:36 PM EDT Emergency [facility] Emergency [address] [place] [address] Discharge Disposition: Home or Self Care 11/25/2024 9:09 AM EDT - 11/25/2024 11:59 PM EDT Hospital Encounter [facility] [address] [place] [address] Orlin Alvares, DO Discharge Disposition: Home or Self Care 11/25/2024 8:06 AM EDT - 11/25/2024 9:08 AM EDT Hospital Encounter Echo Lab [address] [place] [address] Orlin Alvares, DO Discharge Disposition: Home or Self Care 10/26/2024 Procedure Pass Echo Lab [address] [place] [address] from Last 3 Months Social History Tobacco [...] as food, clothing, or medical care? No 01/18/2025 In the past 12 months have y ou been in a relationship with a person who hurts, threatens, or tries to control you? No 01/18/2025 Are you denied basic needs s uch as food, clothing, or medical care? No 01/18/2025 In the past 12 months have y ou been in a relationship with a person who hurts, threatens, or tries to control you? No 01/18/2025 Comments Unknown Sex and Gender Information Value Date Recorded Sex Assigned at Female 01/22/2023 9:14 AM EDT Legal Sex Female 9:08 AM EDT Gender Identity Female 01/22/2023 9:14 AM EDT Sexual Orientation Not on file Last Filed Vital Signs Vital Sign Reading Time Taken Comments Blood Pressure 138/81 01/18/2025 6:21 PM EDT Pulse 80 01/18/2025 6:21 PM EDT Temperature 36.1 C (97 F) 01/18/2025 6:21 PM EDT Respiratory Rate 20 01/18/2025 6:21 PM EDT Oxygen Saturation 94% 01/18/2025 6:21 PM EDT Inhaled Oxygen Concentration - - Weight 79.4 kg (175 lb) 01/18/2025 6:21 PM EDT Height 160 cm (5' 3 ) 01/18/2025 6:21 PM EDT Body Mass Index 31 01/18/2025 6:21 PM EDT Plan of Treatment Upcoming Encounters Date Type Department Care Team (Late st Contact Info) Description 03/02/2025 7:45 AM EDT Office Visit [facility] [address] [place] [address] Floor, [address] [place], [place] [address] ArcOrlin boogie DO [address] [address] [email or web address] Maintenance Due Date Last Done Comments [...] 2003 OSTEOPOROSIS SCREENING INITI AL (ONE-TIME) 2018 INFLUENZA VACCINE (#1) 2024 COVID-19 VACCINE ( - 2023-2 5 season) 2025 BLOOD PRESSURE 04/27/2025 10/26/2024 RSV VACCINE (1 [...] ALKALINE PHOSPHATASE 71 39 - 117 U/L [facility] TOTAL BILIRUBIN 0.7 0.0 - 1.2 mg/dL [facility] DIRECT BILIRUBIN 0.2 0.0 - 0.2 mg/dL [facility] Bilirubin (Indirect) 0.5 0 - 1.5 mg/dL [facility] AST 25 0 - 37 U/L [facility] ALT 19 0 - 40 U/L [facility] TOTAL PROTEIN 6.4(L) 6.5 - 8.0 g/dL [facility] ALBUMIN 3.9 3.9 - 4.8 g/dL [facility] GLOBULIN 2.5 1 - 4.8 g/dL [facility] A/G Ratio 1.56 1.00 - 4.80 RATIO [facility] Blood 11/25/2024 9:19 AM EDT 11/25/2024 9:30 AM EDT us Orlin Alvares DO LAB BLOOD ORDERABLES Final Re sult Performing Organization Address [facility] Co de Phone Number [address] [phone] * (ABNORMAL) Hemoglobin A1c (11/25/2024 9:19 AM EDT) Pathologist [facility] HEMOGLOBIN A1C 6.4(H) 4.3 - 5.8 % [facility] Blood 11/25/2024 9:19 AM EDT 11/25/2024 9:29 AM EDT us Orlin Alvares DO LAB BLOOD ORDERABLES Final Re sult Performing Organization Address [facility] Co de Phone Number [address] [phone] * (ABNORMAL) Lipid panel (11/25/2024 9:19 AM EDT) HDL 44 mg/dL [facility] Comment: Interpretation <40 mg/dL: Low HDL cholesterol (major risk factor for CHD) Greater than or equal to 60 mg/dL: High HDL cholesterol ( negative risk factor for CHD) HDL - cholesterol is affected by a number of factors, e.g. smoking, excerise, hormones, sex and age. CHOLESTEROL 121 0 - 240 mg/dL [facility] TRIGLYCERIDES 94 30 - 160 mg/dL [facility] LDL 58 50 - 129 mg/dL [facility] Comment: LDL levels in terms of risk for coronary heart disease: <100 mg/dL: Optimal 100-129 mg/dL: Near or above optimal 130-159 mg/dL: Borderline high 160-189 mg/dL: High >190 mg/dL: Very High CARDIAC RISK RATIO 2.8(L) 3.3 - 4.4 [facility] Blood 11/25/2024 9:19 AM EDT 11/25/2024 9:30 AM EDT us Orlin Alvares DO LAB BLOOD ORDERABLES Final Re sult [facility] [address] [place] [address] * (ABNORMAL) Basic metabolic panel (11/25/2024 9:19 AM EDT) SODIUM 141 133 - 146 mmol/L [facility] CHLORIDE 105 96 - 108 mmol/L [facility] POTASSIUM 4.3 3.3 - 5.1 mmol/L [facility] CO2 28 21 - 35 mmol/L [facility] BUN 14 6 - 19 mg/dL [facility] CREATININE 0.70 0.5 - 1.5 mg/dL [facility] GLUCOSE 123(H) 70 - 99 mg/dL [facility] CALCIUM 9.2 8.4 - 10.3 mg/dL [facility] EGFR 92 >59 mL/min/1.7 3m2 [facility] Comment:Estimated glomerular filtration rate calculated using the CKD-EPI refit equation. ANION GAP 12 10 - 20 mmol/L [facility] Blood 11/25/2024 9:19 AM EDT 11/25/2024 9:30 AM EDT us Orlin Alvares DO LAB BLOOD ORDERABLES Final Re sult [facility] [address] [place] [address] * TTE COMPREHENSIVE (11/25/2024 9:07 AM EDT) [...] Resu lt from Last 3 Months Insurance [employer] MEDEX SUPPLEMENT MEDICARE PART A & B Care Teams Interventional Radiologist Relationship Specialty Start Date End Date Zainab Bernal MD 2 [facility] [address] [place] [phone] PCP - General Internal Medicine 01/22/23 Additional Source Comments The information contained in this document represents components of the legal health record. It is not the complete legal health record.[facility]
[2025-02-08 10:25] LABS: Free T4 (Free Thyroxine) 1.15 ng/dL (0.71-1.85); Thyroid Stimulating Hormone 0.23 uIU/mL (0.32-4.0)
[2025-02-08 10:36] LABS: Folate 15.5 ng/mL (> or = 4.0); Vitamin B12 804 pg/mL (200-900)
== END 2025-02-08 08:50 | disposition home or self-care (01) ==
LOC: HO.LAB 08:49
PROVIDERS: Visit Provider Internal Medicine
DX: J45.909 Unspecified asthma, uncomplicated (principal); R09.02 Hypoxemia; J98.11 Atelectasis; E03.9 Hypothyroidism, unspecified; E78.00 Pure hypercholesterolemia, unspecified; R05.3 Chronic cough; R73.02 Impaired glucose tolerance (oral); R06.09 Other forms of dyspnea; Z87.891 Personal history of nicotine dependence; Z13.6 Encounter for screening for cardiovascular disorders; Z13.29 Encounter for screening for other suspected endocrine disorder; Z13.1 Encounter for screening for diabetes mellitus; Z13.21 Encounter for screening for nutritional disorder
CPT/HCPCS: 36415; 80053; 80061; 82306; 82607; 82746; 83036; 84439; 84443; 85025; 99212

== ENCOUNTER 2025-02-08 09:11 | Outpatient (AMB) | payer MEDICARE, SELFPAY ==
--- NOTE | 2025-02-08 09:14 | MHC.OFFVIS ---
Vital Signs 02/08/25 09:15 Height 5 ft 4 in Weight 175 lb 4.28 oz BMI 30.1 BP 140/78 H Blood Pressure Location Lt brachial Position Sitting Pulse 58 Pulse Source Pulse Oximeter Pulse Oximetry (%) 95 Oxygen Delivery Method Room Air Intake Visit Reasons: Hypoxemia Allergies venom-honey bee Allergy (Intermediate, Verified 02/08/25 09:18) swelling sulfamethoxazole (From Bactrim) Adverse Reaction (Intermediate, Verified 02/08/25 09:18) nausea trimethoprim (From Bactrim) Adverse Reaction (Intermediate, Verified 02/08/25 09:18) nausea estradiol (From Vagifem) Adverse Reaction (Unknown, Verified 02/08/25 09:18) rash HPI HPI Hypoxemia: Details: Amanda is a pleasant 69 year old female, former minimal smoker, quit 30+ years ago underlying asthma, CAD, HTN, and Grave's disease. She was initially referred by PCP for pulmonary evaluation for new onset hypoxia, lowest 87% at PCP office. Previously 6MWT was performed and patient did not require supplemental oxygen. Overnight oximetry performed which revealed 6 minutes of hypoxia, however she did not want to initiate nocturnal supplemental oxygen or possible CPAP therapy for mild MARGOT. At the last visit, Breo was ordered for underlying asthma and increase in dyspnea as well as occasional cough/wheezing. Unfortunately she reports the cost of Breo was significant, Advair was sent as an alternative with similar outcome. Patient states her insurance will not cover the cost of inhalers, however had staff look into it and appears she has a high deductible. Denies any visits to urgent care or hospitalizations related to respiratory distress since the last visit. Of note, prior chest CT 10/2024 revealed scattered areas of atelectasis and will have repeat CT in one year to assess stability. [facility] Medical History CAD (coronary artery disease) Medicare annual wellness visit, initial Colon cancer screening Colonoscopy refused Moderate tricuspid regurgitation Hypersomnia Osteopenia Impaired glucose tolerance Graves disease Hypertension Obesity (BMI 30-39.9) Hypothyroid Surgical History Hx of colonoscopy History of eye surgery History of oral surgery History of tonsillectomy History of tubal ligation Family History Father Colon cancer Mother CAD (coronary artery disease) Myocardial infarction Paternal Aunt Myocardial infarction Sister Diabetes Hypertension Social History (Reviewed 02/08/25 @ 09:18 by Stella Chaney [facility]) Housing: House Are you a primary critical care paramedic to a significant other at home: No Do you presently have visiting nurse or other home services: No Alcohol intake: current Alcohol intake frequency: holidays/special occasions only Comment: holiday 1 drink Patient Tobacco Use Status: Former Tobacco user Tobacco use type: Cigarette Years Smoked: 15 years old e-Cigarette/Vaping Use: Never Used Second Hand Smoke Exposure: No service: No Current occupational status: retired Cognitive needs: No Hearing needs: No Vision needs: Yes (glasses) Review of Systems Const Denies chills, Denies excessive sweating, Denies fever(s), Denies headache(s) and Denies night sweats Eyes Denies dry eyes, Denies irritation and Denies itchy eyes ENT Reports Normal hearing present and Denies headache(s) Card Denies chest pain, Denies chest pain at rest, Denies chest pain with activity, Denies claudication, Denies leg edema, Reports dyspnea on exertion, Denies orthopnea and Denies paroxysmal nocturnal dyspnea Resp Denies chest congestion, Reports cough, Denies excessive phlegm production, Denies pain on inspiration, Denies pain with cough, Reports dyspnea on exertion, Denies stridor and Reports wheezing Musc Denies myalgias Neuro Reports Normal hearing present and Denies headache(s) Endo Denies excessive sweating Pro/Lymph Denies lymphadenopathy Aller/Immun Denies itchy eyes, Denies seasonal rhinorrhea and Reports wheezing Physical Exam Vital Signs: Last Vital Signs Pulse 58 02/08/25 09:15 BP 140/78 H 02/08/25 09:15 Pulse Ox 95 02/08/25 09:15 Oxygen Delivery Method Room Air 02/08/25 09:15 BMI result Body Mass Index 30.1 Const General: cooperative, healthy appearing, comfortable, no acute distress, well developed and alert Orientation/consciousness: patient oriented x3 Limitations: no limitations HEENT Head: Yes normal to inspection, Yes normocephalic and Yes atraumatic Ears: hearing grossly normal bilaterally and external ears normal Eyes General: appearance normal, both eyes and all related structures Eyelids: Yes eyelids normal Sclerae: sclerae normal EOM: EOMs intact bilaterally Neck Neck: Yes normal visual inspection and Yes no lymphadenopathy Lymphatic: no lymphadenopathy noted Chest Chest palpation & inspection: normal inspection of the chest Resp Effort & Inspection: normal respiratory effort, able to speak in complete sentences, no audible wheezes, no cough, no stridor, not tachypneic, no tripod positioning and no use of accessory muscles Auscultation: diminished lung sounds Cardio Jugular venous distension: no JVD Rate: regular rate Rhythm: regular rhythm Skin Other: warm, dry General skin exam: no rashes or lesions noted Neuro General: patient oriented x3 Cranial nerves: Yes Normal hearing present Cognition (Neuro): normal cognition Gait exam (Neuro): Normal gait present Extrem General: Yes normal to inspection, Yes capillary refill normal, Yes no clubbing, cyanosis or edema and Yes no pedal edema Psych Appearance: grossly normal and well kempt Speech and movement: Normal speech and movement present and Clear speech present Affect: normal affect Attitude: cooperative Thought process: Normal thought process present Thought content: Normal thought content present Insight: Good insight present (Psych) Judgement: Good judgement present (Psych) Assessment & Plan Assessment & Plan (1) Asthma: Code(s): J45.909 - Unspecified asthma, uncomplicated Category: Medical (2) Chronic cough: Code(s): R05.3 - Chronic cough Category: Medical (3) Dyspnea on exertion: Code(s): R06.09 - Other forms of dyspnea Category: Medical (4) Atelectasis: Code(s): J98.11 - Atelectasis Category: Medical Plan Will attempt to send in [facility], to see if there is less of an out of pocket cost. Patient aware to call if not financially feasible. Prior chest CT 10/2024 revealed scattered atelectasis otherwise no significant findings, encouraged deep breathing and forceful coughing with repeat CT to be scheduled in one year to assess stability. All questions were answered and patient is in agreement of plan. Will follow-up in 3 months or sooner if needed. Medications: New fluticasone propion-salmeterol 100-50 mcg/dose (Wixela Inhub) 1 inh inhalation BID 60 ea 3RF J45.909 - Unspecified asthma, uncomplicated Coding Level of Care Code Est Pt Level 4 (14232) Diagnoses Asthma J45.909 Chronic cough R05.3 Dyspnea on exertion R06.09 Atelectasis J98.11
[2025-02-08 09:15] VITALS: BP 140/78; PULSE 58; O2SAT 95; BMI 30.1
== END 2025-02-08 09:31 | disposition home or self-care (01) ==
LOC: HO.HPS 09:11
PROVIDERS: PCP Internal Medicine; Visit Provider Nurse Practitioner Family
DX: J45.909 Unspecified asthma, uncomplicated (principal); R05.3 Chronic cough; R06.09 Other forms of dyspnea; J98.11 Atelectasis
CPT/HCPCS: 99214

== ENCOUNTER 2025-02-26 10:29 | Outpatient (REF) | payer MEDICARE, SELFPAY ==
--- NOTE | ~2025-02-26 | MM_ITS ---
EXAMINATION: DXA BONE DENSITY AXIAL HISTORY: M81.0 - Age-related osteoporosis without current pathological fracture TECHNIQUE: Numascale Dual energy absorptiometry (DEXA) of the lumbar spine, total left hip, and femoral neck was performed. COMPARISON: Comparison is made with the prior examination dated 08/09/2022. FINDINGS: The bone mineral density of the lumbar spine is 1.069 g/cm2, corresponding to a T-score of -0.8, and a Z-score of 0.4. This is indicative of normal bone mineral density. This represents a BMD change of 8.2% compared to the prior exam. This is statistically significant. The bone mineral density of the left total hip is 0.815 g/cm2, corresponding to a T-score of -1.5, and a Z-score of -0.3. This is indicative of osteopenia. This represents a BMD change of -6.3% compared to the prior exam. This is statistically significant. The bone mineral density of the left femoral neck is 0.783 g/cm2, corresponding to a T-score of -1.8, and a Z-score of -0.4. This is indicative of osteopenia. This represents a BMD change of 0.4% compared to the prior exam. FRACTURE RISK: The FRAX index suggests a ten year probability of major osteoporotic fracture of 11.3%, and of hip fracture 2.2%. MM/XR DEXA axial skeleton IMPRESSION: Based on bone mineral density, and according to World Health Organization (WHO) criteria, the diagnosis is consistent with osteopenia. Statistically, 68% of repeat scans fall within 1 SD (+/- 0.010 g/cm2 for AP spine L1-L4) and 1 SD (+/- 0.012 g/cm2 for femur total) FRAX is a trademark of the [employer]'s [place] [employer] Metabolic Bone Disease, a World Health Organization (WHO) Collaborating Center. Electronically signed by: Edvin Powers MD 02/26/2025 11:18 AM EDT
== END 2025-02-26 10:30 | disposition home or self-care (01) ==
LOC: HO.MAMMO 10:29
PROVIDERS: PCP Internal Medicine; Visit Provider Internal Medicine
DX: Z12.31 Encounter for screening mammogram for malignant neoplasm of breast (principal); M81.0 Age-related osteoporosis without current pathological fracture; M85.80 Other specified disorders of bone density and structure, unspecified site
CPT/HCPCS: 77063; 77067; 77080

== ENCOUNTER → 2025-02-26 11:30 | Outpatient (BNV) | payer MEDICARE, SELFPAY | PROVIDERS: PCP Internal Medicine; Visit Provider Radiology Diagnostic Radiology | DX: E28.39 Other primary ovarian failure (principal) | CPT/HCPCS: 77080 ==

== ENCOUNTER 2025-04-12 09:31 | Outpatient (AMB) | payer MEDICARE, SELFPAY ==
[2025-04-12 09:43] VITALS: BP 150/110; PULSE 54; TEMP 36.8; O2SAT 99; BMI 29.0
--- NOTE | 2025-04-12 09:43 | A.OFFPC_ITS ---
Vital Signs 04/12/25 09:43 04/12/25 10:02 Height 5 ft 4 in Weight 169 lb BMI 29.0 BP 150/110 H 140/80 H Blood Pressure Location Lt brachial Lt radial Position Sitting Sitting Pulse 54 Pulse Source Pulse Oximeter Temp 98.3 F Temp Source Temporal Artery Scan Pulse Oximetry (%) 99 Oxygen Delivery Method Room Air Intake Visit Reasons: cholesterol, cad Allergies venom-honey bee Allergy (Intermediate, Verified 04/12/25 09:47) swelling sulfamethoxazole (From Bactrim) Adverse Reaction (Intermediate, Verified 04/12/25 09:47) nausea trimethoprim (From Bactrim) Adverse Reaction (Intermediate, Verified 04/12/25 09:47) nausea estradiol (From Vagifem) Adverse Reaction (Unknown, Verified 04/12/25 09:47) rash Medication List - Last Reconciled 04/12/25 by Zainab Bernal MD albuterol sulfate 90 mcg/actuation 2 puffs inhalation Q4-6H PRN aspirin 81 mg PO DAILY atorvastatin 40 mg PO DAILY 90 days budesonide-formoterol 80-4.5 mcg/actuation (Breyna) 1 inh inhalation BID cholecalciferol (vitamin D3) 50 mcg PO DAILY cyanocobalamin (vitamin B-12) 1,000 mcg PO DAILY fluticasone furoate-vilanterol 100-25 mcg/dose (Breo Ellipta) 1 inh inhalation DAILY isosorbide mononitrate ER 30 mg PO DAILY levothyroxine 88 mcg PO QAM metoprolol succinate ER 50 mg PO DAILY multivitamin,[id number]-tcvh-[id number] (Complete Multivitamin tablet) 1 tab PO DAILY Tobacco use date assessed: 06/11/24 Fall risk assessment: No Falls in past year Last assessed Fall Risk: 06/11/24 Dental Screening Dental Screen Date: 06/11/24 Did you have a dental visit in the last 12 months?: Yes Did you have a dental problem in the last 6 months where you did not have access to dental care?: No Was dental information given to patient?: Patient has dentist HPI cholesterol, cad HPI Details shingles R lower back HPI Comments History of Present Illness Details History of Present Illness The patient is a 70 year old individual presenting for follow-up and management of chronic conditions. The patient's medical history is significant for being overweight, hypertension, hypothyroidism, impaired glucose tolerance, osteopenia, coronary artery disease, hypercholesterolemia, and asthma. The patient also has a history of tubular adenoma of the colon, with the last colonoscopy in August 2023. The patient follows with a junior brand manager for hypoxemia and asthma. The patient was prescribed Wixela but did not obtain it due to the high cost of approximately $300. The patient experienced an episode of shingles on the back around Labor Day, which was treated with medication and resolved. However, several weeks later, a new, very itchy, raised rash developed in the same location, which is still present. The patient also reports a urinary tract infection about a month ago, which was treated. Recent blood work from January 2025 showed a normal blood count, electrolytes, and renal function. The blood sugar was 116 with a hemoglobin A1c of 6.3%, an increase from previous values of 6.0% and 5.8%. LDL cholesterol was 60, TSH was mildly low, and B12 was normal. A bone density scan in January 2025 revealed that bone density in the hip had decreased by 6%, while the spine was better. The patient's change coordinator wants the patient to lose 20 pounds. Health Maintenance The patient is up to date on colonoscopy and mammogram. Regarding vaccinations, the patient was advised to wait one year after the recent shingles infection before getting the shingles vaccine. Social History - Financial: Reports being unable to aff ord the prescribed Wixela inhaler due to its high cost ($300). - Diet: Reports having cut down on sugar intake. - The patient reports not eating salt. - Exercise: Reports not exercising. Results - Labs (January 2025): - CBC: Normal. - Electrolytes: Normal. - Renal function: Normal. - Blood sugar: 116 mg/dL. - Hemoglobin A1c: 6.3% (up from 6.0% and 5.8%). - Liver function: Normal. - LDL cholesterol: 60 mg/dL. - TSH: Mildly low. - B12: Normal. - Allergy markers: Mildly elevated. - Tests and Diagnostics: - Bone Density Scan (January 2025): Sh owed osteopenia, with a 6% decrease in hip bone density and improvement in the spine. - Colonoscopy (August 2023): Revealed a t ubular adenoma. - Mammogram: Up to date. [facility] Medical History CAD (coronary artery disease) Medicare annual wellness visit, initial Colon cancer screening Colonoscopy refused Moderate tricuspid regurgitation Hypersomnia Osteopenia Impaired glucose tolerance Graves disease Hypertension Obesity (BMI 30-39.9) Hypothyroid Surgical History Hx of colonoscopy History of eye surgery History of oral surgery History of tonsillectomy History of tubal ligation Family History Father Colon cancer Mother CAD (coronary artery disease) Myocardial infarction Paternal Aunt Myocardial infarction Sister Diabetes Hypertension Social History Housing: House Are you a primary childcare center director to a significant other at home: No Do you presently have visiting nurse or other home services: No Alcohol intake: current Alcohol intake frequency: holidays/special occasions only Comment: holiday 1 drink Patient Tobacco Use Status: Former Tobacco user Tobacco use type: Cigarette Years Smoked: 15 years old e-Cigarette/Vaping Use: Never Used Second Hand Smoke Exposure: No service: No Current occupational status: retired Cognitive needs: No Hearing needs: No Vision needs: Yes (glasses) Questionnaire PHQ-9 Over the last 2 weeks, how often have you been bothered by any of the following problems? 1. Little interest or pleasure in doing things: not at all 2. Feeling down, depressed, or hopeless: not at all 3. Trouble falling or staying asleep, or sleeping too much: nearly every day 4. Feeling tired or having little energy: nearly every day 5. Poor appetite or overeating: not at all 6. Feeling bad about yourself - or that you are a failure or have let yourself or your family down: not at all 7. Trouble concentrating on things, such as reading the newspaper or watching television: not at all 8. Moving or speaking so slowly that other people could have noticed. Or the opposite - being so fidgety or restless that you have been moving around a lot more than usual: not at all 9. Thoughts that you would be better off or of hurting yourself in some way: not at all Total score: 6 Depression Screening Interpretation: Positive Depression Screening Done: Yes 85599 - PHQ-9 Billing: Yes Source: Developed by Drs. Edvin Phillip, Micky Barriga and colleagues, with an educational radha from [employer]. Thrive Questionnaire Date Thrive assessed: 12/16/24 I am a: Patient What is your living situation today?: I have a steady place to live Within the past 12 months, did the food you bought not last and you didn't have the money to get more?: Never true Within the past 12 months, did you worry whether your food would run out before you got money to buy more?: Never true Do you have trouble paying for medicines?: No Do you have trouble getting transportation to medical appointments?: No Do you have trouble paying your heating and electricity bill?: No Do you have trouble taking care of your child, family member or friend?: No Do you have trouble with day-to-day activities such as bathing, preparing meals, shopping, managing finances, etc.?: No Are you currently unemployed and looking for a job?: No Are you interested in more education?: No Please select the resources that you would like help with: None Currently or been in a relationship where the following occur: No concerns reported THRIVE Score: 0 AUDIT C Alcohol Use Questionnaire (AUDIT-C) 3. How often do you have six or more drinks on one occasion?: Never Total Score: 0 MOHAMUD-7 AMB Questionnaire MOHAMUD-7 Date MOHAMUD - 7 assessed: 06/11/24 Feeling nervous, anxious, or on edge: 0 = Not at all Not being able to stop or control worryin = Not at all Worrying too much about different things: 0 = Not at all Trouble relaxin = Not at all Being so restless that it is hard to sit still: 0 = Not at all Becoming easily annoyed or irritable: 0 = Not at all Feeling afraid as if something awful might happen: 0 = Not at all Total MOHAMUD-7 score (0-4 normal; 5-9 mild; 10-14 moderate; 15-21 severe): 0 Source: Developed by Drs. Edvin Phillip, Micky Barriga and colleagues, with an educational radha from [employer]. Review of Systems Narrative Review of Systems - Integumentary: Reports an itchy, raised rash on the back in the area of a past shingles infection. - Denies any other rashes. - Genitourinary: Reports a urinary tract infection about a month ago. - Denies current problems with urination. - Gastrointestinal: Reports normal bowel movements. Physical exam (Primary Care) Vital Signs: Last Vital Signs Temp 98.3 F 04/12/25 09:43 Pulse 54 04/12/25 09:43 BP 140/80 H 04/12/25 10:02 Pulse Ox 99 04/12/25 09:43 Oxygen Delivery Method Room Air 04/12/25 09:43 BMI result Body Mass Index 29.0 Tobacco/Smoking Status: Tobacco use Status Tobacco use date assessed 06/11/24 04/12/25 09:48 Patient Tobacco Use Status Former Tobacco user 04/12/25 09:48 Tobacco use type Cigarette 04/12/25 09:48 e-Cigarette/Vaping Use Never Used 04/12/25 09:48 PHQ-9: PHQ-9 Score PHQ-9: Total score 6 04/12/25 19:37 Depression Screening Interpretation: Positive Thrive Assessment: Date of Thrive Assessment Date Thrive assessed 12/16/24 04/12/25 09:48 Currently or been in a relationship where the following occur: No concerns reported Narrative Physical Exam - Vitals: Blood pressure 140/80 mmHg. - Respiratory: Auscultation of the chest was performed. - Integumentary: Examination of the back reveals a raised, excoriated rash consistent with dermatitis, not active shingles. Const General: alert; No acute distress Eyes Conjunctivae: conjunctivae normal Resp Auscultation: clear to auscultation bilaterally Cardio Rate: regular rate Rhythm: regular rhythm GI Inspection: Yes normal to inspection Extrem General: Yes normal to inspection and No edema Coding Level of Care Code Complex visit Add On G2211 Diagnoses Essential hypertension I10 Hypertension type: essential hypertension Coronary artery disease involving squaxin coronary artery of squaxin heart without angina pectoris I25.10 Associated angina: without angina Coronary Disease-Associated Artery/Lesion type: squaxin artery [place] vs. transplanted heart: squaxin heart Hypercholesterolemia E78.00 Impaired glucose tolerance R73.02 Acquired hypothyroidism E03.9 Hypothyroidism type: acquired Mild intermittent asthma without complication J45.20 Asthma complication type: uncomplicated Asthma persistence: intermittent Asthma severity: mild Intrinsic eczema L20.84 Eczema type: intrinsic Additional Codes PHQ-9 - 53829 - PHQ-9 Billing: Yes ([id number]) Assessment & Plan Assessment & Plan (1) Hypertension: Code(s): I10 - Essential (primary) hypertension Category: Medical Qualifiers: Hypertension type: essential hypertension Qualified Code(s): I10 - Essential (primary) hypertension Plan: Continue with blood pressure medication. Decrease salt intake and exercise on isosorbide mononitrate, metoprolol 50 mg once a day (2) CAD (coronary artery disease): Comment: CTA April 2023 Code(s): I25.10 - Atherosclerotic heart disease of squaxin coronary artery without angina pectoris Category: Medical Qualifiers: Associated angina: without angina Coronary Disease-Associated Artery/Lesion type: squax[place] artery [place] vs. transplanted heart: squaxin heart Qualified Code(s): I25.10 - Atherosclerotic heart disease of squaxin coronary artery without angina pectoris Plan: Control the cholesterol, weight, blood pressure, continue with aspirin 81 mg once a day (3) Hypercholesterolemia: Code(s): E78.00 - Pure hypercholesterolemia, unspecified Category: Medical Plan: Avoid fried foods, chicken skin, eggs, butter margarine, pastries and meat. Be it pork or beef they have a lot of cholesterol LDL goal of less than 70 and triglyceride of less than 150 on atorvastatin 40 mg once a day (4) Impaired glucose tolerance: Code(s): R73.02 - Impaired glucose tolerance (oral) Category: Medical Plan: Decrease the amount of carbohydrate intake, pasta, bread, rice and potatoes are all sugar and that is aside from all the sweet stuff, remember that fruits are good but they are Sweet also. (5) Hypothyroid: Code(s): E03.9 - Hypothyroidism, unspecified Category: Medical Qualifiers: Hypothyroidism type: acquired Qualified Code(s): E03.9 - Hypothyroidism, unspecified Plan: Continue with thyroid medication but will need retesting as the TSH was low (6) Asthma: Code(s): J45.909 - Unspecified asthma, uncomplicated Category: Medical Qualifiers: Asthma complication type: uncomplicated Asthma persistence: intermittent Asthma severity: mild Qualified Code(s): J45.20 - Mild intermittent asthma, uncomplicated Plan: Patient has seen Pulmonary and was placed on Wixela. (7) Eczema: Comment: R lower back Code(s): L30.9 - Dermatitis, unspecified Category: Medical Qualifiers: Eczema type: intrinsic Qualified Code(s): L20.84 - Intrinsic (allergic) eczema Plan: Steroid creams prescription sent in Plan Plan Patient was informed and verbally consented to the use of an ambient scribe for clinic note documentation during this visit. 1. Asthma The patient was previously prescribed Wixela by a junior brand manager but did not fill it due to the high cost. A prescription for Breo, a once-daily inhaler, will be sent as an alternative to see if it is covered by the patient's insurance. The patient was instructed to rinse the mouth after using the inhaler. 2. Hypertension The patient's blood pressure was 140/80 mmHg in the office, and a recent reading at a [facility] was also noted to be high. The current regimen includes metoprolol 50 mg and isosorbide mononitrate. For now, no changes will be made to the medication. The patient is instructed to continue monitoring blood pressure at home and to follow up sooner if readings are consistently high, as adding a second medication may be necessary. 3. Impaired Glucose Tolerance The patient's hemoglobin A1c has increased to 6.3% from previous levels of 6.0% and 5.8%, indicating worsening glucose control. The plan is to continue encouraging dietary modifications, as the patient reports cutting down on sugar. 4. Subclinical Hyperthyroidism Due To Medication Recent lab work showed a mildly low TSH level, suggesting possible over- treatment with thyroid medication. Thyroid function will be retested in six weeks to two months. If the TSH remains low, an adjustment to the medication dosage will be made. 5. Osteopenia The patient's bone density scan showed a 6% decrease in the hip, although the diagnosis remains osteopenia. The importance of calcium, vitamin D, and exercise was emphasized. Treatment with bone-strengthening medication was discussed as an option, but the patient declined at this time. 6. Hypercholesterolemia The patient's LDL cholesterol is 60 mg/dL, which is below the goal of less than 70 mg/dL. Continue atorvastatin 40 mg once daily. 7. Coronary Artery Disease The patient will continue the current medication regimen, which includes aspirin 81 mg once a day. 8. Dermatitis The patient has an itchy, raised rash on the back at the site of a prior shingles outbreak, which is diagnosed as post-inflammatory dermatitis or eczema from scratching. A steroid cream has been prescribed to be applied twice a day for one to two weeks, or until the rash resolves. Discussion Notes I reviewed the lab results with the patient, highlighting that the LDL cholesterol is well-controlled at 60 mg/dL, which is below the goal of 70 mg/dL. I explained that the hemoglobin A1c has risen to 6.3%, indicating a negative trend in glucose control. We also discussed the low TSH level, and I informed the patient that we will retest thyroid function in six weeks to two months to determine if an adjustment to the thyroid medication is necessary. Regarding the recent bone density scan, I explained that there was a 6% decrease in the hip but reassured the patient that the diagnosis remains osteopenia, not osteoporosis. We discussed the benefits of calcium, vitamin D, and exercise. I presented the option of bone-strengthening medication, which the patient declined due to not wanting another pill. I addressed the rash on the patient's back, explaining that it is not a recurrence of shingles but rather a form of eczema or skin irritation from scratching. I prescribed a steroid cream for treatment. We discussed the financial barrier to obtaining the prescribed Wixela inhaler. I explained that I would prescribe Breo as an alternative, noting that insurance coverage for these controller inhalers can be unpredictable. In response to the in-office blood pressure reading of 140/80 mmHg, I explained that while it is high, I would hold off on adding a new medication at this time. I stressed the importance of blood pressure control and instructed the patient to continue monitoring readings at home and to return for a follow-up if they remain elevated. Patient Instructions - Continue to check your blood pressure at home. - If your readings are consistently high, you must call the office to schedule a follow-up visit sooner than your next planned wellness check. - For the new asthma inhaler, Breo, use it once a day. - Remember to rinse your mouth with water after you use it. - For the itchy rash on your back, apply the prescribed steroid cream twice a day for one to two weeks. - You can stop using the cream once the rash has cleared up. - You will need to have your thyroid blood levels rechecked in about 6 weeks to 2 months. - To help keep your bones strong, make sure you are getting enough calcium and vitamin D, and try to incorporate regular exercise into your routine. - You must wait for one year after having shingles before you can get the shingles vaccine. - Continue taking all your other medications as prescribed, including those for your heart, cholesterol, and the daily aspirin. Medications: New fluticasone furoate-vilanterol 100-25 mcg/dose (Breo Ellipta) 1 inh inhalation DAILY 60 ea 1RF J45.909 - Unspecified asthma, uncomplicated triamcinolone acetonide 0.5% 1 appl topical BID 45 grams 0RF 14 days L30.9 - Dermatitis, unspecified
[2025-04-12 10:02] VITALS: BP 140/80
--- OUTSIDE RECORDS SUMMARY | 2025-04-12 10:56 | XMS_ITS | Encounter Summary ---
Author Organization [facility] Address [address] [place] [address] [place] [phone] Phone Care Team Providers Care Resident Doctor Name Role Phone Zainab Bernal MD Primary Care Provider [phone] Encounter Details Date Type Department Care Team (Late st Contact Info) Description 10/26/2024 Procedure Pass Echo [facility] [place] [address] Social History Tobacco Use Types Packs/Day Years [...] Care Team (Late st Contact Info) Description 11/30/2025 8:00 AM EDT Office Visit [facility] [address], [address] [place] [address] Orlin Alvares DO [address] [place] [address] [email or web address] documented as of this encounter Visit Diagnoses Not on filedocumented in this encounter Care Teams Resident Doctor Relationship Specialty Start Date End Date Gabe, Zainab Cano MD [address] [place] [address] Drive [address] [place] [phone] PCP - General Internal Medicine 01/22/23 documented as of this encounter Additional Source Comments The information contained in this document represents components of the legal health record. It is not the complete legal health record.[facility]
--- OUTSIDE RECORDS SUMMARY | 2025-04-12 10:56 | XMS_ITS | Clinical Summary ---
Author Organization [facility] Address [address] [place] [id number] Phone Care Team Providers Care Aquaculture Director Name Role Phone Zainab Bernal MD Primary Care Provider [phone] Allergies Active Allergy Reactions Criticality Noted Date Comments Bee Pollen 01/22/2023 Medications aspirin 81 MG EC tablet Take 1 tablet by mouth every morning. Active atorvastatin (LIPITOR) 40 MG tablet Take 1 tablet by mouth every morning. Active cyanocobalamin, vitamin B-12, 1000 MCG tablet Take 1 tablet by mouth every morning. Active isosorbide mononitrate (IMDUR) 30 MG 24 [...] Take 2,000 Units by mouth daily. Active nitrofurantoin (MACROBID) 100 MG capsule Take 1 capsule (100 mg total) by mouth 2 (two) times a day for 5 days. 10 capsule 03/23/20 25 Active Problems Problem Noted Date Diagnosed Date Atherosclerosis of coronary artery 10/26/2024 Assessment & Plan (03/02/2025 7:54 AM EDT): Completely asymptomatic with a normal ejection fraction we will continue to treat this medically and aggressively with risk factor modification. In addition she needs to lose about 25 pounds I talked to her in detail regarding the Assessment & Plan (10/26/2024 7:46 AM EDT): She does have some CAT scan proven coronary disease but no intervention is indicated at the present time she just needs very aggressive risk factor modification Pure hypercholesterolemia 10/26/2024 Assessment & Plan (03/02/2025 7:54 AM EDT): LDL needs to be less than 70 and preferably less than 55 I believe it is 58 mg/dL she does have coronary disease with a 60 to 70% LAD stenosis that is asymptomatic Assessment & Plan (10/26/2024 7:46 AM EDT): She is on high intensity statin therapy ideally LDL should be less than 70 and preferably less than 55 mg/dL. I have ordered her some fasting lipids and an A1c. Benign essential hypertension 10/26/2024 Assessment & Plan (03/02/2025 7:54 AM EDT): Well-controlled to the guidelines but she is getting side effects from her metoprolol which I asked her to cut in half Assessment & Plan (10/26/2024 7:46 AM EDT): Blood pressure and heart rate are bit high I am just going to increase her metoprolol to 100 mg in the evening time Palpitations 10/26/2024 Assessment & Plan (10/26/2024 7:46 AM EDT): No palpitations at this time we have ordered her an echocardiogram Encounters Date Type Department Care Team Description 03/18/2025 12:40 PM EDT Office Visit [facility] [address] [address] Jolanta Gordon, Deborah Betancourt, LUCIAN Acute cystitis with hematuria (Primary Dx) 03/02/2025 7:45 AM EDT Office Visit [facility] [address], [address] [place] [address] Orlin Alvares DO Benign essential hypertension (Primary Dx); Pure hypercholesterolemia; Atherosclerosis of [place] coronary artery of [place] heart without angina pectoris 01/18/2025 6:26 PM EDT - 01/18/2025 6:36 PM EDT Emergency [facility] [address] [place] [address] Discharge Disposition: Home or Self Care from Last 3 Months Social History Tobacco [...] Sign Reading Time Taken Comments Blood Pressure 143/84 03/18/2025 1:18 PM EDT Pulse 73 03/18/2025 1:18 PM EDT Temperature 36.5 C (97.7 F) 03/18/2025 1:18 PM EDT Respiratory Rate 16 03/18/2025 1:18 PM EDT Oxygen Saturation 95% 03/18/2025 1:18 PM EDT Inhaled Oxygen Concentration - - Weight 78 kg (172 lb) 03/02/2025 7:42 AM EDT Height 160 cm (5' 2.99 ) 03/02/2025 7:42 AM EDT Body Mass Index 30.48 03/02/2025 7:42 AM EDT Plan of Treatment Upcoming Encounters Date Type Department Care Team (Late st Contact Info) Description 11/30/2025 8:00 AM EDT Office Visit [facility] [address] [facility] 3rd Floor, [address] [place], [place] [id number] Orlin Alvares DO [address] [facility] [address] [place] [id number] Health Maintenance Due Date Last Done Comments TSH LEVEL 1953 DEPRESSION SCREENING 1965 HEPATITIS C SCREENING 1971 MAMMOGRAM 1993 COLOGUARD 1998 COLONOSCOPY 1998 COLORECTAL CANCER SCREENING 1998 FIT TEST 1998 FOBT 1998 SIGMOIDOSCOPY 1998 VIRTUAL COLONOSCOPY 1998 ZOSTER VACCINES (1 of 2) 2003 OSTEOPOROSIS SCREENING INITI AL (ONE-TIME) 2018 INFLUENZA VACCINE (#1) 2024 COVID-19 VACCINE ( - 2024-2 6 season) 2025 03/29/2021, 08/01/2020, 07/11/2020 BLOOD PRESSURE 09/16/2025 03/18/2025 RSV VACCINE (1 - 1-dose 75+ series) 01/05/2028 Adult Td,Tdap Booster 10/06/2033 10/07/2023 PNEUMOCOCCAL VACCINES (50+ years) Completed 06/11/2024, 11/10/2019 SMOKING STATUS SCREENING (On ce After 26 Yrs) Completed 03/18/2025 HEPATITIS A VACCINES Aged Out No long [...] Procedure Name Priority Date/Time Associated Diagnosis Comments URINE CULTURE Routine 03/18/2025 2:38 PM EDT Acute cystitis with hematuria POCT URINE DIPSTICK Routine 03/18/2025 1 :11 PM EDT from Last 3 Months Results * (ABNORMAL) Urine Culture (03/18/2025 2:38 PM EDT) Special Requests None 03/18/2025 2:38 PM EDT [facility] Urine Culture >100,000 colony forming units per mL MIXED JD (3 OR MORE COLONY TYPES) Culture indicates contamination . Please resubmit if necessary.(A) 03/20/2025 9:22 AM EDT [facility] Urine (Urine) 03/18/2025 2:3 8 PM EDT 03/18/2025 4:26 PM EDT us Deborah Lockett PA-C LAB MICROBIOLOGY CULTURE ORD ERABLES Final Result [facility] [address] [place] [address] * (ABNORMAL) POCT Urine Dipstick (Automated) (03/18/2025 1:11 PM EDT) COLOR HAMM[facility] TURBIDITY Slightly Cloudy [facility] GLUCOSE, POCT Negative Negative [facility] KETONE, POCT Trace(A) Negative [facility] OCCULT BLOOD, POCT Trace Intact(A) Negative [facility] SPECIFIC GRAVITY, POCT >1.030 1.001 - 1.030 [facility] ALBUMIN, POCT 1+(A) Negative [facility] Bili Negative Negative [facility] Urobilinogen 0.2 <1.0 [facility] NITRITE, POCT Negative Negative [facility] PH, POCT 5.5 5.0 - 8.0 [facility] WBC SCREEN, POCT Trace(A) Negative [facility] 03/18/2025 1:11 PM EDT 03/18/2025 1:13 PM EDT Jolanta Gordon BILINGUAL RECEPTIONIST LAB POCT ENTER/EDIT ORDERABLES Final Result [facility] [address] [place] [address], [facility] [phone] from Last 3 Months Insurance [employer] SUPPLEMENT MEDICARE PART A & B Care Teams Aquaculture Director Relationship Specialty Start Date End Date Zainab Bernal MD [address] [place] [address] PCP - General Internal Medicine 01/22/23 Additional Source Comments The information contained in this document represents components of the legal health record. It is not the complete legal health record.[facility]
== END 2025-04-12 10:18 | disposition home or self-care (01) ==
LOC: HO.HMCH 09:32
PROVIDERS: PCP Internal Medicine; Visit Provider Internal Medicine
DX: I10 Essential (primary) hypertension (principal); I25.10 Atherosclerotic heart disease of native coronary artery without angina pectoris; E78.00 Pure hypercholesterolemia, unspecified; R73.02 Impaired glucose tolerance (oral); E03.9 Hypothyroidism, unspecified; J45.20 Mild intermittent asthma, uncomplicated; L20.84 Intrinsic (allergic) eczema

== ENCOUNTER → 2025-04-12 09:31 | Outpatient (BNVA) | payer MEDICARE, SELFPAY | PROVIDERS: PCP Internal Medicine; Visit Provider Internal Medicine | DX: I10 Essential (primary) hypertension (principal); I25.10 Atherosclerotic heart disease of native coronary artery without angina pectoris; E78.00 Pure hypercholesterolemia, unspecified; R73.02 Impaired glucose tolerance (oral); E03.9 Hypothyroidism, unspecified; J45.20 Mild intermittent asthma, uncomplicated; L20.84 Intrinsic (allergic) eczema | CPT/HCPCS: 96127; 99212 ==